=== PATIENT | female | born 1945 | race Caucasian/White ===

== ENCOUNTER → 2018-10-21 | Outpatient (CLI) | payer MEDICARE, OTHER, SELFPAY ==
[2018-09-26 12:56] VITALS: BMI 24.5
--- NOTE | 2018-10-21 12:06 | BI_ITS ---
MAMMOGRAPHY - BILATERAL SCREENING REASON FOR EXAM: Female, 73 years old. Routine annual screening examination. PERTINENT HISTORY: Non-contributory. Bilateral breast implants. TECHNIQUE: Digital bilateral breast sandie (3D mammographic acquisition) in the CC and MLO projections. 2-D mediolateral oblique (MLO) and craniocaudad (CC) views of both breasts were obtained. CAD: Full Field Digital Mammography with Computer Added Detection was performed. COMPARISON: Comparison is made with prior examination dated March 09, 2017. FINDINGS: Breast Composition: The breasts are heterogeneously dense, which may obscure small masses. There are no dominant masses or suspicious calcifications. Since prior study, the breast implants have been replaced. Stable small benign-appearing bilateral axillary lymph nodes. No other significant abnormalities are identified. BI/SCREEN MAMM (CAD) W/SANDIE BILAT IMPRESSION: Stable bilateral screening mammogram. The bilateral breast implants have been replaced as compared to prior study. Yearly follow-up mammogram recommended. (A) ASSESSMENT CATEGORY: BIRADS Category 2: Benign. A letter regarding these results will be sent to the patient by the facility within 30 days. Approximately 10% of breast cancers are not detected by mammography. A normal mammogram should not delay biopsy of a clinically suspicious abnormality. [id number] Electronically Signed: Geovanny Eason, at 14:51 EDT , Service support ,
== END | disposition home or self-care (01) ==
PROVIDERS: Family Provider Internal Medicine; PCP Obstetrics & Gynecology; Referring Provider Obstetrics & Gynecology; Visit Provider Obstetrics & Gynecology
DX: Z12.31 Encounter for screening mammogram for malignant neoplasm of breast (principal)
CPT/HCPCS: 77063; 77067

== ENCOUNTER 2018-11-28 05:40 | Day surgery (SDC) | payer MEDICARE, OTHER, SELFPAY ==
--- NOTE | 2018-11-20 03:26 | HP_ITS ---
Intake Vital Signs 11/20/18 Body Mass Index (BMI) 24.5 11/20/18 Height 5 ft 5 in 11/20/18 Weight: 146 lb 3 oz 11/20/18 Body Mass Index (BMI) 24.3 11/20/18 Blood Pressure 142/74 H 11/20/18 Blood Pressure Location Rt brachial 11/20/18 Blood Pressure Position Sitting 11/20/18 Respiratory Rate 20 H 11/20/18 Pulse Rate 54 L 11/20/18 Pulse Ox 98 Intake Visit Reasons: update H&P for hernia repair Chief Complaint: update H&P for inguinal hernia X Ray Technologist Required: No Is patient in pain?: Yes (LLQ pain ) Pain scale (1-10): 3 Allergies latex Allergy (Mild, Verified 11/20/18 13:10) hives Sulfa (Sulfonamide Antibiotics) Allergy (Mild, Verified 11/20/18 13:10) hives codeine Adverse Reaction (Mild, Verified 11/20/18 13:10) palpitations levofloxacin [From Levaquin] Adverse Reaction (Mild, Verified 11/20/18 13:10) myalgias Medications atenolol 50 mg tablet 50 mg PO DAILY 09/26/18 [History Confirmed 11/20/18] atorvastatin 20 mg tablet 20 mg PO DAILY 09/26/18 [History Confirmed 11/20/18] calcium polycarbophil 625 mg tablet 1,250 mg PO DAILY 09/26/18 [History Confirmed 11/20/18] celecoxib 200 mg capsule 200 mg PO DAILY 09/26/18 [History Confirmed 11/20/18] glucosamine 750 dq-iunfbwxneb-zlp no.1 625 mg-C 30 ov-jqcr-zazh tablet 2 tab PO DAILY 09/26/18 [History Confirmed 11/20/18] lorazepam 0.5 mg tablet 0.5 mg PO QHS PRN 09/26/18 [History Confirmed 11/20/18] magnesium 250 mg tablet 250 mg PO DAILY 09/26/18 [History Confirmed 11/20/18] omeprazole 20 mg capsule,delayed release 20 mg PO DAILY 09/26/18 [History Confirmed 11/20/18] zolpidem 10 mg tablet PO QHS PRN tab 09/26/18 [History Confirmed 11/20/18] apremilast 30 mg tablet 30 mg PO QDAY tab 11/20/18 [History Confirmed 11/20/18] Is last menstrual period known: No Post menopausal: Yes Patient : No PFSH Medical History Back pain (Acute) Emphysema of lung (Acute) GERD (gastroesophageal reflux disease) (Acute) Hyperlipidemia (Acute) Osteoarthritis (Acute) COPD (chronic obstructive pulmonary disease) (Chronic) HTN (hypertension) (Chronic) Surgical History History of back surgery (Acute ~2012) History of bilateral breast implants (Acute) History of colonoscopy (Acute ~2018) History of dilation and curettage (Acute) History of esophagogastroduodenoscopy (EGD) (Acute ~2018) History of neck surgery (Acute) Status post hip surgery (Acute) Status post tonsillectomy and adenoidectomy (Acute) Family History Father Heart disease CHF (congestive heart failure) Diabetes Mother Heart disease Social History (Updated 11/20/18 @ 15:26 by Eleazar Ortega MD) Smoking Status: Former smoker HPI HPI HPI: ADA CHURCH, is a 73 F who presents to the office today for HPI HPI Surgical H&P: Yes HPI: ADA CHURCH, is a 73 F who presents to the office today for left groin pain. Patient notes that she has been having left groin pain which has been worsening and constant. She is very tender in the groin region and feeling bulging. ROS General General: No weight change, appetite, fatigue, colon cancer, breast cancer or weakness HEENT HEENT: No difficulty swallowing, eye injury, eye surgery, swollen glands or hoarseness Endo Endocrine: No thyroid disease, diabetes mellitus, thyroid cancer, Hair loss, heat intolerance or cold intolerance Musc Musculoskeletal: Yes back problems and arthritis; no rheumatoid arthritis, gout or joint pain Cardio Cardiovascular: Yes high blood pressure; no murmur, pacemaker, heart disease, atrial fibrillation, heart attack, heart stent, palpitations, shortness of breat with exertion or chest pain Resp Respiratory: Yes shortness of breath, No sleep apnea, No cough, Yes COPD, No asthma, Yes emphysema, No wheezing Gastro Gastrointestinal: Yes abdominal pain, No nausea or vomiting, No diarrhea, Yes constipation, No blood in stool, Yes acid reflux, No hemorrhoids, No ulcers, No gallbladder problem, No black,tarry stools Neuro Neurologic: No weakness Exam Const General: cooperative Orientation: alert, oriented x3 Resp Effort & Inspection: normal respiratory effort Auscultation: clear to auscultation bilaterally Cardio Rate: regular rate Rhythm: regular rhythm Heart Sounds: no murmurs GI Inspection: non-distended Palpation: soft, nontender Musc Other: Left groin pain with a small bulge Assessment & Plan Problems 1. Left groin pain R10.32 Plan Patient is having groin pain and would like her hernia repaired as she feels that it is unbearable. I do appreciate a very small bulge which is reducible. She does xiphoid tenderness over the direct hernia space. I explained laparoscopic robotic inguinal hernia repair. I explained the risks including but not limited to bleeding, infection, chronic groin pain, injury to surrounding structures, hernia recurrence. I also explained placing mesh. Patient understands risks and is willing to proceed. Eleazar Ortega MD Pager: [facility] [address] [place] [address], [address] [place] [address] Office: Coding Level of Care Code Off vis,est,level 3 Diagnoses Left groin pain R10.32 11/20/18 1526 <Electronically signed by Eleazar muñoz MD> Date _ Eleazar Ortega MD I have re-examined the patient. There are no clinical changes since date of exam.
[2018-11-20 13:11] VITALS: BMI 24.5
--- NOTE | 2018-11-28 05:47 | EKG12_ITS ---
Test Reason : PRE OP Blood Pressure : / mmHG Vent. Rate : 050 BPM Atrial Rate : 050 BPM P-R Int : 158 ms QRS Dur : 078 ms QT Int : 452 ms P-R-T Axes : 075 045 050 degrees QTc Int : 412 ms Sinus bradycardia Otherwise normal ECG No previous ECGs available Confirmed by SEBASTIÁN AYALA, ALEXANDREA ([id number]), subeditor HUSSAIN VO ([id number]) on 12/02/2018 1:34:55 PM Referred By: Eleazar Ortega Confirmed By:NAOMI LOWERY MD
[2018-11-28 06:21] VITALS: BP 130/56; PULSE 54; RESP 15; TEMP 36.4; O2SAT 100; BMI 26.2
[2018-11-28 06:26] LABS: Hematocrit 41.5 % (37-47); Hemoglobin 13.6 g/dL (12.0-15.0); Mean Corp Hgb Conc 32.8 g/dL (32-36); Mean Corpuscular Hgb 32.3 pg (27.0-32.0); Mean Corpuscular Volume 98.6 fL (81-99); Platelet Count 160 K/mm3 (150-450); RBC Distribution Width SD 43.4 fl (35.1-43.9); Red Blood Count 4.21 M/mm3 (4.2-5.4)
[2018-11-28 06:30] LABS: International Normalized Ratio 0.9; Partial Thromboplast Time 26.9 Seconds (24.1-36.2); Prothrombin Time (Protime)PT. 12.1 SECONDS (11.7-14.9)
[2018-11-28 06:42] LABS: AST(SGOT) 20 U/L (15-37); Alanine Aminotransfer ALT/SGPT 23 U/L (13-56); Albumin, Serum 3.5 g/dL (3.2-5.0); Alkaline Phosphatase 65 U/L (45-117); Bilirubin, Direct 0.13 mg/dL (0.00-0.30); Globulin 3.3 g/dL (2.2-4.2); Protein, Total 6.8 g/dL (6.4-8.2)
[2018-11-28] MEDS: Cefazolin 2 GM in 0.9% Normal Saline 100 ML IV (07:11)
[2018-11-28] MEDS: Bupivacaine Mpf 0.5% 30 ML VIAL (08:30)
[2018-11-28 08:45] VITALS: BP 117/48; BP 130/56; PULSE 56; RESP 18; TEMP 36.4; O2SAT 95
--- NOTE | 2018-11-28 08:46 | PCM.OPRPT ---
Problem List (1) Ventral hernia without obstruction or gangrene Status: Acute Report of Operation Date of Procedure: 11/28/18 Pre-Operative Diagnosis: Left inguinal hernia Post-Operative Diagnosis: Ventral hernia in the left lower quadrant Surgery/Procedure Performed:: Robotic assisted laparoscopic ventral hernia repair with mesh Specimen's removed: None Description of Procedure: Patient was brought back to the operating room and general anesthesia was induced. The abdomen was prepped and draped in usual sterile fashion. A midline incision was made superior to the umbilicus and a Veress needle was placed into the abdomen and a drop test was performed. The abdomen was then insufflated to 15 mmHg and the Veress needle was removed. Robotic camera port was placed into the abdomen and then the camera was placed into the abdomen and it was inspected. There were no injuries from entry. Next under direct visualization an 8 mm port was placed in the right lower quadrant and left lower quadrant. The patient was then placed into steep Trendelenburg position and the robot was docked. The patient appeared to have a hernia in the lower abdomen but it was not an inguinal hernia. The hernia was small and was medial to the left medial umbilical ligament. An incision was made in the peritoneum superior to this hernia. Blunt dissection was carried inferiorly until the hernia sac was reached and it was reduced into the abdomen along with preperitoneal fat contents. The dissection was carried posteriorly until there was enough room for the mesh. Next a piece of pro-radio television announcer mesh was trimmed and placed into the abdomen and unfolded over the hernia. This sufficiently covered the hernia defect. The peritoneum was then reapproximated using a running 3-0V lock suture. This completely covered the mesh and the hernia sac was left reduced into the abdomen. The instruments were removed and the abdomen was allowed to desufflate. The skin incisions were anesthetized lidocaine closed with interrupted 4-0 Monocryl suture, Steri-Strips, and bandages. Patient was awoken and taken to PACU in stable condition and tolerated the procedure well. Needle and sponge counts were correct x2 at the end of the case. Grafts/Implants Used: Pro-radio television announcer mesh in the left groin - Admit VTE Documentation VTE Mechan Device Prophylaxis: SCD's
--- NOTE | 2018-11-28 08:50 | DCINST_ITS ---
Discharge Diet: Light diet - advance as tolerated Discharge Activity: Return to Normal Activity, May Not Drive - for 2-3 days or while taking narcotic pain meds., May Shower - with the bandage in place 1-2 days after surgery. Lifting Restrictions: 20 pounds for 4 weeks. Additional Activity Instructions:: Climbing stairs is fine, walking is encouraged. Sitting in bed may be uncomfortable. Sitting up using your lateral muscles (sitting up sideways) is usually more comfortable. Do not drive, work heavy equipment of sign legal documents for 24 hours. Pain medications may cause nausea, you should typically eat light foods as you take your pain medications. Pain medications may also cause constipation. If you have difficulty with this, discuss with your doctor. Ice pack over groin as needed. Call your doctor if your incision/area has: Continuous Slow Oozing, Sudden Increased Bleeding, Increased Pain/ Swelling, Increased Redness, Foul Smelling Discharge Call your doctor if you observe: Fever of 101 or Higher Suture Line Care: Avoid Pulling/Pushing, Avoid Pinching/Bending Change Dressing in (Days):: 3 - Leave steri-strips for 1 week. May protect with a guaze bandaid. Cleanse incision/area with: Keep Dressing Clean & Dry Additional Instructions: Resume celebrex and anti-inflammatory medication in 2 days. Allergies/Adverse Reactions: Allergies latex Allergy (Mild, Verified 11/28/18 06:20) hives Sulfa (Sulfonamide Antibiotics) Allergy (Mild, Verified 11/28/18 06:20) hives codeine Adverse Reaction (Mild, Verified 11/28/18 06:20) palpitations levofloxacin [From Levaquin] Adverse Reaction (Mild, Verified 11/28/18 06:20) myalgias Medications to take at Discharge atenolol 50 mg tablet 50 mg PO DAILY 09/26/18 atorvastatin 20 mg tablet 20 mg PO DAILY 09/26/18 celecoxib 200 mg capsule 200 mg PO DAILY 09/26/18 glucosamine 750 aw-kvaiachuud-zvy no.1 625 mg-C 30 lf-fmfl-xfsl tablet 2 tab PO DAILY 09/26/18 lorazepam 0.5 mg tablet 0.5 mg PO QHS PRN 09/26/18 omeprazole 20 mg capsule,delayed release 40 mg PO DAILY 09/26/18 zolpidem 10 mg tablet 10 mg PO QHS PRN tab 09/26/18 apremilast 30 mg tablet 30 mg PO QDAY tab 11/20/18 Calcium Polycarbophil [Fiber Tabs] 625 mg PO DAILY 11/25/18 Oxycodone HCl/Acetaminophen [Percocet 5/325] 1 - 2 tablet PO Q4H PRN PRN 7 Days #20 tablet 11/28/18 The following prescriptions were given: Oxycodone HCl/Acetaminophen [Percocet 5/325] 1 - 2 tablet PO Q4H PRN PRN 7 Days #20 tablet PRN Reason: Pain Transmission Status: Sent to [facility] Primary Care Physician: Dustin Alvarez [Primary Care Provider] - Test Results: Test results from this visit will be discussed in further detail at your follow- up appointment, if applicable. Please Follow Up With: Eleazar Ortega MD When: Please call to schedule 2 week follow up appointment. [phone]
[2018-11-28 09:00] VITALS: BP 114/46; BP 130/56; PULSE 56; RESP 18; O2SAT 92
[2018-11-28 09:15] VITALS: BP 121/48; BP 130/56; PULSE 46; RESP 18; O2SAT 94
[2018-11-28 09:30] VITALS: BP 119/52; BP 130/56; PULSE 54; RESP 18; TEMP 36.4; O2SAT 95
[2018-11-28] MEDS: oxyCODONE 5 MG Tablet PO (10:04)
[2018-11-28 11:52] VITALS: BP 116/58; BP 130/56; PULSE 60; RESP 16; TEMP 36.8; O2SAT 98
== END 2018-11-28 11:55 | disposition home or self-care (01) ==
LOC: SDC 05:41 → AC 05:42
PROVIDERS: Anesthesiology; Family Provider Internal Medicine; PCP Internal Medicine; Referring Provider Surgery; Visit Provider Surgery
PROC: 0YQ64ZZ Repair Left Inguinal Region, Percutaneous Endoscopic Approach (ICD-10-PCS; CPT 49652; principal; 2018-11-28 06:55)
DX: K43.9 Ventral hernia without obstruction or gangrene (principal); J43.9 Emphysema, unspecified; K21.9 Gastro-esophageal reflux disease without esophagitis; E78.00 Pure hypercholesterolemia, unspecified; L40.50 Arthropathic psoriasis, unspecified; I10 Essential (primary) hypertension; G25.81 Restless legs syndrome; Z78.0 Asymptomatic menopausal state; Z79.899 Other long term (current) drug therapy; Z87.891 Personal history of nicotine dependence; R10.32 Left lower quadrant pain
CPT/HCPCS: 49652; 36415; 80076; 85027; 85610; 85730; 93005; J7120; J2405

== ENCOUNTER → 2019-01-08 13:16 | Outpatient (CLI) | payer MEDICARE, OTHER, SELFPAY ==
[2019-01-12 03:09] LABS: QNTFERON TB Mitogen Value > 10.00 IU/mL (.); QNTFERON TB Nil Value 0.02 IU/mL (.); QNTFERON TB1+ Ag Value 0.03 IU/mL (.); QNTFERON TB2+ Ag Value 0.02 IU/mL (.)
[2019-01-12 11:30] LABS: QNTIFERON TB Positive Criteria Negative (Negative)
== END ==
PROVIDERS: Family Provider Internal Medicine; PCP Internal Medicine; Referring Provider Nurse Practitioner Family; Visit Provider Nurse Practitioner Family
DX: L40.0 Psoriasis vulgaris (principal)
CPT/HCPCS: 36415; 86480

== ENCOUNTER → 2019-01-09 14:48 | Outpatient (CLI) | payer MEDICARE, OTHER, SELFPAY ==
--- NOTE | 2019-01-09 14:49 | CT_ITS ---
STUDY: CT ABDOMEN AND PELVIS WITH CONTRAST REASON FOR EXAM: Female, 73 years old. Left lower quadrant abdominal pain and hernia repair left inguinal November 2018 RADIATION DOSAGE (If Supplied By Facility): CTDIvol = ( 13.26 ) mGy, DLP = ( 777.56 ) mGycm TECHNIQUE: Transaxial images were obtained from the dome of the diaphragm to the symphysis pubis without oral contrast. IV/Oral Isovue 300 100ml was administered. Sagittal and coronal images were reconstructed. Individualized dose optimization techniques were used for this CT. ( COMPARISON: None. FINDINGS: The visualized lung bases are unremarkable. Calcific mitral valve. Multiple hepatic cysts measuring up to 9 mm. Normal gallbladder and extrahepatic biliary system. 6 mm dense or enhancing lesion within the spleen may represent hemangioma. Normal pancreas. Normal bilateral adrenal glands. Normal right kidney. Normal left kidney. Moderate hiatal hernia. Oral contrast is noted throughout the small large bowel. Severe sigmoid diverticulosis without definite evidence of acute inflammation. Appendix is not identified. Normal abdominal aorta. Normal inferior vena cava. Normal retroperitoneum. Normal urinary bladder. Uterus normal. Bilateral fat-containing inguinal hernias. 15 mm cystic lesion is noted within the left inguinal hernia. There is a small umbilical hernia containing fat. Normal osseous structures. CT/Abdomen/Pelvis WITH Contrast IMPRESSION: Severe sigmoid diverticulosis with minimal if any acute inflammation appreciated at this time. Electronically Signed: Cedric Ramires MD at 23:12 EDT , Service support ,
[2019-01-09 15:31] LABS: CREATININE FINGERSTICK 0.8 mg/dL (0.55-1.02)
== END ==
PROVIDERS: Family Provider Internal Medicine; PCP Internal Medicine; Referring Provider Surgery; Visit Provider Surgery
DX: K43.9 Ventral hernia without obstruction or gangrene (principal)
CPT/HCPCS: 74177; Q9967

== ENCOUNTER 2019-01-15 08:23 | Day surgery (SDC) | payer MEDICARE, OTHER, SELFPAY ==
[2019-01-14 14:32] VITALS: BMI 26.2
--- NOTE | 2019-01-14 15:26 | PCM.HP.BLA ---
Problem List (1) Lipoma Status: Acute Qualifiers: Lipoma location: lower extremity Laterality: left Qualified Code(s): D17.24 - Benign lipomatous neoplasm of skin and subcutaneous tissue of left leg History and Physical Date of Admission: 01/14/19 Intake Vital Signs 01/14/19 Body Mass Index (BMI) 26.2 01/14/19 Height 5 ft 3.5 in 01/14/19 Weight: 147 lb 01/14/19 Body Mass Index (BMI) 25.6 01/14/19 Blood Pressure 118/68 01/14/19 Blood Pressure Location Rt brachial 01/14/19 Blood Pressure Position Sitting 01/14/19 Respiratory Rate 16 Intake Visit Reasons: F/U CT Results Chief Complaint: post LIH repair 11-28-18 Business 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: No Is patient in pain?: Yes (LLQ abdomen) Allergies latex Allergy (Mild, Verified 01/14/19 14:31) hives Sulfa (Sulfonamide Antibiotics) Allergy (Mild, Verified 01/14/19 14:31) hives codeine Adverse Reaction (Mild, Verified 01/14/19 14:31) palpitations levofloxacin [From Levaquin] Adverse Reaction (Mild, Verified 01/14/19 14:31) myalgias Medications atenolol 50 mg tablet 50 mg PO DAILY 09/26/18 [History Confirmed 01/14/19] atorvastatin 20 mg tablet 20 mg PO DAILY 09/26/18 [History Confirmed 01/14/19] celecoxib 200 mg capsule 200 mg PO DAILY 09/26/18 [History Confirmed 01/14/19] glucosamine 750 yl-izuuimvcvn-uou no.1 625 mg-C 30 di-fpxc-bift tablet 2 tab PO DAILY 09/26/18 [History Confirmed 01/14/19] lorazepam 0.5 mg tablet 0.5 mg PO QHS PRN 09/26/18 [History Confirmed 01/14/19] omeprazole 20 mg capsule,delayed release 40 mg PO DAILY 09/26/18 [History Confirmed 01/14/19] zolpidem 10 mg tablet 10 mg PO QHS PRN tab 09/26/18 [History Confirmed 01/14/19] apremilast 30 mg tablet 30 mg PO QDAY tab 11/20/18 [History Confirmed 01/14/19] Calcium Polycarbophil [Fiber Tabs] 625 mg PO DAILY 11/25/18 [History Confirmed 01/14/19] omega 0-vid-phq-fish oil 1,000 mg (120 mg-180 mg) capsule 1 cap PO DAILY 01/14/19 [History Confirmed 01/14/19] [facility] Medical History Back pain (Acute) Emphysema of lung (Acute) GERD (gastroesophageal reflux disease) (Acute) Hyperlipidemia (Acute) Osteoarthritis (Acute) COPD (chronic obstructive pulmonary disease) (Chronic) HTN (hypertension) (Chronic) Surgical History History of back surgery (Acute ~2012) History of bilateral breast implants (Acute) History of colonoscopy (Acute ~2018) History of dilation and curettage (Acute) History of esophagogastroduodenoscopy (EGD) (Acute ~2018) History of inguinal hernia repair (Acute ~11/2018) History of neck surgery (Acute) Status post hip surgery (Acute) Status post tonsillectomy and adenoidectomy (Acute) Family History Father Heart disease CHF (congestive heart failure) Diabetes Mother Heart disease Social History (Updated 01/14/19 @ 15:25 by Eleazar Ortega MD) Smoking Status: Former smoker HPI HPI HPI: ADA CHURCH, is a 73 F who presents to the office today for HPI HPI HPI: ADA CHURCH, is a 73 F who presents to the office today for left groin pain. Patient recently had laparoscopic suprapubic ventral hernia repair with mesh. She is still complaining of left groin pain. ROS General General: No weight change, appetite, fatigue, colon cancer, breast cancer or weakness HEENT HEENT: No difficulty swallowing, eye injury, eye surgery, swollen glands or hoarseness Endo Endocrine: No thyroid disease, diabetes mellitus, thyroid cancer, Hair loss, heat intolerance or cold intolerance Musc Musculoskeletal: Yes back problems and arthritis; no rheumatoid arthritis, gout or joint pain Cardio Cardiovascular: Yes high blood pressure; no murmur, pacemaker, heart disease, atrial fibrillation, heart attack, heart stent, palpitations, shortness of breat with exertion or chest pain Resp Respiratory: Yes shortness of breath, No sleep apnea, No cough, Yes COPD, No asthma, Yes emphysema, No wheezing Gastro Gastrointestinal: Yes abdominal pain, No nausea or vomiting, No diarrhea, Yes constipation, No blood in stool, Yes acid reflux, No hemorrhoids, No ulcers, No gallbladder problem, No black,tarry stools Neuro Neurologic: No weakness Exam Const General: cooperative Orientation: alert, oriented x3 Resp Effort & Inspection: normal respiratory effort Auscultation: clear to auscultation bilaterally Cardio Rate: regular rate Rhythm: regular rhythm Heart Sounds: no murmurs GI Inspection: non-distended Palpation: soft, nontender Other: No appreciable left groin bulging Assessment & Plan Problems 1. Lipoma D17.9 Plan The patient had laparoscopic ventral hernia for a small hernia superior to the bladder. At that time there was no appreciable left or right inguinal hernia from the inside. Patient was still complaining of left groin pain. I obtained a CAT scan which showed a small fluid collection as well as lipoma in the left inguinal region. This appears to be possibly a cord lipoma as there was no hernia or preperitoneal fat. She says that she is having pain left groin which radiates upward. As she has abnormality on the CAT scan I would recommend excising this to see if this resolves the pain. I explained this would mean an incision in the left groin as well as the risks of bleeding, infection, chronic groin pain, nerve injury. I explained that no mesh would need to be placed because she is already had an inguinal hernia repair. The patient understands the risks and is willing to proceed with left inguinal lipoma excision. Eleazar Ortega MD Pager: [facility] [address] [place] [address], [address] [place] [address] Office:
[2019-01-15] VITALS (12 sets, daily range): BP systolic 78–130; BP diastolic 37–50; PULSE 52–60; RESP 16–18; TEMP 36.3–36.6; O2SAT 93–100; BMI 25.4
--- NOTE | 2019-01-15 | LIP_PTH ---
PATIENT: ADA MCKEON [place] [facility] [place] [place][id number] AGE/SX: 73/F ROOM: RE01/15/[address]: Dr. Eleazar Ortega MD : [id number] BED: DIS: 01/15/2019 SPEC #: [id number] RECD: 01/15/19 13:54 STATUS: MESFIN RECarrie #: [id number] GEOVANY: 01/15/19 00:[address]: Eleazar Ortega DEPT: SURGICAL PATHOLOGY RECD BY: Alvarez Pereyra ENTERED: 01/15/19 13:55 SP TYPE: LIPOMA OTHR DR: Dr. Dustin Alvarez MD Tissues: Soft tissues, NOS Procedures: Surgery Specimen Level III HEADER OPERATION: Inguinal cord lipoma excision PRE-OP DIAGNOSIS: Lipoma TISSUE SUBMITTED: Lipoma of left groin MICROSCOPIC DIAGNOSIS Soft tissue lesion of left groin, excision: Mature adipose tissue consistent with lipoma. AM:carmine 01/16/19 MICROSCOPIC DESCRIPTION Slides are reviewed. GROSS DESCRIPTION Received in fixative is one container labeled with the patient's name and designated lipoma left groin. The specimen consists of an irregular piece of yellow adipose tissue measuring 3.5 x 2.5 x 1.5 cm. Sections reveal yellow adipose cut surfaces without area of hemorrhage, necrosis or cystic degeneration. Senior Electronics Engineer sections are submitted in one cassette. / SJ:carmine 01/15/19 TC:5 CPT: 21436
[2019-01-15] MEDS: Bupivacaine Mpf 0.5% 30 ML VIAL (10:10)
[2019-01-15] MEDS: Cefazolin 2 GM in 0.9% Normal Saline 100 ML IV (10:17)
--- NOTE | 2019-01-15 10:50 | PCM.OPRPT ---
Problem List (1) Lipoma Status: Acute Qualifiers: Lipoma location: lower extremity Laterality: left Qualified Code(s): D17.24 - Benign lipomatous neoplasm of skin and subcutaneous tissue of left leg Report of Operation Date of Procedure: 01/15/19 Pre-Operative Diagnosis: Lipoma in left inguinal region Post-Operative Diagnosis: Left inguinal lipoma. Postoperative hematoma Surgery/Procedure Performed:: Left inguinal cord lipoma excision and hematoma evacuation Specimen's removed: Left cord lipoma Description of Procedure: The patient was brought back to the operating room and MAC anesthesia was induced. Left groin was prepped and draped in usual sterile fashion. There was a palpable marble sized hematoma deep in the inguinal canal. An incision was made over this and electrocautery was used to deepen this external aponeurosis. The external aponeurosis was opened with Metzenbaum scissors and the hematoma and lipoma were identified. The patient's lipoma was removed with blunt dissection and electrocautery. The patient had a well circumscribed marble sized hematoma originating from her prior inguinal hernia repair. This was excised and evacuated. The lipoma measured approximately 2.5 cm in diameter. This was sent for pathology. The patient's external aponeurosis was closed with external 3-0 Vicryl sutures. Deep Dimitris's fascia was closed with interrupted 3-0 Vicryl sutures. Skin was closed with a running 4-0 Monocryl and Dermabond glue. Patient was taken to PACU in stable condition. Patient tolerated the procedure well. - Admit VTE Documentation VTE Mechan Device Prophylaxis: SCD's
--- NOTE | 2019-01-15 10:52 | DCINST_ITS ---
You will use the following diet at home:: No restrictions, Regular Your food should be the consistency of: Regular Your liquids should be the consistency of: Regular/Thin Discharge Activity: Return to Normal Activity, May Shower - tomorrow Call your doctor if your incision/area has: Continuous Slow Oozing, Sudden Increased Bleeding, Increased Pain/ Swelling, Increased Redness, Foul Smelling Discharge, Swelling at the incision site Call your doctor if you observe: Fever of 101 or Higher Cleanse incision/area with: Soap & Water Allergies/Adverse Reactions: Allergies latex Allergy (Mild, Verified 01/15/19 08:49) hives Sulfa (Sulfonamide Antibiotics) Allergy (Mild, Verified 01/15/19 08:49) hives codeine Adverse Reaction (Mild, Verified 01/15/19 08:49) palpitations levofloxacin [From Levaquin] Adverse Reaction (Mild, Verified 01/15/19 08:49) myalgias oxycodone [From OxyContin] Adverse Reaction (Verified 01/15/19 08:49) Nausea/Vom/Diarrhea Medications to take at Discharge atenolol 50 mg tablet 50 mg PO DAILY 09/26/18 atorvastatin 20 mg tablet 20 mg PO DAILY 09/26/18 celecoxib 200 mg capsule 200 mg PO DAILY 09/26/18 glucosamine 750 gs-lkehwmmdrt-pew no.1 625 mg-C 30 pd-llvx-khol tablet 2 tab PO DAILY 09/26/18 lorazepam 0.5 mg tablet 0.5 mg PO QHS PRN 09/26/18 omeprazole 20 mg capsule,delayed release 40 mg PO DAILY 09/26/18 zolpidem 10 mg tablet 10 mg PO QHS PRN tab 09/26/18 Calcium Polycarbophil [Fiber Tabs] 625 mg PO DAILY 11/25/18 omega 8-qps-xar-fish oil 1,000 mg (120 mg-180 mg) capsule 1 cap PO DAILY 01/14/19 Primary Care Physician: Dustin Alvarez [Primary Care Provider] - Test Results: Test results from this visit will be discussed in further detail at your follow- up appointment, if applicable. Please Follow Up With: Eleazar Ortega MD When: Please call to schedule 2 week follow up appointment. [phone]
[2019-01-15] MEDS: Lactated Ringers 1,000 ML 100 ML IV (11:40)
== END 2019-01-15 12:30 | disposition home or self-care (01) ==
LOC: SDC 08:24 → AC 08:25
PROVIDERS: Family Provider Internal Medicine; PCP Internal Medicine; Referring Provider Surgery; Visit Provider Surgery
PROC: (CPT 10140; principal; 2019-01-15 10:15)
DX: D17.24 Benign lipomatous neoplasm of skin and subcutaneous tissue of left leg (principal); L76.32 Postprocedural hematoma of skin and subcutaneous tissue following other procedure; J43.9 Emphysema, unspecified; K21.9 Gastro-esophageal reflux disease without esophagitis; M19.90 Unspecified osteoarthritis, unspecified site; I10 Essential (primary) hypertension; I34.1 Nonrheumatic mitral (valve) prolapse; G25.81 Restless legs syndrome; K44.9 Diaphragmatic hernia without obstruction or gangrene; E78.00 Pure hypercholesterolemia, unspecified; L40.50 Arthropathic psoriasis, unspecified; Z78.0 Asymptomatic menopausal state; Z79.899 Other long term (current) drug therapy; Z87.891 Personal history of nicotine dependence
CPT/HCPCS: 10140; 27047; 88304; J7120; J2405

== ENCOUNTER → 2019-05-08 12:50 | Outpatient (CLI) | payer MEDICARE, OTHER, SELFPAY ==
[2019-04-25 13:39] VITALS: BMI 25.4
--- NOTE | 2019-05-08 12:51 | CT_ITS ---
STUDY: CT ABDOMEN AND PELVIS WITH CONTRAST REASON FOR EXAM: Female, 73 years old. Abdominal pain LLQ. Prev lt inguinal hernia repair with additional surgery to remove blood vessel and fatty tumor. HTN-rx controlled. RADIATION DOSAGE (If Supplied By Facility): CTDIvol = ( 16.72 ) mGy, DLP = ( 634.61 ) mGycm TECHNIQUE: Transaxial images were obtained from the dome of the diaphragm to the symphysis pubis without oral contrast. Oral and amp; IV Readi-CAT and amp; 100mL Isovue-300 was administered. Sagittal and coronal images were reconstructed. Individualized dose optimization techniques were used for this CT. COMPARISON: Comparison is made with prior examination dated January 09, 2019. FINDINGS: Stable bilateral breast implants. The visualized lung bases are unremarkable. Coronary artery calcification. There is a 9 mm cyst in the left lobe of the liver. A 9 mm cyst is also seen along the inferior aspect of the right lobe of the liver. Normal gallbladder and extrahepatic biliary system. Normal spleen. Normal pancreas. Normal bilateral adrenal glands. Normal right kidney. Normal left kidney. There is a moderate hiatal hernia. Normal small intestine. There are multiple colonic diverticula consistent with diverticulosis. The appendix is visualized and appears normal. Normal abdominal aorta. Normal inferior vena cava. Normal retroperitoneum. Normal urinary bladder. Normal abdominal wall. There are degenerative changes of the visualized lumbar spine. CT/Abdomen/Pelvis WITH Contrast IMPRESSION: Small cysts in the liver. Moderate sized hiatal hernia. Sigmoid diverticulosis. Electronically Signed: Geovanny Eason, at 15:39 EST , Service support ,
[2019-05-08 13:05] LABS: CREATININE FINGERSTICK 1.3 mg/dL (0.55-1.02)
== END ==
PROVIDERS: Family Provider Internal Medicine; PCP Internal Medicine; Referring Provider Surgery; Visit Provider Surgery
DX: R10.84 Generalized abdominal pain (principal)
CPT/HCPCS: 74177; Q9967

== ENCOUNTER → 2019-12-05 11:46 | Outpatient (CLI) | payer MEDICARE, OTHER, SELFPAY ==
[2019-04-25 13:39] VITALS: BMI 25.4
--- NOTE | 2019-12-05 11:52 | BI_ITS ---
MAMMOGRAPHY - BILATERAL SCREENING REASON FOR EXAM: Female, 74 years old. Routine annual screening examination. PERTINENT HISTORY: Non-contributory. TECHNIQUE: Digital bilateral breast sandie (3D mammographic acquisition) in the CC and MLO projections. 2-D mediolateral oblique (MLO) and craniocaudad (CC) views of both breasts were obtained. CAD: Full Field Digital Mammography with Computer Added Detection was performed. COMPARISON: None. FINDINGS: Breast Composition: There are scattered areas of fibroglandular density. Bilateral breast implants are noted. There are no dominant masses or suspicious calcifications. No other significant abnormalities are identified. BI/SCREEN MAMM (CAD) W/SANDIE BILAT IMPRESSION: Stable bilateral screening mammogram. Yearly follow-up mammogram recommended. (A) ASSESSMENT CATEGORY: BIRADS Category 2: Benign. A letter regarding these results will be sent to the patient by the facility within 30 days. Approximately 10% of breast cancers are not detected by mammography. A normal mammogram should not delay biopsy of a clinically suspicious abnormality. [id number] Electronically Signed: Florinda Rainey, at 13:11 EDT Tel , Service support ,
== END ==
PROVIDERS: PCP Internal Medicine; Referring Provider Internal Medicine; Visit Provider Internal Medicine
DX: Z12.31 Encounter for screening mammogram for malignant neoplasm of breast (principal)
CPT/HCPCS: 77063; 77067

== ENCOUNTER → 2020-01-15 13:38 | Outpatient (CLI) | payer MEDICARE, OTHER, SELFPAY ==
[2019-12-25 07:26] VITALS: BMI 25.0
[2020-01-15 13:45] VITALS: PULSE 66; PULSE 69; PULSE 85; PULSE 87; PULSE 91; PULSE 93; PULSE 95; O2SAT 93; O2SAT 94; O2SAT 96; O2SAT 97; O2SAT 98
--- NOTE | 2020-01-15 15:46 | PCM.PSN.6M ---
PSN 6 Minute Walk Test - 6 Minute Walk Test 6 Minute Walk Test: 6 Minute Walk Test PSN:6-Minute Walk Test Start: 01/15/20 14:00 Freq: Status: Active Protocol: RESP.6MINW Document 01/15/20 13:45 AE (Rec: 01/15/20 14:04 [facility] [id number]) 6 Minute Walk Test Date Performed 01/15/20 Time Performed 13:45 Height 5 ft 4 in Weight: 63.503 kg Weight in Pounds 140.[address]: Dr Car Assistive device used: None Pre-test Oxygen Delivery Method Room Air Pulse Ox (%) 97 Pulse Rate (60-100 beats/min) 66 Dyspnea Maira Scale (0-10) 0 Exertion Maira Scale (6-20) 6 1st minute Oxygen Delivery Method Room Air Pulse Ox (%) 96 Pulse Rate (60-100 beats/min) 85 2nd minute Oxygen Delivery Method Room Air Pulse Ox (%) 97 Pulse Rate (60-100 beats/min) 87 3rd minute Oxygen Delivery Method Room Air Pulse Ox (%) 93 Pulse Rate (60-100 beats/min) 91 4th minute Oxygen Delivery Method Room Air Pulse Ox (%) 97 Pulse Rate (60-100 beats/min) 95 5th minute Oxygen Delivery Method Room Air Pulse Ox (%) 94 Pulse Rate (60-100 beats/min) 93 6th minute Oxygen Delivery Method Room Air Pulse Ox (%) 96 Pulse Rate (60-100 beats/min) 95 Dyspnea Maira Scale (0-10) 0.5 Exertion Maira Scale (6-20) 10 Post-test Oxygen Delivery Method Room Air Pulse Ox (%) 98 Pulse Rate (60-100 beats/min) 69 Full Laps Walked 20 Partial Lap, Number of Tiles Walked 36 Total Distance Walked (ft) 1216 - Interpretation Interpretation: The patient was able to ambulate 1216 feet over the course of 6 minutes on room air with no assistive devices or breaks. The patient did experience significant desaturation from a baseline of 97% to as low as 93%. No significant tachycardia was noted. These findings are consistent with a respiratory limitation exercise tolerance. - Recommendations Recommendations: No supplemental oxygen is indicated at this time.
== END ==
PROVIDERS: PCP Internal Medicine; Referring Provider Internal Medicine Critical Care Medicine; Visit Provider Internal Medicine Critical Care Medicine
DX: R06.02 Shortness of breath (principal)
CPT/HCPCS: 94618

== ENCOUNTER → 2020-02-16 12:46 | Outpatient (CLI) | payer MEDICARE, OTHER, SELFPAY ==
[2020-02-05 13:07] VITALS: BMI 25.0
== END ==
PROVIDERS: PCP Internal Medicine; Referring Provider Nurse Practitioner Acute Care; Visit Provider Nurse Practitioner Acute Care
DX: R06.00 Dyspnea, unspecified (principal); R06.02 Shortness of breath
CPT/HCPCS: 93306

== ENCOUNTER → 2020-03-01 | Outpatient (CLI) | payer MEDICARE, OTHER, SELFPAY ==
[2020-02-05 13:07] VITALS: BMI 25.0
== END | disposition home or self-care (01) ==
LOC: LABSPEC 17:58
PROVIDERS: PCP Internal Medicine; Referring Provider Otolaryngology; Visit Provider Otolaryngology
DX: Z11.59 Encounter for screening for other viral diseases (principal)
CPT/HCPCS: 87635; C9803; U0003

== ENCOUNTER → 2021-02-18 15:07 | Outpatient (CLI) | payer MEDICARE, OTHER, SELFPAY ==
--- NOTE | 2021-02-18 15:09 | BI_ITS ---
MAMMOGRAPHY - BILATERAL SCREENING REASON FOR EXAM: Female, 75 years old. Routine annual screening examination. PERTINENT HISTORY: Non-contributory. Breast. TECHNIQUE: Digital bilateral breast sandie (3D mammographic acquisition) in the CC and MLO projections. 2-D mediolateral oblique (MLO) and craniocaudad (CC) views of both breasts were obtained. CAD: Full Field Digital Mammography with Computer Added Detection was performed. COMPARISON: Comparison is made with prior study 12/05/2019 and 10/21/2018. FINDINGS: Breast Composition: There are scattered areas of fibroglandular density. There are no dominant masses or suspicious calcifications. Since prior study, there is a deformity of the left breast implant. Rupture should be ruled out. No other significant abnormalities are identified. BI/SCRN MAMM (CAD)W/SANDIE BILAT IMPRESSION: Stable bilateral screening mammogram. Findings suggest low-grade rupture of the left breast implant. Correlation with MRI is recommended. ASSESSMENT CATEGORY: BIRADS Category 0: Incomplete. Need additional imaging evaluation. A letter regarding these results will be sent to the patient by the facility within 30 days. Approximately 10% of breast cancers are not detected by mammography. A normal mammogram should not delay biopsy of a clinically suspicious abnormality. [id number] Electronically Signed: Geovanny Eason MD at 8:08 EST , Service support ,
== END ==
PROVIDERS: PCP Internal Medicine; Referring Provider Internal Medicine; Visit Provider Internal Medicine
DX: Z12.31 Encounter for screening mammogram for malignant neoplasm of breast (principal)
CPT/HCPCS: 77063; 77067

== ENCOUNTER → 2024-11-28 | Outpatient (CLI) | payer MEDICARE, OTHER, SELFPAY | END | disposition home or self-care (01) | LOC: PSN 11:55 | PROVIDERS: PCP Nurse Practitioner Acute Care; Referring Provider Internal Medicine Cardiovascular Disease; Visit Provider Internal Medicine Cardiovascular Disease | DX: R00.2 Palpitations (principal); R07.9 Chest pain, unspecified; R06.02 Shortness of breath | CPT/HCPCS: 93225; 93226 ==

== ENCOUNTER → 2024-12-30 | Outpatient (CLI) | payer MEDICARE, OTHER, SELFPAY ==
--- NOTE | 2024-12-30 12:41 | STE_ITS ---
Reason For Study Reason For Study: Shortness of breath Stress Results Protocol: Stress Echocardiogram [place] Protocol Maximum Predicted HR: 142 bpm Target HR: 121 bpm % Maximum Predicted HR: 111 % DurationHeart Rate Stage (mm:ss) (bpm) BP Comment Baseline 85 134/60Patient denies chest pain Stage 1 3:00 157 124/80Patient complains of shortness of breath. Denies chest pain Recovery 100 139/79Patient denies chest pain Stress Duration: 3:00 mm:ss Maximum Stress HR: 157 bpm Baseline Echocardiogram Findings Stress Echo Wall motion Data Resting WM Intermediate WM Stress WM Time Measurements MV dec time: 0.31 sec Doppler Measurements & Calculations MV E max magno: 111.2 cm/sec Lat Peak E' Magno: 7.1 cm/sec Med Peak E' Magno: 6.4 cm/sec MV A max magno: 145.4 cm/sec E/E' lat: 15.7 E/E' med: 17.4 MV E/A: 0.76 MV dec slope: 301.6 cm/sec2 ECHO/Stress Test Echo w/o Contrast Interpretation Summary Exercise stress echo. 79-year-old lady with a history of shortness of breath. Stress EKG. Resting EKG demonstrates normal sinus rhythm with a right bundle br anch block premature ventricular complexes and a rate of 85 bpm. Resting blood pressure is 134/61 mmHg. The alec ent exercised according to regular [place] protocol for total duration of 3 minutes the maximum heart rate attained was 15 0 bpm which was over 83% of max impacted heart rate. The patient was noted to have significant ventricular ectopy during exercise and also at rest. Upsloping EKG changes were noted which did not meet the criteria for ischemia the patient did however experience significant shortness of breath necessitating termination of the test at 4.6 METS. The peak blood pre ssure was 158/65 mmHg. Stress echocardiogram. The resting echocardiogram demonstrated preserved ejecti on fraction of 60% no obvious wall motion abnormalities were noted. At peak exercise there was improvement of ejection fr action to approximately 65% with no wall motion abnormalities noted. Significant ectopy was noted making appropriate nevaeh ge selection difficult. Conclusion: Exercise stress echo with suboptimal results due to low workload, and low exerc ise as well as significant ectopy during exercise. No obvious ischemia noted at this time but functional capacity appear s to be at least moderately reduced. Ordering Physician: Ronak Cortes Referring Physician: Ronak Cortes Performed By: Marisol Haq, AGAPITO, RVT
== END | disposition home or self-care (01) ==
LOC: CVS 12:38
PROVIDERS: PCP Nurse Practitioner Acute Care; Referring Provider Internal Medicine Cardiovascular Disease; Visit Provider Internal Medicine Cardiovascular Disease
DX: R06.02 Shortness of breath (principal)
CPT/HCPCS: 93017; 93350

== ENCOUNTER → 2025-01-13 | Outpatient (CLI) | payer MEDICARE, OTHER, SELFPAY ==
--- NOTE | 2025-01-13 15:06 | RAD_ITS ---
EXAM: XR Left Hand Complete, 3 or More Views CLINICAL INDICATION: RA TECHNIQUE: Frontal, lateral and oblique views of the left hand. COMPARISON: No relevant prior studies available. FINDINGS: BONES/JOINTS: Moderate degenerative changes of the 1st carpometacarpal joint. 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 No acute fracture. No dislocation. SOFT TISSUES: Soft tissue swelling. RAD/Hand Min 3 Views IMPRESSION: Degenerative changes as above. Reading Location: [id number]
--- NOTE | 2025-01-13 15:06 | RAD_ITS ---
EXAM: XR Pelvis, 1 or 2 Views CLINICAL INDICATION: RA TECHNIQUE: Frontal view of the pelvis. COMPARISON: No relevant prior studies available. FINDINGS: BONES/JOINTS: Mild degenerative changes of the hip joints, bilaterally. Moderate degenerative change pubic symphysis and sacroiliac joints, bilaterally. No acute fracture. No dislocation. SOFT TISSUES: Unremarkable. RAD/Pelvis 1 or 2 Views IMPRESSION: Degenerative changes as above. Reading Location: [id number]
--- NOTE | 2025-01-13 15:06 | RAD_ITS ---
EXAM: XR Left Hand Complete, 3 or More Views CLINICAL INDICATION: RA TECHNIQUE: Frontal, lateral and oblique views of the left hand. COMPARISON: No relevant prior studies available. FINDINGS: BONES/JOINTS: Moderate degenerative changes of the 1st carpometacarpal joint. 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 No acute fracture. No dislocation. SOFT TISSUES: Soft tissue swelling. RAD/Hand Min 3 Views IMPRESSION: Degenerative changes as above. Reading Location: [id number]
--- NOTE | 2025-01-13 15:06 | RAD_ITS ---
EXAM: XR Pelvis, 1 or 2 Views CLINICAL INDICATION: RA TECHNIQUE: Frontal view of the pelvis. COMPARISON: No relevant prior studies available. FINDINGS: BONES/JOINTS: Mild degenerative changes of the hip joints, bilaterally. Moderate degenerative change pubic symphysis and sacroiliac joints, bilaterally. No acute fracture. No dislocation. SOFT TISSUES: Unremarkable. RAD/Pelvis 1 or 2 Views IMPRESSION: Degenerative changes as above. Reading Location: [id number]
--- NOTE | 2025-01-13 15:06 | RAD_ITS ---
EXAM: XR Right Hand Complete, 3 or More Views CLINICAL INDICATION: RA TECHNIQUE: Frontal, lateral and oblique views of the right hand. COMPARISON: No relevant prior studies available. FINDINGS: BONES/JOINTS: Severe degenerative changes of the 1st metacarpal with joint. Severe degenerative changes of the D IP joints. Severe degenerative changes of the PIP joints of the 2nd and 5th digits. Severe degenerative change of the PIP joint of the 1st digit. No acute fracture. No dislocation. SOFT TISSUES: Soft tissue swelling. RAD/Hand Min 3 Views IMPRESSION: Degenerative changes as above. Reading Location: [id number]
--- NOTE | 2025-01-13 15:06 | RAD_ITS ---
EXAM: XR Right Hand Complete, 3 or More Views CLINICAL INDICATION: RA TECHNIQUE: Frontal, lateral and oblique views of the right hand. COMPARISON: No relevant prior studies available. FINDINGS: BONES/JOINTS: Severe degenerative changes of the 1st metacarpal with joint. Severe degenerative changes of the D IP joints. Severe degenerative changes of the PIP joints of the 2nd and 5th digits. Severe degenerative change of the PIP joint of the 1st digit. No acute fracture. No dislocation. SOFT TISSUES: Soft tissue swelling. RAD/Hand Min 3 Views IMPRESSION: Degenerative changes as above. Reading Location: [id number]
[2025-01-13 18:06] LABS: Hematocrit 43.6 % (37-47); Hemoglobin 14.2 g/dL (12.0-15.0); Immature Granulocytes Count 0.040 X10^3/uL (0.0-0.0); Mean Corp Hgb Conc 32.6 g/dL (32-36); Mean Corpuscular Volume 99.3 fL (81-99); Mean Platelet Vol. 12.4 fl (6.2-12.0); NRBC Flagged by Analyzer 0 % (0-5); Platelet Count 148 K/mm3 (150-450); RBC Distribution Width CV 12.4 % (11.6-14.6); RBC Distribution Width SD 45.3 fl (35.1-43.9); Red Blood Count 4.39 M/mm3 (4.2-5.4); White Blood Count 7.7 K/mm3 (4.4-11.0)
[2025-01-13 19:18] LABS: AST(SGOT) 29 U/L (<=31); Alanine Aminotransfer ALT/SGPT 22 U/L (<=34); Albumin, Serum 4.4 g/dL (3.4-4.8); Alkaline Phosphatase 71 U/L (35-104); Anion Gap 15 (5-15); BUN 13 mg/dL (4-19); BUN/Creat Ratio 13.8 RATIO (10-20); Calcium,Total 9.8 mg/dL (7.6-11.0); Carbon Dioxide 23.8 mmol/L (21.0-32.0); Chloride 102 mmol/L (98-108); Globulin 3.0 g/dL (2.2-4.2); Glucose 95 mg/dL (70-99); Hepatitis B Surface Antigen Nonreactive (Nonreactive); Hepatitis C Antibody Nonreactive (Nonreactive); Potassium 3.5 mmol/L (3.3-5.1)
[2025-01-13 19:24] LABS: CRP < 3.00 mg/L (0.0-3.0)
[2025-01-15 12:09] LABS: QNTFERON TB Mitogen Value 3.21 IU/mL (.); QNTFERON TB Nil Value 0.09 IU/mL (.); QNTFERON TB1+ Ag Value 0.09 IU/mL (.); QNTFERON TB2+ Ag Value 0.09 IU/mL (.); QNTIFERON TB Positive Criteria Negative (Negative)
== END | disposition home or self-care (01) ==
LOC: MTLAB 15:04
PROVIDERS: PCP Nurse Practitioner Acute Care; Referring Provider Internal Medicine Rheumatology; Visit Provider Internal Medicine Rheumatology
DX: G50.0 Trigeminal neuralgia (principal); M06.09 Rheumatoid arthritis without rheumatoid factor, multiple sites; Z79.899 Other long term (current) drug therapy; M79.7 Fibromyalgia
CPT/HCPCS: 36415; 72170; 73130; 80053; 85025; 85652; 86140; 86200; 86431; 86480; 86706; 86803; 87340

== ENCOUNTER 2025-01-26 07:31 | Day surgery (SDC) | payer MEDICARE, OTHER, SELFPAY ==
--- NOTE | 2025-01-08 14:28 | RAD_ITS ---
PROCEDURE: CHEST PA AND LATERAL 01/08/2025 REASON FOR EXAM: CHEST PAIN, PRE-PROCEDURAL TECHNIQUE: Procedure Code: RADCXR Modality: DX Procedure: CHEST PA AND LATERAL COMPARISON: None. FINDINGS: There is scarring in the left lung base. There is no lobar consolidation or pleural effusion. The heart size is normal. There is calcific vascular disease of the thoracic aorta. Status post multilevel ACDF of the lower cervical spine. 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 RAD/Chest PA and Lateral IMPRESSION: Scarring in the left lung base. No evidence of acute cardiopulmonary pathology . Other findings as noted. Reading Location: [id number]
[2025-01-08 14:42] LABS: Hematocrit 45.6 % (37-47); Hemoglobin 14.7 g/dL (12.0-15.0); Immature Granulocytes Count 0.140 X10^3/uL (0.0-0.0); Mean Corp Hgb Conc 32.2 g/dL (32-36); Mean Corpuscular Volume 101.1 fL (81-99); Mean Platelet Vol. 11.2 fl (6.2-12.0); NRBC Flagged by Analyzer 0 % (0-5); Platelet Count 229 K/mm3 (150-450); RBC Distribution Width CV 12.5 % (11.6-14.6); RBC Distribution Width SD 46.9 fl (35.1-43.9); Red Blood Count 4.51 M/mm3 (4.2-5.4); White Blood Count 9.1 K/mm3 (4.4-11.0)
[2025-01-08 14:56] LABS: Prothrombin Time (Protime)PT. 11.8 SECONDS (11.7-14.9)
[2025-01-08 15:13] LABS: Anion Gap 10 (5-15); BUN 18 mg/dL (4-19); BUN/Creat Ratio 20.0 RATIO (10-20); Calcium,Total 9.1 mg/dL (7.6-11.0); Carbon Dioxide 25.7 mmol/L (21.0-32.0); Chloride 105 mmol/L (98-108); Glucose 111 mg/dL (70-99); Potassium 4.0 mmol/L (3.3-5.1)
[2025-01-23 08:43] VITALS: BMI 23.6
--- NOTE | 2025-01-26 09:29 | CL.D_ITS ---
Patient Name: ADA MCKEON Study Date: 01/26/2025 Performing: Praful De León MD Ht: 64 inches 162.56 cm : 1945 Wt: 138.01 lbs 62.6 kg Age: 79 Gender: female BSA: 1.67 PROCEDURE(S) PERFORMED [id number])LHC/COR/LV CLINICAL PROFILE AND INDICATIONS Indications: Suspected CAD Heart Failure: None Stress/Imaging Stress Echocardiogram: Yes Result: IndeterminantStress Echocardiogram: Indeterminant CAD Presentations: Symptom unlikely to be ischemic. CONCLUSIONS Normal coronary arteries Normal LV size, wall motion,and systolic function RECOMMENDATIONS Aggressive medical therapy. DC atenolol and use alternative antihypertensive medication. DESCRIPTION OF PROCEDURE The patient arrived to the procedure lab. The risks and benefits of the procedure as well as a full description of our services here and current unavailability of surgical backup were fully explained to the patient and/or their significant other prior to the catheterization. The Timeout was completed, verifying the correct patient and procedure. The patient's procedural site was prepped and draped in the usual fashion. Local anesthetic was given subcutaneously to right radial region with Lidocaine 2%. Using a modified Seldinger technique, arterial access was obtained via the right radial artery, a 6Fr sheath was inserted. Right Coronary Artery selective angiography was then performed in multiple views using a 5 Fr. 4.0 Sheldon catheter. Left Coronary Artery selective angiography was performed in multiple views using a 5 Fr. 4.0 Sheldon catheter. Left Ventriculography was performed in ALEJANDRO projection using a 5 Fr. Pigtail catheter. LV to AO pullback pressures were then recorded.The arterial sheath was pulled and a TR Band was applied for hemostasis CORONARY ANGIOGRAPHY DOMINANCE: Left Dominant LEFT HEART ASSESSMENT Left Ventricular Ejection Fraction: by LV Gram 60 % Normal Left Ventricular systolic function Normal Left Ventricular systolic function LEFT MAIN: Angiographically normal LEFT ANTERIOR DESCENDING ARTERY: Angiographically normal CIRCUMFLEX ARTERY: Angiographically normal RIGHT CORONARY ARTERY: Angiographically normal COMPLICATIONS No Complications PROCEDURE MEDICATIONS Fentanyl 50 mcg IV Versed 1 mg IV Oxygen: 2 L/min via nasal cannula Baby Aspirin (81mg) 1 Tabs PO @ 01/26/2025 07:58:25 SUMMARY OF HEMODYNAMIC DATA Time AIR REST ECG 08:00:42 AO 143/60 (94) SA 09:12:33 LV 130/9, 18 09:16:45 LV 142/12, 25 09:16:56 Signed By Praful De León MD On 01/26/2025 09:28:25 Praful De León MD
== END 2025-01-26 11:10 | disposition home or self-care (01) ==
PROVIDERS: Student in an Organized Health Care Education/Training Program; PCP Nurse Practitioner Acute Care; Referring Provider Internal Medicine Cardiovascular Disease; Visit Provider Internal Medicine Cardiovascular Disease
DX: R06.09 Other forms of dyspnea (principal); J43.9 Emphysema, unspecified; K21.9 Gastro-esophageal reflux disease without esophagitis; I10 Essential (primary) hypertension; E78.5 Hyperlipidemia, unspecified; Z87.891 Personal history of nicotine dependence; R07.9 Chest pain, unspecified; R00.2 Palpitations; Z79.899 Other long term (current) drug therapy
CPT/HCPCS: 36415; 71046; 80048; 85025; 85610; 93458; 99152; 99153; Q9967; C1769; C1894

== ENCOUNTER → 2025-02-17 | Outpatient (CLI) | payer MEDICARE, OTHER, SELFPAY ==
[2025-02-17 17:43] LABS: Hematocrit 41.2 % (37-47); Hemoglobin 13.3 g/dL (12.0-15.0); Immature Granulocytes Count 0.010 X10^3/uL (0.0-0.0); Mean Corp Hgb Conc 32.3 g/dL (32-36); Mean Corpuscular Volume 98.8 fL (81-99); NRBC Flagged by Analyzer 0 % (0-5); POSITIVE COUNT YES; RBC Distribution Width CV 11.9 % (11.6-14.6); RBC Distribution Width SD 43.2 fl (35.1-43.9); Red Blood Count 4.17 M/mm3 (4.2-5.4); White Blood Count 5.3 K/mm3 (4.4-11.0)
[2025-02-17 18:12] LABS: Anion Gap 11 (5-15); BUN 14 mg/dL (4-19); BUN/Creat Ratio 13.5 RATIO (10-20); Calcium,Total 9.3 mg/dL (7.6-11.0); Carbon Dioxide 24.7 mmol/L (21.0-32.0); Chloride 105 mmol/L (98-108); Glucose 111 mg/dL (70-99); Potassium 4.0 mmol/L (3.3-5.1)
[2025-02-17 19:52] LABS: Differential Indicated SCAN CRITERIA MET
[2025-02-17 19:54] LABS: Mean Platelet Vol. 13.2 fl (6.2-12.0); Platelet Count 123 K/mm3 (150-450)
[2025-02-17 19:55] LABS: Differential Comment SCANNED
== END | disposition home or self-care (01) ==
LOC: MTLAB 14:07
PROVIDERS: PCP Nurse Practitioner Acute Care; Referring Provider Nurse Practitioner Gerontology; Visit Provider Nurse Practitioner Gerontology
DX: M79.10 Myalgia, unspecified site (principal)
CPT/HCPCS: 36415; 80048; 85025

== ENCOUNTER → 2025-03-25 | Outpatient (CLI) | payer MEDICARE, OTHER, SELFPAY ==
--- OUTSIDE RECORDS SUMMARY | 2025-03-25 12:51 | XMS RPT_ITS | CCD ---
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 Adali Alvarez MD Referring Provider Dr. Ronak Cortes MD Attending Provider [place] [employer], July Primary Care Provider Dr. Ronak Cortes MD Referring Provider RAYMUNDO SPARKS Attending Unavailable RAYMUNDO SPARKS Primary Care Unavailable RAYMUNDO SPARKS Admitting Unavailable TYRONE OCHOA Consulting Unavailable PROVIDER, UNKNOWN Consulting Unavailable PROVIDER, UNKNOWN Consulting Unavailable ADALI ALVAREZ MD Attending Unavailable ADALI ALVAREZ MD Consulting Unavailable ADALI ALVAREZ MD Primary Care Unavailable ADALI ALVAREZ MD Admitting Unavailable PROVIDER, UNKNOWN Consulting Unavailable PROVIDER, UNKNOWN Consulting Unavailable PROVIDER, UNKNOWN Consulting Unavailable Dr. Ronak Cortes MD Attending Physician [place] [employer], July Primary Care Physician Dr. Ronak Cortes MD Referring Provider Dr. Praful De León MD Attending Physician [place] [employer], July Referring Provider Terry GAINES-CZayda Attending Physician Dr. Jes Chapa MD Attending Physician Dr. Jes Chapa MD Referring Provider Dr. Praful De León MD Referring Provider SELF Referring Unavailable RO GUZMAN Attending Unavailable [place], July Primary Care Unavailable Zayda Stewart NP Referring Unavailable Terry GAINES, Zayda Attending Unavailable Ronak Cortes Attending Unavailable Ronak Cortes Referring Unavailable July Primary Care Unavailable Sarthak, Raven Attending Unavailable July Primary Care Unavailable Ronak Cortes Attending Unavailable Ronak Cortes Referring Unavailable July Primary Care Unavailable July Primary Care Unavailable Adali Alvarez Referring Unavailable Ronak Cortes Attending Unavailable July Referring Unavailable Zayda Stewart NP Attending Unavailable July Primary Care Unavailable Ronak Cortes Attending Unavailable Ronak Cortes Referring Unavailable July Primary Care Unavailable July Primary Care Unavailable Jes Chapa Attending Unavailable Jes Chapa Referring Unavailable Sarthak, Raven Attending Unavailable Sarthak, Praful Referring Unavailable July Primary Care Unavailable Allergies Allergy Classification Reported Allergen(s) Allergy Type Date of Onset Reaction(s) Facility (1 source) codeine drug allergy 08-02-19 16 nausea [facility] Work Phone: (9 sources) Latex; Translations: [LATEX] allergy to substance 02-28-20 05 rash, hives [facility] Work Phone: (1 source) levoFLOXacin drug allergy 04-03-20 17 nausea, muscles ache [facility] Work Phone: (1 source) sulfacetamide drug allergy 08-02-19 16 rash [facility] Work Phone: (6 sources) Codeine; Translations: [CODEINE] Drug Allergy 12-30-19 05 palpitations [facility] (6 sources) levoFLOXacin; Translations: [LEVOFLOXACIN] Drug Allergy 09-30-19 15 myalgias [facility] (5 sources) oxyCODONE Drug Allergy 11-29-19 25 Nausea/Vom/Diar tbaitha [facility] (6 sources) Penicillins; Translations: [PENICILLINS] Allergy to substance 09-16-19 04 Other [facility] (5 sources) Sulfonamides (Antibiotic) Allergy to substance 11-29-19 25 [facility] (1 source) Codeine Drug Allergy [facility] Rep[facility] (1 source) levoFLOXacin Drug Allergy [facility] (1 source) Sulfonamides (Antibiotic) Drug allergy (disorder) [facility] (1 source) HYDROcodone; Translations: [HYDROCODONE] Drug Allergy 09-30-19 [facility] (1 source) Sertraline; Translations: [SERTRALINE] Drug Allergy 12-07-19 [facility] (1 source) traZODone; Translations: [TRAZODONE] Drug Allergy 12-31-19 [facility] (1 source) Codeine Drug Allergy 01-09-20 [facility] (1 source) levoFLOXacin Drug Allergy 01-09-20 [facility] Rep[facility] (1 source) oxyCODONE Drug Allergy 01-09-20 [facility] (1 source) Penicillins Drug allergy (disorder) 01-09-20 [facility] (1 source) Sulfonamides (Antibiotic) Drug allergy (disorder) 01-09-20 [facility] Repository Medications Current Medications Medication Drug Class(es) Dates Sig (Normalized) Sig (Original) acetaminophen 500 mg oral capsule (6 sources) Start: 11-28-2024 take 1 capsule by mouth every six hours as needed for pain Acetaminophen 500 mg capsule Active 500 mg PO EVERY 6 HOURS as needed for fever or pain November 28, 2024 12:00am Complies with drug therapy Start: 04-03-2017 TYLENOL EXTRA STRENGTH 500 MG TABS take 2 tablets every 4-6 hours as needed ACETAMINOPHEN [id number] 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 atorvastatin 20 mg oral tablet (6 sources) HMG-CoA Reductase Inhibitor Start: 09-26-2018 take 1 tablet by mouth once daily Atorvastatin (Lipitor) 20 mg tablet Active 20 mg PO DAILY September 26, 2018 12:00am Complies with drug therapy Start: 08-02-2015 ATORVASTATIN C ALCIUM 20 MG TABS take 1 tablet once daily ATORVASTATIN CALCIUM [id number] 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 docusate sodium 100 mg oral capsule (5 sources) Start: 11-28-2024 take 1 capsule by mouth once daily Docusate Sodium 100 mg capsule Active 100 mg PO daily November 28, 2024 12:00am Complies with drug therapy LORazepam 0.5 mg oral tablet (6 sources) Benzodiazepine Start: 09-26-2018 take 1 tablet by mouth at bedtime as needed for anxiety Lorazepam 0.5 mg tablet Active 0.5 mg PO AT BEDTIME as needed for Anxiety September 26, 2018 12:00am Complies with drug therapy Start: 08-02-2015 LORAZEPAM 0.5 MG TABS take 1 tablet as needed as directed LORAZEPAM [id number] Beulah Rosales LPN losartan potassium 50 mg oral tablet (2 sources) Angiotensin 2 Receptor [place] Start: 01-27-2025 take 1 tablet by mouth once daily Start: 01-26-2025 End: 01-27-2025 take 1 tablet by mouth once daily Losartan (Cozaar) 50 mg tablet Discontinued 50 mg PO DAILY January 26, 2025 12:00am January 27, 2025 10:39am omeprazole 20 mg delayed release oral capsule (11 sources) Proton Pump Inhibitor Start: 11-28-2024 take 1 capsule by mouth once daily Omeprazole 20 mg capsule,delayed release(DR/EC) Active 20 mg PO DAILY November 28, 2024 10:56am Complies with drug therapy Start: 09-26-2018 End: 11-28-2024 take 2 capsules by mouth once daily Omeprazole 20 mg capsule,delayed release(DR/EC) Discontinued 40 mg PO DAILY September 26, 2018 12:00am November 28, 2024 10:58am Start: 04-03-2017 OMEPRAZOLE 20 MG CPDR take 1 capsule once daily OMEPRAZOLE [id number] Beulah Rosales LPN zolpidem tartrate 10 mg oral tablet (6 sources) gamma-Aminobutyric Acid-ergic Agonist Start: 09-26-2018 take 1 tablet by mouth at bedtime as needed Zolpidem 10 mg tablet Active 10 mg PO AT BEDTIME as needed for insomnia 0 September 26, 2018 12:00am Complies with drug therapy Start: 08-02-2015 ZOLPIDEM TARTR ATE 5 MG TABS take 1 tablet once daily ZOLPIDEM TARTRATE [id number] Beulah Rosales LPN Completed/Discontinued Medications Medication Drug Class(es) Dates Sig (Normalized) Sig (Original) acetaminophen 325 mg / oxyCODONE hydrochloride 5 mg oral tablet (6 sources) Opioid Agonist Start: 11-28-2018 End: 12-07-2018 Oxycodone-Acetamino phen 1 TABLET tablet Discontinued 1 - 2 {tbl} PO EVERY 4 HOURS NEEDED as needed for Pain 20 7 0 November 28, 2018 December 04, 2018 12:00am December 07, 2018 12:08am Ventral hernia without obstruction or gangrene Start: 08-28-2017 PERCOCET 5-325 MG TABS one tablet every 6 hours as needed for pain OXYCODONE-ACETAMINOPHEN [id number] Ty Hong MD [id number] 200 actuat albuterol 0.09 mg/actuat metered dose inhaler (5 sources) beta2-Adrenergic Agonist Start: 12-25-2019 End: 11-28-2024 Albuterol Sulfate 90 mcg/actuation HFA aerosol inhaler Discontinued 2 NMA INHALATION Q4H as needed for shortness of breath or wheezing 8.5 3 December 25, 2019 12:00am November 28, 2024 10:57am administer with spacer aspirin 81 mg oral strip (1 source) Nonsteroidal Anti-inflammatory Drug Start: 04-05-2017 ADULT ASPIRIN REG IMEN 81 MG TBEC take 1 tablet once daily ASPIRIN [id number] Beulah Rosales LPN atenolol 25 mg oral tablet (14 sources) beta-Adrenergic [place] Start: 01-02-2025 End: 01-26-2025 Atenolol 25 mg tablet Discontinued 12.5 mg PO TWICE A DAY 180 3 January 02, 2025 3:46pm January 26, 2025 9:57am Start: 11-28-2024 End: 01-02-2025 Atenolol 25 mg tablet Discon tinued 12.5 mg PO daily November 28, 2024 12:00am January 02, 2025 3:50pm Start: 09-26-2018 End: 11-28-2024 take 1 tablet by mouth once daily Atenolol 50 mg tablet Discontinued 50 mg PO DAILY September 26, 2018 12:00am November 28, 2024 10:55am Start: 08-02-2015 ATENOLOL 50 MG TABS take 1 tablet once daily ATENOLOL [id number] Beulah Rosales LPN calcium polycarbophil 625 mg oral tablet (6 sources) Start: 11-25-2018 End: 04-05-2021 take 1 tablet by mouth once daily Calcium Polycarbophil 625 MG tablet Discontinued 625 mg PO DAILY November 25, 2018 12:00am April 05, 2021 12:16pm Start: 04-03-2017 FIBERCON TABS take 1 tablet once daily as needed CALCIUM POLYCARBOPHIL TABS [id number] Beulah Rosales LPN celecoxib 100 mg oral capsule (11 sources) Nonsteroidal Anti-inflammatory Drug Start: 04-05-2021 End: 01-08-2025 take 1 capsule by mouth once daily Celecoxib (Celebrex) 100 mg capsule Discontinued 100 mg PO DAILY April 05, 2021 1:00am January 08, 2025 2:39pm Start: 09-26-2018 End: 12-25-2019 take 1 capsule by mouth once daily Celecoxib (Celebrex) 200 mg capsule Discontinued 200 mg PO DAILY September 26, 2018 12:00am December 25, 2019 11:04am Start: 09-09-2015 CELEBREX 200 M G CAPS take 1 capsule once daily CELECOXIB [id number] Beulah Rosales LPN 1 ml certolizumab pegol 200 mg/ml prefilled syringe (5 sources) Start: 12-25-2019 End: 04-05-2021 Certolizumab Pegol (Cimzia) 400 mg/2 mL (200 mg/mL x 2) syringe kit Discontinued 200 mg SC every 2 weeks December 25, 2019 12:00am April 05, 2021 12:16pm GLUCOSAMINE-CHONDR OITIN TABS (1 source) Start: 04-03-2017 GLUCOSAMINE-CHONDR OITIN TABS take 1 tablet once daily GLUCOSAMINE-CHONDR OITIN TABS [id number] Beulah Rosales LPN fluticasone propionate 0.05 mg/actuat metered dose nasal spray (5 sources) Corticosteroid Start: 04-05-2021 End: 11-28-2024 take 50 ug nasal route once daily Fluticasone Propionate (Flonase Allergy Relief) 50 mcg/actuation spray,suspension Discontinued 2 NMA INTRANASAL daily 16 April 05, 2021 1:00am November 28, 2024 10:57am administer into each nostril gabapentin 300 mg oral capsule (5 sources) Anti-epileptic Agent Start: 05-09-2019 End: 12-25-2019 take 1 capsule by mouth three times daily Gabapentin (Neurontin) 300 mg capsule Discontinued 300 mg PO THREE TIMES A DAY 270 0 May 09, 2019 1:00am December 25, 2019 11:03am Ebjqgchx-Eicu-Teo9 -C-Jorge Luis-Bosw 750-625-30 mg tablet (5 sources) Start: 09-26-2018 End: 04-05-2021 Lrwovjmi-Scrx-Ykf2 -C-Jorge Luis-Bosw 750-625-30 mg tablet Discontinued 2 {tbl} PO DAILY September 26, 2018 12:00am April 05, 2021 12:16pm Multivitamin tablet (5 sources) Start: 04-05-2021 End: 11-28-2024 Multivitamin tablet Discontinued 1 {tbl} PO DAILY April 05, 2021 1:00am November 28, 2024 10:57am omega-3 acid ethyl esters (assisted) 1000 mg oral capsule (5 sources) Start: 01-14-2019 End: 11-28-2024 [place] 0-Dca-Kif-Fish Oil (Fish Oil) 1,000 mg (120 mg-180 mg) capsule Discontinued 1 NMA PO DAILY January 14, 2019 12:00am November 28, 2024 10:56am vitamin b6 100 mg oral tablet (1 source) Start: 04-03-2017 B-6 100 MG TABS take 1 tablet once daily PYRIDOXINE HCL [id number] Beulah Rosales LPN Problems Active Problems Problem Classification Problem Date Documented Date Episodic/Chronic Abdominal hernia (5 sources) Hernia of anterior abdominal wall; Translations: [Ventral hernia without obstruction or gangrene] 11-28-2018 Episodic Anxiety disorders (5 sources) Anxiety; Translations: [Anxiety disorder, unspecified] 11-21-2024 Chronic Asthma (5 sources) Asthma; Translations: [Unspecified asthma, uncomplicated] 04-05-2021 Chronic Cardiac dysrhythmias (12 sources) Palpitations; Translations: [Palpitations] Onset: 01-08-2025 11-28-2024 Episodic Chronic obstructive pulmonary disease and bronchiectasis (10 sources) Pulmonary emphysema; Translations: [Emphysema, unspecified] 11-21-2024 Chronic Diseases of white blood cells (1 source) Decreased white blood cell count, unspecified; Translations: [Decreased white blood cell count, unspecified] Onset: 09-29-2024 Chronic Disorders of lipid metabolism (6 sources) Hyperlipidemia; Translations: [Hyperlipidemia, unspecified] Onset: 09-29-2024 11-21-2024 Chronic Esophageal disorders (5 sources) Gastroesophageal reflux disease; Translations: [Gastro-esophageal reflux disease without esophagitis] 11-21-2024 Chronic Essential hypertension (8 sources) Hypertensive disorder; Translations: [Essential (primary) hypertension] 11-21-2024 Chronic Nonspecific chest pain (14 sources) Chest pain; Translations: [Chest pain, unspecified] Onset: 11-28-2024 11-28-2024 Episodic Nutritional deficiencies (1 source) Vitamin D deficiency, unspecified; Translations: [Vitamin D deficiency, unspecified] Onset: 09-29-2024 Chronic Osteoarthritis (5 sources) Osteoarthritis; Translations: [Unspecified osteoarthritis, unspecified site] 11-21-2024 Chronic Other and unspecified benign neoplasm (5 sources) Lipoma (clinical); Translations: [Benign lipomatous neoplasm, unspecified] 01-14-2019 Episodic Other bone disease and musculoskeletal deformities (5 sources) Osteopenia; Translations: [Other specified disorders of bone density and structure, unspecified site] 11-21-2024 Episodic Other congenital anomalies (1 source) Congenital hypoplasia of breast; 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] Onset: 04-05-2017 04-05-2017 Chronic Other hereditary and degenerative nervous system conditions (5 sources) Restless legs; Translations: [Restless legs syndrome] 11-21-2024 Chronic Other hereditary and degenerative nervous system conditions (1 source) Restless legs syndrome; Translations: [Restless legs syndrome] Onset: 09-29-2024 Chronic Other lower respiratory disease (13 sources) Dyspnea; Translations: [Shortness of breath] 02-05-2020 Episodic Other lower respiratory disease (1 source) Other forms of dyspnea; Translations: [Other forms of dyspnea] Onset: 01-28-2025 Episodic Other lower respiratory disease (1 source) Shortness of breath; Translations: [Shortness of breath] Onset: 01-15-2025 Episodic Other nervous system disorders (2 sources) Trigeminal neuralgia; Translations: [Left-sided trigeminal neuralgia] Onset: 02-06-2025 Episodic Other screening for suspected conditions (not mental disorders or infectious disease) (3 sources) Echocardiogram abnormal; Translations: [Abnormal result of other cardiovascular function study] 01-05-2025 Episodic Past or Other Problems Problem Classification Problem Date Documented Da te Episodic/Chronic Complication of device; implant or graft (2 sources) Capsular breast contracture of breast implant; Translations: [Rupture of breast implant] Onset: 04-05-2017 04-05-2017 Episodic Other skin disorders (1 source) Hypertrophic scar; Translations: [Hypertrophic scar] Onset: 09-09-2015 09-09-2015 Episodic Unclassified (1 source) Problem Results Test Name Value Interpretation Reference Range Facility Basic Metabolic Profile (BMP )on 02-17-2025 BUN/CRE 13.5 RATIO Normal 10-20 [facility] Comment on above: Performed By: #### L 500.2500, L100.0100 ####[facility] [address] [place], [address] Calcium [Mass/Vol] 9.3 mg/dL Normal 7.6-11.0 [facility] Comment on above: Performed By: #### L 500.2500, L100.0100 ####[facility] [address] [place], [address] Chloride [Moles/Vol] 105 mmol/L Normal 98-108 [facility] Comment on above: Performed By: #### L 500.2500, L100.0100 ####[facility] [address] [place], [address] CO2 [Moles/Vol] 24.7 mmol/L Normal 21.0-32.0 [facility] Comment on above: Performed By: #### L 500.2500, L100.0100 ####[facility] [address] [place], [address] Creatinine [Mass/Vol] 1.05 mg/dL Normal 0.70-1.20 [facility] Comment on above: Performed By: #### L 500.2500, L100.0100 ####[facility] [address] [place], [address] GAP 11 Normal 5-15 [facility] Comment on above: Performed By: #### L 500.2500, L100.0100 ####[facility] [address] [place], [address] GFR/1.73 sq M.predicted among non-blacks MDRD (S/P/Bld) [Vol rate/Area] 54 mL/min/{1.73_m2} Low >60 [facility] Comment on above: Result Comment: mL/m in/1.73m2 CKD-EPI Creatinine Equation (2020) Performed By: #### L 500.2500, L100.0100 ####[facility] [address] [place], [address] Glucose [Mass/Vol] 111 mg/dL High 70-99 [facility] Comment on above: Performed By: #### L 500.2500, L100.0100 ####[facility] [address] [place], [address] Potassium [Moles/Vol] 4.0 mmol/L Normal 3.3-5.1 [facility] Comment on above: Performed By: #### L 500.2500, L100.0100 ####[facility] [address] [place], [address] Sodium [Moles/Vol] 141 mmol/L Normal 133-145 [facility] Comment on above: Performed By: #### L 500.2500, L100.0100 ####[facility] [address] [place], [address] Urea nitrogen [Mass/Vol] 14 mg/dL Normal 4-19 [facility] Comment on above: Performed By: #### L 500.2500, L100.0100 ####[facility] [address] [place], [address] CBC W/Diff, Automatedon 11-0 PLT EST SLT DEC Normal ADEQ [facility] Comment on above: Performed By: #### L 500.2500, L100.0100 ####[facility] [address] [place], [address] SMEAR COMMENT SCANNED Normal [facility] Comment on above: Performed By: #### L 500.2500, L100.0100 ####[facility] [address] [place], [address] Platelet mean volume (Bld) [Entitic vol] 13.2 fL High 6.2-12.0 [facility] Comment on above: Performed By: #### L 500.2500, L100.0100 ####[facility] [address] [place], [address] Platelets (Bld) [#/Vol] 123 10*3/uL Low 150-450 [facility] Comment on above: Performed By: #### L 500.2500, L100.0100 ####[facility] [address] [place], [address] CNOVon 02-12-2025 CNOV Office Visit ([facility] -------- KRISTINA MCKEON ([id number]) 1945 F Date Time Provider Department 02/12/25 10:00 AM RO GUZMAN [facility] During your visit today, we recorded the following information about you: Temperature Pulse Blood pressure Weight 96.8 degrees 85/minute 105/63 62.6 kg Height 1.626 m Ro Guzman MD 02/12/2025 10:27 AM Signed HEADACHE / FACIAL PAIN MEDICINE NEW EVALUATION February 12, 2025 10:00 AM Trigeminal Neuralgia HPI Onset: - Pt reports October 2024 she had pain in her left V1/2 region. Rarely would get a tinge on the right V1 as well, but 95% was side-locked to the left. Side: left Distribution: V2 and V1 - V2 most prominent Any pain on the side or back of head: No Character: aching Duration: she would have the pain nearly constantly at the time, but pain much improved with gabapentin. Pain-free between episodes: No Triggers: none Sensory abnormalities: No Initial benefit from Tegretol/Trileptal: she has not tried this. History of MS: No History of Lyme disease: No History of shingles facial rash: No History of dental/oral surgery: No History of facial/plastic surgery: No Type of Trigeminal Neuralgia: classical trigeminal neuralgia TN type notes: Type II TN vs atypical facial pain. Imaging: no MRI-Brain. PAST MEDICAL HISTORY Diagnosis Date Acute gastritis Acute gastritis without mention of hemorrhage Anxiety state, unspecified Diaphragmatic hernia without mention of obstruction or gangrene Hiatal hernia Diarrhea Internal hemorrhoids without mention of complication Mitral valve disorders(424.0) Osteoporosis, unspecified Other and unspecified hyperlipidemia Personal history of colonic polyps Colon polyps Unspecified constipation Constipation Unspecified hemorrhoids without mention of complication Hemorrhoids PAST SURGICAL HISTORY Procedure Laterality Date ARTHROSCOPY, TMJ, SURGICAL 01/2009 COLONOSCOPY FLX DX W/COLLJ SPEC WHEN PFRMD 10/22/03 Colonoscopy COLONOSCOPY W/BIOPSY SINGLE/MULTIPLE 05/29/07 DILATION AND CURETTAGE DXAND/THER NONOBSTETRIC Dilation AND curettage EGD TRANSORAL BIOPSY SINGLE/MULTIPLE 05/29/07 ESOPHAGOGASTRODUODENOSCO PY TRANSORAL DIAGNOSTIC EGD PAST SURGICAL HISTORY OF breast implants PAST SURGICAL HISTORY OF endometrial bx was negative PAST SURGICAL HISTORY OF 09/01/14 facelift - [place] PAST SURGICAL HISTORY OF 2012 cervical discectomy Current Outpatient Medications Medication Sig gabapentin (NEURONTIN) 100 mg capsule Take 100 mg by mouth two times a day. losartan (COZAAR) 50 mg tablet Take 50 mg by mouth once daily. celecoxib (CELEBREX) 200 mg capsule Take 1 capsule by mouth once daily. DULoxetine (CYMBALTA) 30 mg capsule Take 1 capsule by mouth once daily. LORazepam (ATIVAN) 0.5 mg tab Take 1 tablet by mouth three times daily as needed. atorvastatin (LIPITOR) 10 mg ORAL tablet Take 1 tablet by mouth once daily. FIBER TAB Take one(1) tablet daily as necessary No current facility-administered medications for this visit. ALLERGIES Allergen Reactions Codeine Hydrocodone GI Upset, Vomiting Latex Rash Levaquin [Levofloxa* Other: See Comments Muscle aches Penicillins Rash Sertraline tachycardia,nausea Trazodone severe head congestion and dryness of mouth, increased heart rate FAMILY HISTORY Problem Relation Age of Onset Heart Father Coronary Artery Disease Mother Arthritis Mother SOCIAL HISTORY[1] PHYSICAL EXAMINATION 02/12/25 0948 BP: 105/63 BP Site: Left Arm Pulse: 85 Temp: 36 ?C (96.8 ?F) TempSrc: Temporal SpO2: 100% Weight: 62.6 kg (138 lb) Height: 162.6 cm (5' 4) General appearance: Well appearing, alert, in no acute distress, well-hydrated, well nourished. Head: Normocephalic, no masses, lesions, tenderness or abnormalities Eyes: Anicteric sclera. Extraocular movements are intact. Neuro: Negative findings: speech normal, mental status intact, cranial nerves VII intact, no focal findings. MRI Head/Brain - Last 2 Impressions No resulted procedures found. Kristina was seen today for trigeminal neuralgia. Diagnoses and all orders for this visit: Left-sided trigeminal neuralgia - MRI BRAIN WO/W IVCON; Future - iv contrast (will be provided with radiology test); MRI Brain Inject, intravenously, once for 1 dose.No IV access, insert saline lock prior to beginning of sedation, infusion, injection of imaging exam.Discontinue saline lock post exam. If Pt. has a central line or IVAD, may access for administration according to line specific nursing protocol.Once exam is complete flush line and de-access according to line specific nursing protocol in the MR contrast administration guidelines link - MRA BRAIN WO IVCON; Future - gabapentin (NEURONTIN) 100 mg capsule; Take 1 capsule by mouth two times a day for 180 days. Kristina Pepe (more content not included)... 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 CONCLUSIONS Normal coronary arteries Normal LV size, wall motion,and systolic function RECOMMENDATIONS Aggressive medical therapy. DC atenolol and use alternative antihypertensive medication. DESCRIPTION OF PROCEDURE The patient arrived to the procedure lab. The risks and benefits of the procedure as well as a full description of our services here and current unavailability of surgical backup were fully explained to the patient and/or their significant other prior to the catheterization. The Timeout was completed, verifying the correct patient and procedure. The patient's procedural site was prepped and draped in the usual fashion. Local anesthetic was given subcutaneously to right radial region with Lidocaine 2%. Using a modified Seldinger technique, arterial access was obtained via the right radial artery, a 6Fr sheath was inserted. Right Coronary Artery selective angiography was then performed in multiple views using a 5 Fr. 4.0 Vendor catheter. Left Coronary Artery selective angiography was performed in multiple views using a 5 Fr. 4.0 Vendor catheter. Left Ventriculography was performed in ALEJANDRO projection using a 5 Fr. Pigtail catheter. LV to AO pullback pressures were then recorded.The arterial sheath was pulled and a TR Band was applied for hemostasis CORONARY ANGIOGRAPHY DOMINANCE: Left Dominant LEFT HEART ASSESSMENT Left Ventricular Ejection Fraction: by LV Gram 60 % Normal Left Ventricular systolic function Normal Left Ventricular systolic function LEFT MAIN: Angiographically normal LEFT ANTERIOR DESCENDING ARTERY: Angiographically normal CIRCUMFLEX ARTERY: Angiographically normal RIGHT CORONARY ARTERY: Angiographically normal COMPLICATIONS No Complications PROCEDURE MEDICATIONS Fentanyl 50 mcg IV Versed 1 mg IV Oxygen: 2 L/min via nasal cannula Baby Aspirin (81mg) 1 Tabs PO @ 01/26/2025 07:58:25 SUMMARY OF HEMODYNAMIC DATA Time AIR REST ECG 08:00:42 AO 143/60 (94) SA 09:12:33 LV 130/9, 18 09:16:45 LV 142/12, 25 09:16:56 Signed By Praful De León MD On 01/26/2025 09:28:25 Praful De León MD 01/26/25928 Date Praful Flores Signature: Date (if indicated) CC: July [employer]-C Otilia; Dr. Praful De León MD Date Dictated: 01/26/25899 Date Transcribed: 01/26/25927 Independent Film Maker: CO Signed Normal [facility] Cardiac catheterization repo rtOrdered By: Praful De León on 01-26-2025 Cardiac catheterization study [facility] Imaging Services [address] [place] [address] Cardiac Cath Diagnostic MR#: [id number] Acct: [id number] Name: KRISTINA MCKEON Rep #:[id number] : 1945 79 From: Praful De León MD PCP: Otilia,July [employer]-C Status:REG SDC Patient Name: KRISTINA MCKEON Study Date: 01/26/2025 Performing: Praful De León MD Ht: 64 inches 162.56 cm : 1945 Wt: 138.01 lbs 62.6 kg Age: 79 Gender: female BSA: 1.67 PROCEDURE(S) PERFORMED DC01-([id number])LHC/COR/LV CLINICAL PROFILE AND INDICATIONS Indications: Suspected CAD Heart Failure: None Stress/Imaging Stress Echocardiogram: Yes Result: IndeterminantStress Echocardiogram: Indeterminant CAD Presentations: Symptom unlikely to be ischemic. CONCLUSIONS Normal coronary arteries Normal LV size, wall motion,and systolic function RECOMMENDATIONS Aggressive medical therapy. DC atenolol and use alternative antihypertensive medication. DESCRIPTION OF PROCEDURE The patient arrived to the procedure lab. The risks and benefits of the procedure as well as a full description of our services here and current unavailability of surgical backup were fully explained to the patient and/or their significant other prior to the catheterization. The Timeout was completed, verifying the correct patient and procedure. The patient's procedural site was prepped and draped in the usual fashion. Local anesthetic was given subcutaneously to right radial region with Lidocaine 2%. Using a modified Seldinger technique, arterial access was obtained via the right radial artery, a 6Fr sheath was inserted. Right Coronary Artery selective angiography was then performed in multiple views using a 5 Fr. 4.0 Vendor catheter. Left Coronary Artery selective angiography was performed in multiple views using a 5 Fr. 4.0 Vendor catheter. Left Ventriculography was performed in LAEJANDRO projection using a 5 Fr. Pigtail catheter. LV to AO pullback pressures were then recorded.The arterial sheath was pulled and a TR Band was applied for hemostasis CORONARY ANGIOGRAPHY DOMINANCE: Left Dominant LEFT HEART ASSESSMENT Left Ventricular Ejection Fraction: by LV Gram 60 % Normal Left Ventricular systolic function Normal Left Ventricular systolic function LEFT MAIN: Angiographically normal LEFT ANTERIOR DESCENDING ARTERY: Angiographically normal CIRCUMFLEX ARTERY: Angiographically normal RIGHT CORONARY ARTERY: Angiographically normal COMPLICATIONS No Complications PROCEDURE MEDICATIONS Fentanyl 50 mcg IV Versed 1 mg IV Oxygen: 2 L/min via nasal cannula Baby Aspirin (81mg) 1 Tabs PO @ 01/26/2025 07:58:25 SUMMARY OF HEMODYNAMIC DATA Time AIR REST ECG 08:00:42 AO 143/60 (94) SA 09:12:33 LV 130/9, 18 09:16:45 LV 142/12, 25 09:16:56 Signed By Praful De León MD On 01/26/2025 09:28:25 Praful De León MD 10/13/25 0929 Date _ Praful Flores Signature: Date (if indicated) CC: July EDER-[facility]; Dr. Praful De León MD ~ Date Dictated: 01/26/25899 Date Transcribed: 01/26/25927 Independent Film Maker: CO Signed [facility] Work Phone: CCP IgG Antibodieson 025 CCP IgG Ab. 24 units High 0-19 [facility] Comment on above: Result Comment: Nega tive <20 Weak positive 20 - 39 Moderate positive 40 - 59 Strong positive >59 Performed at: [address] [id number] Insurance Licensing Supervisor: Jun Jackson PhD, Phone: [phone] Performed By: #### L 501.6710, L3890.6202, L100.0100, L4600.0100, L101.9900, L3890.6301, L3890.6102, L3400.8000, L500.4050, L505.7010 ####[facility] [address] [place], [address] Quantiferon TB-Gold+on 01-15 QFT MITOGEN SHO 3.21 IU/mL Normal . [facility] Comment on above: Performed By: #### L 501.6710, L3890.6202, L100.0100, L4600.0100, L101.9900, L3890.6301, L3890.6102, L3400.8000, L500.4050, L505.7010 ####[facility] [address] [place], [address] QFT NIL VALUE 0.09 IU/mL Normal . [facility] Comment on above: Performed By: #### L 501.6710, L3890.6202, L100.0100, L4600.0100, L101.9900, L3890.6301, L3890.6102, L3400.8000, L500.4050, L505.7010 ####[facility] [address] [place], [address] QFT TB GOLD+ Comment Normal . [facility] Comment on above: Result Comment: Agustin tiFERON-TB Gold Plus is a qualitative indirect test for M tuberculosis infection (including disease) and is intended for use in conjunction with risk assessment, radiography, and other medical and diagnostic evaluations. The QuantiFERON-TB Gold Plus result is determined by subtracting the Nil value from either TB antigen (Ag) value. The Mitogen tube serves as a control for the test. Performed By: #### L 501.6710, L3890.6202, L100.0100, L4600.0100, L101.9900, L3890.6301, L3890.6102, L3400.8000, L500.4050, L505.7010 ####[facility] [address] [place], [address] QFT TB POS CRIT Negative Normal Negative [facility] Comment on above: Result Comment: No r esponse to M tuberculosis antigens detected. Infection with M tuberculosis is unlikely, but high risk individuals should be considered for additional testing (ATS/IDSA/CDC Clinical Practice Guidelines, 2017). The reference range is an Antigen minus Nil result of <0.35 IU/mL. The specimen received for QuantiFERON testing was incubated by the ordering institution. Specific procedures outlined in our Directory of Services and in the package insert for the QuantiFERON Gold (In Tube) test must be followed to enable for proper stimulation of cells for the production of interferon gamma. Chemiluminescence immunoassay methodology Performed By: #### L 501.6710, L3890.6202, L100.0100, L4600.0100, L101.9900, L3890.6301, L3890.6102, L3400.8000, L500.4050, L505.7010 ####[facility] [address] [place], [address] QFT TB1+ AG SHO 0.09 IU/mL Normal . [facility] Comment on above: Performed By: #### L 501.6710, L3890.6202, L100.0100, L4600.0100, L101.9900, L3890.6301, L3890.6102, L3400.8000, L500.4050, L505.7010 ####[facility] [address] [place], [place], [phone] QFT TB2+ AG SHO 0.09 IU/mL Normal . [facility] Comment on above: Performed By: #### L 501.6710, L3890.6202, L100.0100, L4600.0100, L101.9900, L3890.6301, L3890.6102, L3400.8000, L500.4050, L505.7010 ####[facility] [address] [facility] [address] [place], [place], [phone] Absolute lymphocyte countOrd ered By: Jes Chapa on 01-13-2025 Lymphocytes Auto (Unsp spec) [#/Vol] 1.28 10*3/uL 0.83-4.51 [facility] Absolute neutrophil countOrd ered By: Jes Chapa on 01-13-2025 Neutrophils (Bld) [#/Vol] 5.7 10*3/uL 2.0-7.7 [facility] Anion gap in Serum or Plasma Ordered By: Jes Chapa on 01-13-2025 Anion gap [Moles/Vol] 15 mmol/L 5-15 [facility] Automated lymphocyte count a s percentage of total leukocytesOrdered By: Jes Chapa on 01-13-2025 Lymphocytes/100 WBC Auto (Unsp spec) 16.6 % Low 19-41 [facility] BUN/creatinine ratioOrdered By: Jes Chapa on 01-13-2025 Urea nitrogen/Creatinine [Mass ratio] 13.8 mg/mg 10- [facility] Basophil percentageOrdered B y: Jes Chapa on 01-13-2025 Basophils/100 WBC (Bld) 0.6 % 0-1 [facility] Bilirubin, totalOrdered By: Jes Chapa on 01-13-2025 Bilirubin [Mass/Vol] 0.62 mg/dL 0.00-1.30 [facility] CBC W/Diff, Automatedon 12-17 Absolute Lymph 1.28 X10 3/uL Normal 0.83-4.51 [facility] Comment on above: Performed By: #### L 501.6710, L3890.6202, L100.0100, L4600.0100, L101.9900, L3890.6301, L3890.6102, L3400.8000, L500.4050, L505.7010 ####[facility] [address] [place], [address] Absolute Neut 5.7 X10 3/uL Normal 2.0-7.7 [facility] Comment on above: Performed By: #### L 501.6710, L3890.6202, L100.0100, L4600.0100, L101.9900, L3890.6301, L3890.6102, L3400.8000, L500.4050, L505.7010 ####[facility] [address] [place], [address] Basophils/100 WBC (Bld) 0.6 % Normal 0-1 [facility] Comment on above: Performed By: #### L 501.6710, L3890.6202, L100.0100, L4600.0100, L101.9900, L3890.6301, L3890.6102, L3400.8000, L500.4050, L505.7010 ####[facility] [address] [place], [address] Eosinophils/100 WBC (Bld) 1.2 % Normal 0-5 [facility] Comment on above: Performed By: #### L 501.6710, L3890.6202, L100.0100, L4600.0100, L101.9900, L3890.6301, L3890.6102, L3400.8000, L500.4050, L505.7010 ####[facility] [address] [place], [place], [phone] Erythrocyte distribution width (RBC) [Ratio] 12.4 % Normal 11.6-14.6 [facility] Comment on above: Performed By: #### L 501.6710, L3890.6202, L100.0100, L4600.0100, L101.9900, L3890.6301, L3890.6102, L3400.8000, L500.4050, L505.7010 ####[facility] [address] [place], [phone] Hematocrit (Bld) [Volume fraction] 43.6 % Normal 37-47 [facility] Comment on above: Performed By: #### L 501.6710, L3890.6202, L100.0100, L4600.0100, L101.9900, L3890.6301, L3890.6102, L3400.8000, L500.4050, L505.7010 ####[facility] [address] [place], [place], [phone] Hemoglobin (Bld) [Mass/Vol] 14.2 g/dL Normal 12.0-15.0 [facility] Comment on above: Performed By: #### L 501.6710, L3890.6202, L100.0100, L4600.0100, L101.9900, L3890.6301, L3890.6102, L3400.8000, L500.4050, L505.7010 ####[facility] [address] [place], [phone] IG% 0.500 Normal 0.0-0.9 [facility] Comment on above: Result Comment: IG% - Immature Granulocytes (promyelocytes, myelocytes and metamyelocytes) > 1% indicates that a LEFT SHIFT is Present. Performed By: #### L 501.6710, L3890.6202, L100.0100, L4600.0100, L101.9900, L3890.6301, L3890.6102, L3400.8000, L500.4050, L505.7010 ####[facility] [address] [facility] [place], [address] Lymphocytes/100 WBC (Bld) 16.6 % Low 19-41 [facility] Comment on above: Performed By: #### L 501.6710, L3890.6202, L100.0100, L4600.0100, L101.9900, L3890.6301, L3890.6102, L3400.8000, L500.4050, L505.7010 ####[facility] [address] [facility] [place], [address] MCH (RBC) [Entitic mass] 32.3 pg High 27.0-32.0 [facility] Comment on above: Performed By: #### L 501.6710, L3890.6202, L100.0100, L4600.0100, L101.9900, L3890.6301, L3890.6102, L3400.8000, L500.4050, L505.7010 ####[facility] [address] [facility] [place], [address] MCHC (RBC) [Mass/Vol] 32.6 g/dL Normal 32-36 [facility] Comment on above: Performed By: #### L 501.6710, L3890.6202, L100.0100, L4600.0100, L101.9900, L3890.6301, L3890.6102, L3400.8000, L500.4050, L505.7010 ####[facility] [address] [place], [address] MCV (RBC) [Entitic vol] 99.3 fL High 81-99 [facility] Comment on above: Performed By: #### L 501.6710, L3890.6202, L100.0100, L4600.0100, L101.9900, L3890.6301, L3890.6102, L3400.8000, L500.4050, L505.7010 ####[facility] [address] [place], [address] Monocytes/100 WBC (Bld) 7.3 % Normal 0-10 [facility] Comment on above: Performed By: #### L 501.6710, L3890.6202, L100.0100, L4600.0100, L101.9900, L3890.6301, L3890.6102, L3400.8000, L500.4050, L505.7010 ####[facility] [address] [place], [address] Neutrophils/100 WBC (Bld) 73.8 % High 47-70 [facility] Comment on above: Performed By: #### L 501.6710, L3890.6202, L100.0100, L4600.0100, L101.9900, L3890.6301, L3890.6102, L3400.8000, L500.4050, L505.7010 ####[facility] [address] [place], [address] Nucleated RBC (Bld) [#/Vol] 0 10*3/uL Normal 0-5 [facility] Comment on above: Performed By: #### L 501.6710, L3890.6202, L100.0100, L4600.0100, L101.9900, L3890.6301, L3890.6102, L3400.8000, L500.4050, L505.7010 ####[facility] [address] [place], [address] Platelet mean volume (Bld) [Entitic vol] 12.4 fL High 6.2-12.0 [facility] Comment on above: Performed By: #### L 501.6710, L3890.6202, L100.0100, L4600.0100, L101.9900, L3890.6301, L3890.6102, L3400.8000, L500.4050, L505.7010 ####[facility] [address] [place], [address] Platelets (Bld) [#/Vol] 148 10*3/uL Low 150-450 [facility] Comment on above: Performed By: #### L 501.6710, L3890.6202, L100.0100, L4600.0100, L101.9900, L3890.6301, L3890.6102, L3400.8000, L500.4050, L505.7010 ####[facility] [address] [place], [address] RBC (Bld) [#/Vol] 4.39 10*6/uL Normal 4.2-5.4 [facility] Comment on above: Performed By: #### L 501.6710, L3890.6202, L100.0100, L4600.0100, L101.9900, L3890.6301, L3890.6102, L3400.8000, L500.4050, L505.7010 ####[facility] [address] [place], [address] RDW SD 45.3 fl High 35.1-43.9 [facility] Comment on above: Performed By: #### L 501.6710, L3890.6202, L100.0100, L4600.0100, L101.9900, L3890.6301, L3890.6102, L3400.8000, L500.4050, L505.7010 ####[facility] [address] [place], [place], [phone] WBC (Bld) [#/Vol] 7.7 10*3/uL Normal 4.4-11.0 [facility] Comment on above: Performed By: #### L 501.6710, L3890.6202, L100.0100, L4600.0100, L101.9900, L3890.6301, L3890.6102, L3400.8000, L500.4050, L505.7010 ####[facility] [address] [place], [place], [phone] CRPon 01-13-2025 C-REACTIVE PROT < 3.00 Normal 0.0-3.0 [facility] Comment on above: Performed By: #### L 501.6710, L3890.6202, L100.0100, L4600.0100, L101.9900, L3890.6301, L3890.6102, L3400.8000, L500.4050, L505.7010 ####[facility] [address] [facility] [place], [place], [phone] Carbon dioxide, total [Moles /volume] in Central venous bloodOrdered By: Jes Chapa on 01-13-2025 CO2 [Moles/Vol] 23.8 mmol/L 21.0-32.0 [facility] Chloride assayOrdered By: Scott Chapa on 01-13-2025 Chloride [Moles/Vol] 102 mmol/L 98-108 [facility] Comprehensive Metabolic Prof ilon 01-13-2025 Albumin [Mass/Vol] 4.4 g/dL Normal 3.4-4.8 [facility] Comment on above: Performed By: #### L 501.6710, L3890.6202, L100.0100, L4600.0100, L101.9900, L3890.6301, L3890.6102, L3400.8000, L500.4050, L505.7010 ####[facility] [address] [place], [address] Albumin/Globulin [Mass ratio] 1.5 {ratio} Normal 0.9-2.4 [facility] Comment on above: Performed By: #### L 501.6710, L3890.6202, L100.0100, L4600.0100, L101.9900, L3890.6301, L3890.6102, L3400.8000, L500.4050, L505.7010 ####[facility] [address] [place], [place], [phone] ALK PHOS 71 U/L Normal 35-104 [facility] Comment on above: Performed By: #### L 501.6710, L3890.6202, L100.0100, L4600.0100, L101.9900, L3890.6301, L3890.6102, L3400.8000, L500.4050, L505.7010 ####[facility] [address] [place], [place], [phone] ALT [Catalytic activity/Vol] 22 U/L Normal <=34 [facility] Comment on above: Performed By: #### L 501.6710, L3890.6202, L100.0100, L4600.0100, L101.9900, L3890.6301, L3890.6102, L3400.8000, L500.4050, L505.7010 ####[facility] [address] [place], [address] AST [Catalytic activity/Vol] 29 U/L Normal <=31 [facility] Comment on above: Performed By: #### L 501.6710, L3890.6202, L100.0100, L4600.0100, L101.9900, L3890.6301, L3890.6102, L3400.8000, L500.4050, L505.7010 ####[facility] [address] [place], [place], [phone] Bilirubin [Mass/Vol] 0.62 mg/dL Normal 0.00-1.30 [facility] Comment on above: Performed By: #### L 501.6710, L3890.6202, L100.0100, L4600.0100, L101.9900, L3890.6301, L3890.6102, L3400.8000, L500.4050, L505.7010 ####[facility] [address] [place], [place], [phone] BUN/CRE 13.8 RATIO Normal 10-20 [facility] Comment on above: Performed By: #### L 501.6710, L3890.6202, L100.0100, L4600.0100, L101.9900, L3890.6301, L3890.6102, L3400.8000, L500.4050, L505.7010 ####[facility] [address] [place], [place], [phone] Calcium [Mass/Vol] 9.8 mg/dL Normal 7.6-11.0 [facility] Comment on above: Performed By: #### L 501.6710, L3890.6202, L100.0100, L4600.0100, L101.9900, L3890.6301, L3890.6102, L3400.8000, L500.4050, L505.7010 ####[facility] [address] [place], [place], [phone] Chloride [Moles/Vol] 102 mmol/L Normal 98-108 [facility] Comment on above: Performed By: #### L 501.6710, L3890.6202, L100.0100, L4600.0100, L101.9900, L3890.6301, L3890.6102, L3400.8000, L500.4050, L505.7010 ####[facility] [address] [place], [place], [phone] CO2 [Moles/Vol] 23.8 mmol/L Normal 21.0-32.0 [facility] Comment on above: Performed By: #### L 501.6710, L3890.6202, L100.0100, L4600.0100, L101.9900, L3890.6301, L3890.6102, L3400.8000, L500.4050, L505.7010 ####[facility] [address] [place], [place], [phone] Creatinine [Mass/Vol] 0.91 mg/dL Normal 0.70-1.20 [facility] Comment on above: Performed By: #### L 501.6710, L3890.6202, L100.0100, L4600.0100, L101.9900, L3890.6301, L3890.6102, L3400.8000, L500.4050, L505.7010 ####[facility] [address] [place], [place], [phone] GAP 15 Normal 5-15 [facility] Comment on above: Performed By: #### L 501.6710, L3890.6202, L100.0100, L4600.0100, L101.9900, L3890.6301, L3890.6102, L3400.8000, L500.4050, L505.7010 ####[facility] [address] [place], [place], [phone] GFR/1.73 sq M.predicted among non-blacks MDRD (S/P/Bld) [Vol rate/Area] 65 mL/min/{1.73_m2} Normal >60 [facility] Comment on above: Result Comment: mL/m in/1.73m2 CKD-EPI Creatinine Equation (2020) Performed By: #### L 501.6710, L3890.6202, L100.0100, L4600.0100, L101.9900, L3890.6301, L3890.6102, L3400.8000, L500.4050, L505.7010 ####[facility] [address] [facility] [place], [address] Globulin (S) [Mass/Vol] 3.0 g/dL Normal 2.2-4.2 [facility] Comment on above: Performed By: #### L 501.6710, L3890.6202, L100.0100, L4600.0100, L101.9900, L3890.6301, L3890.6102, L3400.8000, L500.4050, L505.7010 ####[facility] [address] [facility] [place], [address] Glucose [Mass/Vol] 95 mg/dL Normal 70-99 [facility] Comment on above: Performed By: #### L 501.6710, L3890.6202, L100.0100, L4600.0100, L101.9900, L3890.6301, L3890.6102, L3400.8000, L500.4050, L505.7010 ####[facility] [address] [facility] [place], [address] Potassium [Moles/Vol] 3.5 mmol/L Normal 3.3-5.1 [facility] Comment on above: Performed By: #### L 501.6710, L3890.6202, L100.0100, L4600.0100, L101.9900, L3890.6301, L3890.6102, L3400.8000, L500.4050, L505.7010 ####[facility] [address] [facility] [place], [address] Sodium [Moles/Vol] 141 mmol/L Normal 133-145 [facility] Comment on above: Performed By: #### L 501.6710, L3890.6202, L100.0100, L4600.0100, L101.9900, L3890.6301, L3890.6102, L3400.8000, L500.4050, L505.7010 ####[facility] [address] [place], [address] T PROT 7.3 g/dL Normal 5.9-8.4 [facility] Comment on above: Performed By: #### L 501.6710, L3890.6202, L100.0100, L4600.0100, L101.9900, L3890.6301, L3890.6102, L3400.8000, L500.4050, L505.7010 ####[facility] [address] [place], [address] Urea nitrogen [Mass/Vol] 13 mg/dL Normal 4-19 [facility] Comment on above: Performed By: #### L 501.6710, L3890.6202, L100.0100, L4600.0100, L101.9900, L3890.6301, L3890.6102, L3400.8000, L500.4050, L505.7010 ####[facility] [id number] [place], [address] Eosinophil percentageOrdered By: Jes Chapa on 01-13-2025 Eosinophils/100 WBC (Bld) 1.2 % 0-5 [facility] Erythrocyte Sed Rateon 01-13 SED RATE 9 mm/hr Normal 0-30 [facility] Comment on above: Performed By: #### L 501.6710, L3890.6202, L100.0100, L4600.0100, L101.9900, L3890.6301, L3890.6102, L3400.8000, L500.4050, L505.7010 ####[facility] [id number] [place], [address] Erythrocyte distribution wid th ratioOrdered By: Jes Chapa on 01-13-2025 Erythrocyte distribution width (RBC) [Ratio] 12.4 % 11.6-14.6 [facility] Erythrocyte distribution wid th standard deviationOrdered By: Jes Chapa on 01-13-2025 Erythrocyte distribution width (RBC) [Ratio] 45.3 fl High 35.1-43.9 [facility] Erythrocyte sedimentation ra teOrdered By: Jes Chapa on 01-13-2025 ESR (Bld) [Velocity] 9 mm/h 0-30 [facility] Glomerular filtration rate ( GFR) estimation/1.73 sq m using serum, plasma, or whole bOrdered By: Jes hCapa on 01-13-2025 GFR/1.73 sq M.predicted among non-blacks MDRD (S/P/Bld) [Vol rate/Area] 65 mL/min/{1.73_m2} >60 [facility] Comment on above: mL/min/1.73m2 CKD-EP I Creatinine Equation (2020) Hand Min 3 Viewson Hand Min 3 Views [facility] Imaging Services [address] [place], [place] [address] Hand Min 3 Views MR#: [id number] Acct: [id number] Name: KRISTINA MCKEON Rep #: [id number] : 1945 F 79 From: Cruz Wolf MD PCP: Amber Bingham [employer] Status: REG CLI Study: Hand Min 3 Views Date of Exam: 01/13/25 Exam# [id number] Ordering Dr: Jes Chapa MD EXAM: XR Right Hand Complete, 3 or More Views CLINICAL INDICATION: RA TECHNIQUE: Frontal, lateral and oblique views of the right hand. COMPARISON: No relevant prior studies available. FINDINGS: BONES/JOINTS: Severe degenerative changes of the 1st metacarpal with joint. Severe degenerative changes of the D IP joints. Severe degenerative changes of the PIP joints of the 2nd and 5th digits. Severe degenerative change of the PIP joint of the 1st digit. No acute fracture. No dislocation. SOFT TISSUES: Soft tissue swelling. RAD/Hand Min 3 Views IMPRESSION: Degenerative changes as above. Reading Location: [facility] CC: July [employer] [place]til[place]; Dr. Jes Chapa MD Independent Film Maker: Signed Normal [facility] Hand Min 3 Views [facility] Imaging Services [address] [place] [address] Hand Min 3 Views MR#: [id number] Acct: [id number] Name: KRISTINA MCKEON Rep #: [id number] : 1945 F 79 From: Cruz Wolf MD PCP: Amber Bingham Status: REG CLI Study: Hand Min 3 Views Date of Exam: 01/13/25 Exam# [id number] Ordering Dr: Jes Chapa MD EXAM: XR Left Hand Complete, 3 or More Views CLINICAL INDICATION: RA TECHNIQUE: Frontal, lateral and oblique views of the left hand. COMPARISON: No relevant prior studies available. FINDINGS: BONES/JOINTS: Moderate degenerative changes of the 1st carpometacarpal joint. 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 No acute fracture. No dislocation. SOFT TISSUES: Soft tissue swelling. RAD/Hand Min 3 Views IMPRESSION: Degenerative changes as above. Reading Location: [facility] CC: July [employer] Otilia; Dr. Jes Chapa MD Independent Film Maker: Signed Normal [facility] Hematocrit Auto (Bld) [Volum e fraction]Ordered By: Jes Chapa on 01-13-2025 Hematocrit (Bld) [Volume fraction] 43.6 % 37-47 [facility] Hemoglobin measurementOrdere d By: Jes Chapa on 01-13-2025 Hemoglobin (Bld) [Mass/Vol] 14.2 g/dL 12.0-15.0 [facility] Hepatitis B Surface Antibody on 01-13-2025 HEP B Surf Ab Non-Reactive Normal [facility] Comment on above: Result Comment: <8.5 mIU/mL: Non-Reactive 8.5<= x <11.5 mIU/mL: Indeterminate >=11.5 mIU/mL: Reactive Non Reactive: Inconsistent with immunity less than <10 mIU/mL Reactive: Consistent with immunity greater than or equal to 10 mIU/mL Performed By: #### L 501.6710, L3890.6202, L100.0100, L4600.0100, L101.9900, L3890.6301, L3890.6102, L3400.8000, L500.4050, L505.7010 ####[facility] [id number] [facility]. [place], [place], [address] Hepatitis C Antibodyon 01-13 Hepatitis C Ab Non-Reactive Normal Nonreactive [facility] Comment on above: Result Comment: Reac tive: Presumptive evidence of antibodies to HCV. Follow CDC recommendations for supplemental testing. Non-Reactive: Antibodies to HCV were not detected; does not exclude the possibility of exposure to HCV Reactive Results are presumptive evidence of antibodies to HCV. Follow CDC recommendations for supplemental testing. Order confirmation testing: HCV Quant by PCR testing - HCVPCR #[id number] Non Reactive: < 0.8 Equivocal: >/= 0.8 to < 1.0 Reactive: >/= 1.0 The CDC requires that a reactive/equivocal HCV antibody result be sent out for confirmation. HCV Quant by PCR testing. Performed By: #### L 501.6710, L3890.6202, L100.0100, L4600.0100, L101.9900, L3890.6301, L3890.6102, L3400.8000, L500.4050, L505.7010 ####[facility] [id number] [facility]. [place], [place], [address] Immature granulocytes/100 WB C Auto (Bld)Ordered By: eJs Chapa on 01-13-2025 Immature granulocytes/100 WBC (Bld) 0.500 % 0.0-0.9 [facility] Comment on above: IG% - Immature Granu locytes (promyelocytes, myelocytes and metamyelocytes) > 1% indicates that a LEFT SHIFT is Present. L3890.6102on 01-13-2025 HEP B Surf Ag Non-Reactive Normal Nonreactive [facility] Comment on above: Result Comment: Reac tive: Presumptive evidence of HBV. Repeatedly reactive samples must be confirmed using a neutralization test ([employer] HBsAg Confirmatory Test) Non-Reactive: HBsAg not detected; does not exclude the possibility of exposure to HBV Performed By: #### L 501.6710, L3890.6202, L100.0100, L4600.0100, L101.9900, L3890.6301, L3890.6102, L3400.8000, L500.4050, L505.7010 ####[facility] [address] [place], [address] Laboratory - Chemistry and C hemistry - challengeOrdered By: Jes Chapa on 01-13-2025 AST [Catalytic activity/Vol] 29 U/L <32 [facility] Laboratory - Microbiology an d Antimicrobial susceptibilityOrdered By: Jes Chapa on 01-13-2025 HBV surface Ag Ql (S) Non-Reactive Nonreactive [facility] Comment on above: Reactive: Presumptiv e evidence of HBV. Repeatedly reactive samples must be confirmed using a neutralization test ([employer] HBsAg Confirmatory Test)Non-Reactive: HBsAg not detected; does not exclude the possibility of exposure to HBV MCV (mean corpuscular volume ) determinationOrdered By: Jes Chapa on 01-13-2025 MCV (RBC) [Entitic vol] 99.3 fL High 81-99 [facility] Mean corpuscular hemoglobin (MCH) determinationOrdered By: Jes Chapa on 01-13-2025 MCH (RBC) [Entitic mass] 32.3 pg High 27.0-32.0 [facility] Mean corpuscular hemoglobin concentration (MCHC) determinationOrdered By: Jes Chapa on 01-13-2025 MCHC (RBC) [Mass/Vol] 32.6 g/dL 32-36 [facility] Mean platelet volume determi nationOrdered By: Jes Chapa on 01-13-2025 Platelet mean volume (Bld) [Entitic vol] 12.4 fL High 6.2-12.0 [facility] Monocyte percentageOrdered B y: Jes Chapa on 01-13-2025 Monocytes/100 WBC (Bld) 7.3 % 0-10 [facility] Neutrophil percentageOrdered By: Jes Chapa on 01-13-2025 Neutrophils/100 WBC (Bld) 73.8 % High 47-70 [facility] Nucleated red blood cell per centageOrdered By: Jes Chapa on 01-13-2025 Nucleated RBC/100 WBC (Bld) [Ratio] 0 % 0-5 [facility] Pelvis 1 or 2 Viewson 2024 Pelvis 1 or 2 Views [facility] Imaging Services [address] [place], [place] [address] Pelvis 1 or 2 Views MR#: [id number] Acct: [id number] Name: KRISTINA MCKEON Rep #: [id number] : 1945 F 79 From: rCuz Wolf MD PCP: OtiliaAmber [employer] Status: REG CLI Study: Pelvis 1 or 2 Views Date of Exam: 01/13/25 Exam# [id number] Ordering Dr: Jes Chapa MD EXAM: XR Pelvis, 1 or 2 Views CLINICAL INDICATION: RA TECHNIQUE: Frontal view of the pelvis. COMPARISON: No relevant prior studies available. FINDINGS: BONES/JOINTS: Mild degenerative changes of the hip joints, bilaterally. Moderate degenerative change pubic symphysis and sacroiliac joints, bilaterally. No acute fracture. No dislocation. SOFT TISSUES: Unremarkable. RAD/Pelvis 1 or 2 Views IMPRESSION: Degenerative changes as above. Reading Location: [id number] CC: July [employer] O[place]; Dr. Jes Chapa MD Independent Film Maker: Signed Normal [facility] Platelet countOrdered By: Scott Chapa on 01-13-2025 Platelets (Bld) [#/Vol] 148 10*3/uL Low 150-450 [facility] Potassium measurement (mass/ volume)Ordered By: Jes Chapa on 01-13-2025 Potassium (Unsp spec) [Mass/Vol] 3.5 mmol/L 3.3-5.1 [facility] Qualitative QuantiFERON-TB g old in tube testOrdered By: Jes Chapa on 01-13-2025 M. tuberculosis tuberculin stim IFN-g Ql (Bld) 0.09 IU/mL . [facility] RBC Auto (Bld) [#/Vol]Ordere d By: Jes Chapa on 01-13-2025 RBC (Bld) [#/Vol] 4.39 10*6/uL 4.2-5.4 [facility] Rheumatoid Factoron 01-14-20 25 RHEUMATOID FAC < 10.0 Normal <15 [facility] Comment on above: Performed By: #### L 501.6710, L3890.6202, L100.0100, L4600.0100, L101.9900, L3890.6301, L3890.6102, L3400.8000, L500.4050, L505.7010 ####[facility] [address] [place], [address] Serum creatinine measurement (mass/volume)Ordered By: Jes Chapa on 01-13-2025 Creatinine [Mass/Vol] 0.91 mg/dL 0.70-1.20 [facility] Serum globulin measurementOr dered By: Jes Chapa on 01-13-2025 Globulin (S) [Mass/Vol] 3.0 g/dL 2.2-4.2 [facility] Serum glucose measurement (m ass/volume)Ordered By: Jes Chapa on 01-13-2025 Glucose [Mass/Vol] 95 mg/dL 70-99 [facility] Serum hepatitis B virus surf bryan antibody detectionOrdered By: Jes Chapa on 01-13-2025 HBV surface Ab Ql (S) Non-Reactive [facility] Comment on above: <8.5 mIU/mL: Non-Gissell ctive8.5<= x <11.5 mIU/mL: Indeterminate>=11.5 mIU/mL: Reactive Non Reactive: Inconsistent with immunity less than <10 mIU/mL Reactive: Consistent with immunity greater than or equal to 10 mIU/mL Serum or plasma C reactive p rotein measurement (mass/volume)Ordered By: Jes Chapa on 01-13-2025 CRP [Mass/Vol] mg/L 0.0-3.0 [facility] Serum or plasma alanine gatica otransferase (ALT) measurementOrdered By: Jes Chapa on 01-13-2025 ALT [Catalytic activity/Vol] 22 U/L <35 [facility] Serum or plasma albumin jim urement (mass/volume)Ordered By: Jes Chapa on 01-13-2025 Albumin [Mass/Vol] 4.4 g/dL 3.4-4.8 [facility] Serum or plasma albumin/glob ulin mass ratioOrdered By: Jes Chapa on 01-13-2025 Albumin/Globulin [Mass ratio] 1.5 {ratio} 0.9-2.4 [facility] Serum or plasma alkaline garrett sphatase measurementOrdered By: Jes Chapa on 01-13-2025 ALP [Catalytic activity/Vol] 71 U/L 35-104 [facility] Serum or plasma calcium jim urement (mass/volume)Ordered By: Jes Chapa on 01-13-2025 Calcium [Mass/Vol] 9.8 mg/dL 7.6-11.0 [facility] Serum or plasma cyclic citru llinated peptide IgG antibody assay (units/volume)Ordered By: Jes Chapa on 01-13-2025 Cyclic citrullinated peptide IgG Qn 24 units High 0-19 [facility] Comment on above: Negative <20 Weak po sitive 20 - 39 Moderate positive 40 - 59 Strong positive >59Performed at: [facility] [place] [id number] Director: Jun Jackson PhD, Phone: [phone] Serum or plasma urea nitroge n measurement (mass/volume)Ordered By: Jes Chapa on 01-13-2025 Urea nitrogen [Mass/Vol] 13 mg/dL 4-19 [facility] Serum rheumatoid factor dete ctionOrdered By: Jes Cahpa on 01-13-2025 Rheumatoid factor Ql (S) < 10.0 IU/mL <15 [facility] Sodium levelOrdered By: Ken Chapa on 01-13-2025 Sodium [Moles/Vol] 141 mmol/L 133-145 [facility] Total proteinOrdered By: Trish Chapa on 01-13-2025 Protein [Mass/Vol] 7.3 g/dL 5.9-8.4 [facility] White blood cell (WBC) count Ordered By: Jes Chapa on 01-13-2025 WBC (Bld) [#/Vol] 7.7 10*3/uL 4.4-11.0 [facility] Absolute lymphocyte countOrd ered By: Yassine Dsouza on 01-08-2025 Lymphocytes Auto (Unsp spec) [#/Vol] 1.98 10*3/uL 0.83-4.51 [facility] Absolute neutrophil countOrd ered By: Yassine Dsouza on 01-08-2025 Neutrophils (Bld) [#/Vol] 5.8 10*3/uL 2.0-7.7 [facility] Anion gap in Serum or Plasma Ordered By: Yassine Dsouza on 01-08-2025 Anion gap [Moles/Vol] 10 mmol/L 5-15 [facility] Automated lymphocyte count a s percentage of total leukocytesOrdered By: Yassine Dsouza on 01-08-2025 Lymphocytes/100 WBC Auto (Unsp spec) 21.8 % 19-41 [facility] BUN/creatinine ratioOrdered By: Yassine Dsouza on 01-08-2025 Urea nitrogen/Creatinine [Mass ratio] 20.0 mg/mg 10- [facility] Basic Metabolic Profile (BMP )on 01-08-2025 BUN/CRE 20.0 RATIO Normal - [facility] Comment on above: Performed By: #### L 100.0100, L300.3900, L500.2500 ####[facility] [address] [place], [address] Calcium [Mass/Vol] 9.1 mg/dL Normal 7.6-11.0 [facility] Comment on above: Performed By: #### L 100.0100, L300.3900, L500.2500 ####[facility] [address] [place], [address] Chloride [Moles/Vol] 105 mmol/L Normal 98-108 [facility] Comment on above: Performed By: #### L 100.0100, L300.3900, L500.2500 ####[facility] [address] [place], [address] CO2 [Moles/Vol] 25.7 mmol/L Normal 21.0-32.0 [facility] Comment on above: Performed By: #### L 100.0100, L300.3900, L500.2500 ####[facility] [address] [place], [address] Creatinine [Mass/Vol] 0.88 mg/dL Normal 0.70-1.20 [facility] Comment on above: Performed By: #### L 100.0100, L300.3900, L500.2500 ####[facility] [address] [place], [address] GAP 10 Normal 5-15 [facility] Comment on above: Performed By: #### L 100.0100, L300.3900, L500.2500 ####[facility] [address] [place], [address] GFR/1.73 sq M.predicted among non-blacks MDRD (S/P/Bld) [Vol rate/Area] 67 mL/min/{1.73_m2} Normal >60 [facility] Comment on above: Result Comment: mL/m in/1.73m2 CKD-EPI Creatinine Equation (2020) Performed By: #### L 100.0100, L300.3900, L500.2500 ####[facility] [address] [place], [address] Glucose [Mass/Vol] 111 mg/dL High 70-99 [facility] Comment on above: Performed By: #### L 100.0100, L300.3900, L500.2500 ####[facility] [address] [place], [address] Potassium [Moles/Vol] 4.0 mmol/L Normal 3.3-5.1 [facility] Comment on above: Result Comment: Hemo lysis present, Results??could be affected. ?? Performed By: #### L 100.0100, L300.3900, L500.2500 ####[facility] [address] [place], [address] Sodium [Moles/Vol] 141 mmol/L Normal 133-145 [facility] Comment on above: Performed By: #### L 100.0100, L300.3900, L500.2500 ####[facility] [address] [place], [address] Urea nitrogen [Mass/Vol] 18 mg/dL Normal 4-19 [facility] Comment on above: Performed By: #### L 100.0100, L300.3900, L500.2500 ####[facility] [address] [place], [address] Basophil percentageOrdered B y: Yassine Dsouza on 01-08-2025 Basophils/100 WBC (Bld) 1.2 % High 0-1 [facility] CBC W/Diff, Automatedon 12-16 Absolute Lymph 1.98 X10 3/uL Normal 0.83-4.51 [facility] Comment on above: Performed By: #### L 100.0100, L300.3900, L500.2500 #### [facility] [address] [place], [address] Absolute Neut 5.8 X10 3/uL Normal 2.0-7.7 [facility] Comment on above: Performed By: #### L 100.0100, L300.3900, L500.2500 #### [facility] [address] [place], [address] Basophils/100 WBC (Bld) 1.2 % High 0-1 [facility] Comment on above: Performed By: #### L 100.0100, L300.3900, L500.2500 #### [facility] [address] [place], [address] Eosinophils/100 WBC (Bld) 1.3 % Normal 0-5 [facility] Comment on above: Performed By: #### L 100.0100, L300.3900, L500.2500 #### [facility] [address] [place], [address] Erythrocyte distribution width (RBC) [Ratio] 12.5 % Normal 11.6-14.6 [facility] Comment on above: Performed By: #### L 100.0100, L300.3900, L500.2500 #### [facility] [address] [place], [address] Hematocrit (Bld) [Volume fraction] 45.6 % Normal 37-47 [facility] Comment on above: Performed By: #### L 100.0100, L300.3900, L500.2500 #### [facility] [address] [place], [address] Hemoglobin (Bld) [Mass/Vol] 14.7 g/dL Normal 12.0-15.0 [facility] Comment on above: Performed By: #### L 100.0100, L300.3900, L500.2500 #### [facility] [address] [place], [address] IG% 1.500 High 0.0-0.9 [facility] Comment on above: Result Comment: IG% - Immature Granulocytes (promyelocytes, myelocytes and metamyelocytes) > 1% indicates that a LEFT SHIFT is Present. Performed By: #### L 100.0100, L300.3900, L500.2500 #### [facility] [address] [place], [address] Lymphocytes/100 WBC (Bld) 21.8 % Normal 19-41 [facility] Comment on above: Performed By: #### L 100.0100, L300.3900, L500.2500 #### [facility] [address] [place], [address] MCH (RBC) [Entitic mass] 32.6 pg High 27.0-32.0 [facility] Comment on above: Performed By: #### L 100.0100, L300.3900, L500.2500 #### [facility] [address] [place], [address] MCHC (RBC) [Mass/Vol] 32.2 g/dL Normal 32-36 [facility] Comment on above: Performed By: #### L 100.0100, L300.3900, L500.2500 #### [facility] [address] [place], [address] MCV (RBC) [Entitic vol] 101.1 fL High 81-99 [facility] Comment on above: Performed By: #### L 100.0100, L300.3900, L500.2500 #### [facility] [address] [place], [address] Monocytes/100 WBC (Bld) 10.1 % High 0-10 [facility] Comment on above: Performed By: #### L 100.0100, L300.3900, L500.2500 #### [facility] [address] [place], [address] Neutrophils/100 WBC (Bld) 64.1 % Normal 47-70 [facility] Comment on above: Performed By: #### L 100.0100, L300.3900, L500.2500 #### [facility] [address] [place], [address] Nucleated RBC (Bld) [#/Vol] 0 10*3/uL Normal 0-5 [facility] Comment on above: Performed By: #### L 100.0100, L300.3900, L500.2500 #### [facility] [address] [place], [address] Platelet mean volume (Bld) [Entitic vol] 11.2 fL Normal 6.2-12.0 [facility] Comment on above: Performed By: #### L 100.0100, L300.3900, L500.2500 #### [facility] [address] [place], [address] Platelets (Bld) [#/Vol] 229 10*3/uL Normal 150-450 [facility] Comment on above: Performed By: #### L 100.0100, L300.3900, L500.2500 #### [facility] [address] [place], [address] RBC (Bld) [#/Vol] 4.51 10*6/uL Normal 4.2-5.4 [facility] Comment on above: Performed By: #### L 100.0100, L300.3900, L500.2500 #### [facility] [address] [place], [address] RDW SD 46.9 fl High 35.1-43.9 [facility] Comment on above: Performed By: #### L 100.0100, L300.3900, L500.2500 #### [facility] [address] [place], [address] WBC (Bld) [#/Vol] 9.1 10*3/uL Normal 4.4-11.0 [facility] Comment on above: Performed By: #### L 100.0100, L300.3900, L500.2500 #### [facility] [address] [place], [address] Carbon dioxide, total [Moles /volume] in Central venous bloodOrdered By: Yassine Dsouza on 01-08-2025 CO2 [Moles/Vol] 25.7 mmol/L 21.0-32.0 [facility] Cardiology Visit Reporton Cardiology Visit Report [facility] [address] [place] [address] OFFICE VISIT Date of Service: 01/08/25 MR#: [id number] Acct: [id number] Name: KRISTINA MCKEON Rep #: [id number] : 1945 Provider: TOMAS mota Age/Sex: 79/F Location[facility] Status: Signed HPI HPI History of Present Illness Surgical H P: Yes Details: This is a 79-year-old female who presents today for cardiovascular follow-up visit. Patient had been having exertional dyspnea on exertion and shortness of breath with some chest sensations when walking up an incline. She underwent a stress echocardiogram on 12/30/2024 which demonstrated suboptimal results due to low workload, and low exercise as well as significant ectopy during exercise. The patient carries a history of being diagnosed with mitral valve prolapse several years ago. She does report that she stopped exercising a few months ago and after that is when she started having the symptoms. Patient has a family history of coronary disease she quit smoking in 1989. She does have a history of hypertension and hyperlipidemia; she is not diabetic. The patient does not have COPD she was diagnosed with reactive airway disease several years ago was treated with inhalers for a short period of time and has had no recurrence. The patient had she was evaluated with stress testing in 2015 had a pharmacologic nuclear stress test which was negative she had echocardiogram done February 2020 which showed normal LV size and function with EF of 60% there was 1+ tricuspid and mitral regurgitation. From a cardiac standpoint, the patient is doing well. She does acknowledge occasional palpitations. This is more with activity. She does acknowledge SOB with exertion, and walking up an incline. She does acknowledge occasional chest pain. She denies pressure or heaviness. She denies Orthopnea, and PND. She does not have bleeding issues; no blood in urine, stool, or nosebleeds. She denies any decrease in energy level, myalgias, or claudication. She does not have edema, or sudden weight gain. She does acknowledge occasional lightheadedness. She denies dizziness, syncopal or near syncopal episodes, and headaches. 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 Required: No Is patient in pain?: No Allergies latex Allergy (Mild, Verified 01/08/25 14:50) hives Sulfa (Sulfonamide Antibiotics) Allergy (Mild, Verified 01/08/25 14:50) hives Penicillins Allergy (Verified 01/08/25 14:50) Other codeine Adverse Reaction (Mild, Verified 01/08/25 14:50) palpitations levofloxacin (From Levaquin) Adverse Reaction (Mild, Verified 01/08/25 14:50) myalgias oxycodone (From OxyContin) Adverse Reaction (Verified 01/08/25 14:50) Nausea/Vom/Diarrhea Medications ???Medication ???Instructions ???Recorded ???Confirmed ???Type atorvastatin 20 mg tablet (Lipitor) 20 mg PO DAILY 09/26/18 5 History lorazepam 0.5 mg tablet 0.5 mg PO QHS PRN Anxiety 09/26/18 01/08/25 History zolpidem 10 mg tablet 10 mg PO QHS PRN insomnia 09/26/18 01/08/25 History acetaminophen 500 mg capsule 500 mg PO Q6H PRN 11/28/24 5 History docusate sodium 100 mg capsule 100 mg PO QDAY 11/28/24 01/08/25 H istory omeprazole 20 mg capsule,delayed 20 mg PO DAILY 11/28/24 01/08/25 H istory release atenolol 25 mg tablet 12.5 mg (1/2 x 25 mg) PO BID #180 01/02/25 01/08/25 Rx tabs Have you fallen in the past year?: No PFSH Medical History (Reviewed 01/08/25 @ 14:50 by Zayda Stewart [employer], [employer]) Restless leg syndrome Anxiety Osteopenia Back pain Osteoarthritis GERD (gastroesophageal reflux disease) COPD (chronic obstructive pulmonary disease) Emphysema of lung HTN (hypertension) Hyperlipidemia Surgical History History of inguinal hernia repair ( 11/2018) History of neck surgery Status post tonsillectomy and adenoidectomy History of dilation and curettage History of esophagogastroduodenosco py (EGD) ( 2018) History of colonoscopy ( 2018) History of bilateral breast implants Status post hip surgery History of back surgery ( 2012) Family History Father Heart disease CHF (congestive heart failure) Diabetes Mother Heart disease Social History Smoking Status: Former smoker quit date: 04/16/89 pack-years: 24 Tobacco: How many years used: 24 alcohol intake: current details: Rarely (more content not included)... Normal [facility] Chest PA and Lateralon 01-08 Chest PA and Lateral [facility] Imaging Services [address] [place] [address] [id number] Chest PA and Lateral MR#: [id number] Acct: [id number] Name: KRISTINA MCKEON Rep #: [id number] : 1945 F 79 From: Jhonatan Suárez MD PCP: Amber Bingham [employer] Status: PRE [facility] Study: Chest PA and Lateral Date of Exam: 01/08/25 Exam# [id number] Ordering Dr: Yassine Dsouza PROCEDURE: CHEST PA AND LATERAL 01/08/2025 REASON FOR EXAM: CHEST PAIN, PRE-PROCEDURAL TECHNIQUE: Procedure Code: RADCXR Modality: DX Procedure: CHEST PA AND LATERAL COMPARISON: None. FINDINGS: There is scarring in the left lung base. There is no lobar consolidation or pleural effusion. The heart size is normal. There is calcific vascular disease of the thoracic aorta. Status post multilevel ACDF of the lower cervical spine. 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 RAD/Chest PA and Lateral IMPRESSION: Scarring in the left lung base. No evidence of acute cardiopulmonary pathology. Other findings as noted. Reading Location: [facility] CC: July TOMAS Bingham; SCOTT Woods Independent Film Maker: Signed Normal [facility] Chloride assayOrdered By: Corin Dsouza on 01-08-2025 Chloride [Moles/Vol] 105 mmol/L 98-108 [facility] Eosinophil percentageOrdered By: Yassine Dsouza on 01-08-2025 Eosinophils/100 WBC (Bld) 1.3 % 0-5 [facility] Erythrocyte distribution wid th ratioOrdered By: Yassine Dsouza on 01-08-2025 Erythrocyte distribution width (RBC) [Ratio] 12.5 % 11.6-14.6 [facility] Erythrocyte distribution wid th standard deviationOrdered By: Yassine Dsouza on 01-08-2025 Erythrocyte distribution width (RBC) [Ratio] 46.9 fl High 35.1-43.9 [facility] Glomerular filtration rate ( GFR) estimation/1.73 sq m using serum, plasma, or whole bOrdered By: Yassine Dsouza on 01-08-2025 GFR/1.73 sq M.predicted among non-blacks MDRD (S/P/Bld) [Vol rate/Area] 67 mL/min/{1.73_m2} >60 [facility] Comment on above: mL/min/1.73m2 CKD-EP I Creatinine Equation (2020) Hematocrit Auto (Bld) [Volum e fraction]Ordered By: Yassine Dsouza on 01-08-2025 Hematocrit (Bld) [Volume fraction] 45.6 % 37-47 [facility] Hemoglobin measurementOrdere d By: Yassine Dsouza on 01-08-2025 Hemoglobin (Bld) [Mass/Vol] 14.7 g/dL 12.0-15.0 [facility] Immature granulocytes/100 WB C Auto (Bld)Ordered By: Yassine Dsouza on 01-08-2025 Immature granulocytes/100 WBC (Bld) 1.500 % High 0.0-0.9 [facility] Comment on above: IG% - Immature Granu locytes (promyelocytes, myelocytes and metamyelocytes) > 1% indicates that a LEFT SHIFT is Present. International normalized rat io (INR) calculationOrdered By: Yassine Dsouza on 01-08-2025 INR Coag (Bld) [Relative time] 0.9 {INR} [facility] MCV (mean corpuscular volume ) determinationOrdered By: Yassine Dsouza on 01-08-2025 MCV (RBC) [Entitic vol] 101.1 fL High 81-99 [facility] Mean corpuscular hemoglobin (MCH) determinationOrdered By: Yassine Dsouza on 01-08-2025 MCH (RBC) [Entitic mass] 32.6 pg High 27.0-32.0 [facility] Mean corpuscular hemoglobin concentration (MCHC) determinationOrdered By: Yassine Dsouza on 01-08-2025 MCHC (RBC) [Mass/Vol] 32.2 g/dL 32-36 [facility] Mean platelet volume determi nationOrdered By: Yassine Dsouza on 01-08-2025 Platelet mean volume (Bld) [Entitic vol] 11.2 fL 6.2-12.0 [facility] Monocyte percentageOrdered B y: Yassine Dsouza on 01-08-2025 Monocytes/100 WBC (Bld) 10.1 % High 0-10 [facility] Neutrophil percentageOrdered By: Yassine Dsouza on 01-08-2025 Neutrophils/100 WBC (Bld) 64.1 % 47-70 [facility] Nucleated red blood cell per centageOrdered By: Yassine Dsouza on 01-08-2025 Nucleated RBC/100 WBC (Bld) [Ratio] 0 % 0-5 [facility] Platelet countOrdered By: Corin Dsouza on 01-08-2025 Platelets (Bld) [#/Vol] 229 10*3/uL 150-450 [facility] Potassium measurement (mass/ volume)Ordered By: Yassine Dsouza on 01-08-2025 Potassium (Unsp spec) [Mass/Vol] 4.0 mmol/L 3.3-5.1 [facility] Comment on above: Hemolysis present, R esults could be affected. Prothrombin Time w/INRon INR Coag (PPP) [Relative time] 0.9 {INR} Normal [facility] Comment on above: Performed By: #### L 100.0100, L300.3900, L500.2500 #### [facility] [address] [place], [address] PT Coag (PPP) [Time] 11.8 s Normal 11.7-14.9 [facility] Comment on above: Performed By: #### L 100.0100, L300.3900, L500.2500 #### [facility] [address] [place], [address] Prothrombin timeOrdered By: Yassine Dsouza on 01-08-2025 PT Coag (PPP) [Time] 11.8 s 11.7-14.9 [facility] RBC Auto (Bld) [#/Vol]Ordere d By: Yassine Dsouza on 01-08-2025 RBC (Bld) [#/Vol] 4.51 10*6/uL 4.2-5.4 [facility] Serum creatinine measurement (mass/volume)Ordered By: Yassine Dsouza on 01-08-2025 Creatinine [Mass/Vol] 0.88 mg/dL 0.70-1.20 [facility] Serum glucose measurement (m ass/volume)Ordered By: Yassine Dsouza on 01-08-2025 Glucose [Mass/Vol] 111 mg/dL High 70-99 [facility] Serum or plasma calcium jim urement (mass/volume)Ordered By: Yassine Dsouza on 01-08-2025 Calcium [Mass/Vol] 9.1 mg/dL 7.6-11.0 [facility] Serum or plasma urea nitroge n measurement (mass/volume)Ordered By: Yassine Lianna on 01-08-2025 Urea nitrogen [Mass/Vol] 18 mg/dL 4-19 [facility] Sodium levelOrdered By: Maxime Dsouza on 01-08-2025 Sodium [Moles/Vol] 141 mmol/L 133-145 [facility] White blood cell (WBC) count Ordered By: Yassine Dsouza on 01-08-2025 WBC (Bld) [#/Vol] 9.1 10*3/uL 4.4-11.0 [facility] Stress echocardiogram study reportOrdered By: Praful De León on 12-31-2024 Stress cardiac echo study report [facility] Cardiovascular Services [address] [place] [address] Stress Test Echo w/o Contrast MR#: [id number] Acct: [id number] Name: KRISTINA MCKEON Rep #: [id number] : 1945 79 From: Praful De León MD Primary Care: [employer] Status: REG CLI Ordering Dr: Ronak Cortes MD Sex: F C Reason For Study Reason For Study: Shortness of breath Stress Results Protocol: Stress Echocardiogram [place] Protocol Maximum Predicted HR: 142 bpm Target HR: 121 bpm % Maximum Predicted HR: 111 % DurationHeart Rate Stage (mm:ss) (bpm) BP Comment Baseline 85 134/60Patient denies chest pain Stage 1 3:00 157 124/80Patient complains of shortness of breath. Denies chest pain Recovery 100 139/79Patient denies chest pain Stress Duration: 3:00 mm:ss Maximum Stress HR: 157 bpm Baseline Echocardiogram Findings Stress Echo Wall motion Data Resting WM Intermediate WM Stress WM Time Measurements MV dec time: 0.31 sec Doppler Measurements & Calculations MV E max magno: 111.2 cm/sec Lat Peak E' Magno: 7.1 cm/sec Med Peak E' Magno: 6.4 cm/sec MV A max magno: 145.4 cm/sec E/E' lat: 15.7 E/E' med: 17.4 MV E/A: 0.76 _ MV dec slope: 301.6 cm/sec2 ECHO/Stress Test Echo w/o Contrast Interpretation Summary Exercise stress echo. 79-year-old lady with a history of shortness of breath. Stress EKG. Resting EKG demonstrates normal sinus rhythm with a right bundle branch block premature ventricular complexes and a rate of 85 bpm. Resting blood pressure is 134/61 mmHg. The patient exercised according to regular [place] protocol for total duration of 3 minutes the maximum heart rate attained was 150bpm which was over 83% of max impacted heart rate. The patient was noted to have significant ventricular ectopy during exercise and also at rest. Upsloping EKG changes were noted which did not meet the criteria for ischemia the patient did however experience significant shortness of breath necessitating termination of the test at 4.6 METS. The peak blood pressure was 158/65 mmHg. Stress echocardiogram. The resting echocardiogram demonstrated preserved ejection fraction of 60% no obvious wall motion abnormalities were noted. At peak exercise there was improvement of ejection fraction to approximately 65% with no wall motion abnormalities noted. Significant ectopy was noted making appropriate image selection difficult. Conclusion: Exercise stress echo with suboptimal results due to low workload, and low exercise as well as significant ectopy during exercise. No obvious ischemia noted at this time but functional capacity appearsto be at least moderately reduced. Ordering Physician: Ronak Cortes Referring Physician: Ronak Cortes Performed By: Marisol Haq, AGAPITO, RVT 12/31/24 0755 Date _ Praful De León MD CC: July TOMAS Bingham; Dr. Ronak Cortes MD ~ Date Dictated: 12/30/24 1308 Date Transcribed: 12/31/24754 Independent Film Maker: Signed [facility] Work Phone: Stress Test Echo w/o Contras ton 12-30-2024 Stress Test Echo w/o Contrast [facility] Cardiovascular Services [address] [place] [address], [place] [address] Stress Test Echo w/o Contrast MR#: [id number] Acct: [id number] Name: KRISTINA MCKEON Rep #: [id number] : 1945 79 From: Praful De León MD Primary Care: [employer] Status: RE G CLI Ordering Dr: Ronak Cortes MD Sex: F C Reason For Study Reason For Study: Shortness of breath Stress Results Protocol: Stress Echocardiogram [place] Protocol Maximum Predicted HR: 142 bpm Target HR: 121 bpm % Maximum Predicted HR: 111 % DurationHeart Rate Stage (mm:ss) (bpm) BP Comment Baseline 85 134/60Patient denies chest pain Stage 1 3:00 157 124/80Patient complains of shortness of breath. Denies chest pain Recovery 100 139/79Patient denies chest pain Stress Duration: 3:00 mm:ss Maximum Stress HR: 157 bpm Baseline Echocardiogram Findings Stress Echo Wall motion Data Resting WM Intermediate WM Stress WM Time Measurements MV dec time: 0.31 sec Doppler Measurements Calculations MV E max magno: 111.2 cm/sec Lat Peak E' Magno: 7.1 cm/sec Med Peak E' Magno: 6.4 cm/sec MV A max magno: 145.4 cm/sec E/E' lat: 15.7 E/E' med: 17.4 MV E/A: 0.76 _ MV dec slope: 301.6 cm/sec2 ECHO/Stress Test Echo w/o Contrast Interpretation Summary Exercise stress echo. 79-year-old lady with a history of shortness of breath. Stress EKG. Resting EKG demonstrates normal sinus rhythm with a right bundle branch block premature ventricular complexes and a rate of 85 bpm. Resting blood pressure is 134/61 mmHg. The patient exercised according to regular [place] protocol for total duration of 3 minutes the maximum heart rate attained was 150 bpm which was over 83% of max impacted heart rate. The patient was noted to have significant ventricular ectopy during exercise and also at rest. Upsloping EKG changes were noted which did not meet the criteria for ischemia the patient did however experience significant shortness of breath necessitating termination of the test at 4.6 METS. The peak blood pressure was 158/65 mmHg. Stress echocardiogram. The resting echocardiogram demonstrated preserved ejection fraction of 60% no obvious wall motion abnormalities were noted. At peak exercise there was improvement of ejection fraction to approximately 65% with no wall motion abnormalities noted. Significant ectopy was noted making appropriate image selection difficult. Conclusion: Exercise stress echo with suboptimal results due to low workload, and low exercise as well as significant ectopy during exercise. No obvious ischemia noted at this time but functional capacity appears to be at least moderately reduced. Ordering Physician: Ronak Cortes Referring Physician: Ronak Cortes Performed By: Marisol Haq, AGAPITO, RVT 12/31/24 0755 Date Praful De León MD CC: July [employer]-[place]; Dr. Ronak Cortes MD Date Dictated: 12/30/24 1308 Date Transcribed: 12/31/24 6398 Independent Film Maker: Signed Normal [facility] CT SINUSES W/O CONTRASTon CT SINUSES W/O CONTRAST [place] [address] Patient: KRISTINA MCKEON Phone#: : 1945 Age: 79 Gender: F Pt. Type: Out Account: [id number] Location: 052 Ordering: RAYMUNOD SPARKS Exam Date: 12/25/2024/13:01 Family Phys: TYRONE OCHOA Charge Code: 499078 Physician: [place] Order #: [id number] Dose#: 22.90 mGy PROCEDURE: CT SINUSES WITHOUT CONTRAST COMPARISON: None. INDICATIONS: Facial pain-left. TECHNIQUE: CT images were created without intravenous contrast. All CT scans at this facility use dose modulation, iterative reconstruction, and/or weight based dosing when appropriate to reduce radiation dose to as low as reasonably achievable. IV CONTRAST: No IV contrast used,0.0ml TOTAL DOSE: 22.90 CTDIvol(mGy) FINDINGS: MAXILLARY SINUSES: Normal. No significant mucosal thickening or fluid. Infundibula are patent. No anomalous inferior orbital ethmoid (Madalyn) air cells. ETHMOID SINUSES: Normal. No significant mucosal thickening or fluid. Fovea ethmoidali and lamina papyracea are symmetric and intact. SPHENOID SINUSES: Normal. No significant mucosal thickening or fluid. Sphenoethmoidal recesses are patent. No bony dehiscence. FRONTAL SINUSES: A 3 millimeter left frontal osteoma is present. No significant mucosal thickening or fluid. Frontal recesses are patent. No anomalous frontal air cells. NASAL FOSSA: Normal. No septal perforation or deviation. No jacobo bullosa or paradoxical turbinates are identified. OTHER: Normal. Limited views of the skull base and orbits are unremarkable. CONCLUSION: 1. Left frontal osteoma. 2. There is no other significant mucosal thickening or sinus lesion. Dictated by: Aniyah Preciado MD on 12/25/2024 at 13:29 Continued Report - Page 2 of 2 Patient: KRISTINA MCKEON Phone#: : 1945 Age: 79 Gender: F Pt. Type: Out Account: [id number] Location: 052 Ordering: RAYMUNDO SPARKS Exam Date: 12/25/2024/13:01 Family Phys: TYRONE OCHOA Charge Code: 880446 Physician: [place] Order #: [id number] Dose#: 22.90 mGy Approved by: Aniyah Preciado MD on 12/25/2024 at 13:32 Normal [facility] Cardiology Visit Reporton Cardiology Visit Report [facility] [address] [place] [address] OFFICE VISIT Date of Service: 11/28/24 MR#: [id number] Acct: [id number] Name: KRISTINA MCKEON Rep #: [id number] : 1945 Provider: Dr. Ronak hylton MD Age/Sex: 79/F Location: [facility] Status: Signed with Addenda ADDENDUM by Dr. Ronak Cortes MD on 11/28/24 at 1154 Addendum Addendum Details:: ECG in office today shows normal sinus rhythm with a right bundle branch block. Assessment and Plan Assessment and Plan (1) Shortness of breath: Status: Acute (2) Chest pain: Status: Acute Qualifiers: Chest pain type: unspecified Qualified Code(s): R07.9 - Chest pain, unspecified (3) Heart palpitations: Status: Acute Orders: Orders 12 Lead EKG performed by [facility] Today R06.02 - Shortness of breath Stress Test Echo w/o Contrast 2 Weeks R06.02 - Shortness of breath, R07.9 - Chest pain, unspecified Cardiac Holter Monitor, 48 Hrs Today R00.2 - Palpitations, R06.02 - Shortness of breath, R07.9 - Chest pain, unspecified Plan Details Follow Up: 1 Year (With GABRIELLE or Dr. Cortes and as needed) 11/28/24 1154 Date Ronak Cortes MD cc: July EDER-[facility] [place] * Signed HPI HPI History of Present Illness Details: Patient very pleasant 79-year-old white female that comes in today for new patient visit. The patient is having exertional dyspnea on exertion and shortness of breath with some chest sensations when walking up an incline. This is but this is reproducible she also occasionally has palpitations and is getting lightheaded. This occurs almost on a daily basis. The patient carries a history of being diagnosed with mitral valve prolapse several years ago. She does report that she stopped exercising a few months ago and after that is when she started having the symptoms. Patient has a family history of coronary disease she quit smoking in 1989. She does have a history of hypertension and hyperlipidemia she is not diabetic. The patient does not have COPD she was diagnosed with reactive airway disease several years ago was treated with inhalers for a short period of time and has had no recurrence. The patient had she was evaluated with stress testing in 2015 had a pharmacologic nuclear stress test which was negative she had echocardiogram done February 2020 which showed normal LV size and function with EF of 60% there was 1+ tricuspid and mitral regurgitation. Patient now has reproducible exertional symptoms and palpitations that can occur when she is bending over and gets short of breath she sits up straight for example weeding her [place] and the fluttering and palpitations occur. This occurs almost on a daily basis and is reproducible. The patient denies any maximo syncope. 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: No Accompanied by: Is patient in pain?: No Allergies latex Allergy (Mild, Verified 11/28/24 10:53) hives Sulfa (Sulfonamide Antibiotics) Allergy (Mild, Verified 11/28/24 10:53) hives Penicillins Allergy (Verified 11/28/24 10:53) Other codeine Adverse Reaction (Mild, Verified 11/28/24 10:53) palpitations levofloxacin (From Levaquin) Adverse Reaction (Mild, Verified 11/28/24 10:53) myalgias oxycodone (From OxyContin) Adverse Reaction (Verified 11/28/24 10:53) Nausea/Vom/Diarrhea Medications ???Medication ???Instructions ???Recorded ???Confirmed ???Type atorvastatin 20 mg tablet (Lipitor) 20 mg PO DAILY 09/26/18 5 History lorazepam 0.5 mg tablet 0.5 mg PO QHS PRN Anxiety 09/26/18 11/28/24 History zolpidem 10 mg tablet 10 mg PO QHS PRN insomnia 09/26/18 11/28/24 History celecoxib 100 mg capsule (Celebrex) 100 mg PO DAILY 04/05/21 History acetaminophen 500 mg capsule 500 mg PO Q6H PRN 11/28/24 5 History atenolol 25 mg tablet 12.5 mg PO QDAY 11/28/24 11/28/24 History docusate sodium 100 mg capsule 100 mg PO QDAY 11/28/24 11/28/24 H istory omeprazole 20 mg capsule,delayed 20 mg PO DAILY 11/28/24 11/28/24 H istory release Ejection fraction %: 60 Have you fallen in the past year?: No [facility] Restless leg syndrome Anxiety Osteopenia Back pain Osteoarthritis GERD (gastroesophageal reflux disease) COPD (chronic obstructive pulmonary disease) Emphysema of lung HTN (hypertension) Hyperlipide (more content not included)... Normal [facility] FERRITIN [CCL]on 09-30-2024 Ferritin [Mass/Vol] 171.0 ng/mL Normal 14.7-205.1 [facility] Comment on above: Result Comment: [facility] [place] [address] Favian Jama III, M.D. [id number] Performed By: #### 2 [address]186 #### [place] [id number] CBC + DIFFon 09-29-2024 Baso # 0.03 x10EE3/UL Normal 0.00 - 0.10 [facility] Comment on above: Performed By: #### 2 10323 #### [place] [id number] Basophils/100 WBC (Bld) 0.4 % Normal 0.0 - 2.0 [facility] Comment on above: Performed By: #### 2 18864 #### [address] [address] CBC + DIFF Normal [facility] Comment on above: Result Comment: CBC- COMPLETE BLOOD COUNT Performed By: #### 2 52682 #### [facility],[address] [place] [address] EO # 0.11 x10EE3/UL Normal 0.00 - 0.50 [facility] Comment on above: Performed By: #### 2 00968 #### [facility],[address] [place] [address] Eosinophils/100 WBC (Bld) 1.6 % Normal 0.0 - 7.0 [facility] Comment on above: Performed By: #### 2 73986 #### [facility],[address] [place] [address] Erythrocyte distribution width (RBC) [Ratio] 12.9 % Normal 12.0 - 15.6 [facility] Comment on above: Performed By: #### 2 43827 #### [facility],[address] [place] [address] Hematocrit (Bld) [Volume fraction] 43.2 % Normal 34.0 - 46.0 [facility] Comment on above: Performed By: #### 2 24817 #### [facility],[address] [place] [address] Hemoglobin (Bld) [Mass/Vol] 14.9 g/dL Normal 12.0 - 16.0 [facility] Comment on above: Performed By: #### 2 68965 #### [facility],[address] [place] [address] Lymph # 1.46 x10EE3/UL Normal 0.80 - 2.80 [facility] Comment on above: Performed By: #### 2 31683 #### [facility],[address] [place], [place] [id number] Lymphocytes/100 WBC (Bld) 20.3 % Normal 20.0 - 45.0 [facility] Comment on above: Performed By: #### 2 42142 #### [facility],[address] [place] [address] MANUAL DIFF N/A Normal [facility] Comment on above: Performed By: #### 2 00992 #### [facility],[address] [place] [address] MCH (RBC) [Entitic mass] 33 pg Normal 27 - 33 [facility] Comment on above: Performed By: #### 2 56136 #### [facility],[address] [place] [address] MCHC 34 X10 3 Normal 32 - 36 [facility] Comment on above: Performed By: #### 2 73458 #### [facility],[address] [place] [address] MCV (RBC) [Entitic vol] 96 fL Normal 80 - 99 [facility] Comment on above: Performed By: #### 2 81391 #### [facility],[address] [place] [address] [place] # 0.63 x10EE3/UL Normal 0.20 - 1.00 [facility] Comment on above: Performed By: #### 2 29459 #### [facility],[address] [place] [address] MONOS % 8.8 % Normal 0.0 - 10.0 [facility] Comment on above: Performed By: #### 2 97243 #### [facility],[address] [place] [address] Morphology Nav (Bld) [Interp] N/A Normal [facility] Comment on above: Performed By: #### 2 87549 #### [facility],[address] [place] [address] Neut # 4.95 x10EE3/UL Normal 1.50 - 7.10 [facility] Comment on above: Performed By: #### 2 43824 #### [facility],[address] [place] [address] 83845 Neutrophils/100 WBC (Bld) 68.9 % Normal 46.0 - 76.0 [facility] Comment on above: Performed By: #### 2 96889 #### [facility],[address] [place] [address] 35324 PLATELET 229 x10EE3/UL Normal 150 - 450 [facility] Comment on above: Performed By: #### 2 61339 #### [facility],[address] [place] [address] 64185 Platelet mean volume (Bld) [Entitic vol] 10.2 fL Normal 6.6 - 10.5 [facility] Comment on above: Result Comment: AUTO MATED DIFFERENTIAL Performed By: #### 2 34085 #### [facility],[address] [place] [address] 83296 RBC 4.51 x 10EE6/UL Normal 4.10 - 5.30 [facility] Comment on above: Performed By: #### 2 71539 #### [facility],[address] [place] [address] 01531 WBC 7.2 x 10EE3/UL Normal 4.5 - 10.8 [facility] Comment on above: Performed By: #### 2 03237 #### [facility],[address] [place] [address] 46247 CMP with eGFRon 09-29-2024 AGE 79 years Normal [facility] Comment on above: Performed By: #### 2 84432 #### [facility],[address] [place] [address] 20519 Albumin [Mass/Vol] 3.6 g/dL Normal 3.4 - 5.0 [facility] Comment on above: Performed By: #### 2 38186 #### [facility],[address] [place] [address] 14664 Albumin/Globulin [Mass ratio] 1.1 {ratio} Normal 0.9 - 1.6 [facility] Comment on above: Performed By: #### 2 47677 #### [facility],[address] [place] [address] 96269 ALK PHOS 70 U/L Normal 46 - 116 [facility] Comment on above: Performed By: #### 2 58241 #### [facility],[address] [place] [address] 76996 ALT [Catalytic activity/Vol] 25 U/L Normal 16 - 63 [facility] Comment on above: Performed By: #### 2 35495 #### [facility],[address] [place] [address] 60308 Anion gap [Moles/Vol] 9 mmol/L Low 10 - 20 [facility] Comment on above: Performed By: #### 2 37823 #### [facility],[address] [place] [address] 08773 AST [Catalytic activity/Vol] 17 U/L Normal 13 - 39 [facility] Comment on above: Performed By: #### 2 28372 #### [facility],[address] [place] [address] 11882 B/C RATIO 18 ratio Normal 0 - 30 [facility] Comment on above: Performed By: #### 2 77488 #### [facility],[address] [place] [address] 24960 Bilirubin [Mass/Vol] 0.5 mg/dL Normal 0.2 - 1.0 [facility] Comment on above: Performed By: #### 2 27207 #### [facility],[address] [place] [address] 00728 Calcium [Mass/Vol] 9.1 mg/dL Normal 8.5 - 10.1 [facility] Comment on above: Performed By: #### 2 27341 #### [facility],[address] [place] [address] 10144 Chloride [Moles/Vol] 107 mmol/L Normal 98 - 107 [facility] Comment on above: Performed By: #### 2 96166 #### [facility],[address] [place] [address] 15783 CMP with eGFR Normal [facility] Comment on above: Result Comment: COMP REHENSIVE METABOLIC PANEL Performed By: #### 2 88527 #### [facility],[address] [place] [address] 77566 CO2 [Moles/Vol] 31.9 mmol/L Normal 21.0 - 32.0 [facility] Comment on above: Performed By: #### 2 79622 #### [facility],[address] [place] [address] 38921 Creatinine [Mass/Vol] 0.99 mg/dL Normal 0.55 - 1.02 [facility] Comment on above: Performed By: #### 2 48266 #### [facility],[address] [place] [address] 47499 eGFR 54 ML/MINUTE Low 60 - 999 [facility] Comment on above: Performed By: #### 2 08055 #### [facility],[address] [place] [address] 61788 GFR/1.73 sq M.predicted among non-blacks MDRD (S/P/Bld) [Vol rate/Area] mL/min/{1.73_m2} Normal 60 - 999 [facility] Comment on above: Result Comment: ACCO RDING TO THE NATIONAL KIDNEY DISEASE EDUCATION PROGRAM(NKDE), A NORMAL eGFR IS A VALUE GREATER THAN OR EQUAL TO 60 ML/MIN/1.73 SQ METERS. CHRONIC KIDNEY DISEASE: <60mL/MIN/1.73 SQ METERS KIDNEY FAILURE: <15mL/MIN/1.73 SQ METERS THIS TEST SHOULD ONLY BE USED FOR PATIENTS 18 YEARS OF AGE AND OLDER. Performed By: #### 2 17785 #### [facility],[address] [place] [address] 33264 Globulin (S) [Mass/Vol] 3.2 g/dL Normal 1.5 - 3.8 [facility] Comment on above: Performed By: #### 2 24749 #### [facility],[address] [place] [address] 92106 Glucose [Mass/Vol] 95 mg/dL Normal 74 - 106 [facility] Comment on above: Performed By: #### 2 17901 #### [facility],[address] [place] [address] 22583 Potassium [Moles/Vol] 4.3 mmol/L Normal 3.5 - 5.1 [facility] Comment on above: Performed By: #### 2 85891 #### [facility],[address] [place] [address] 75236 Protein [Mass/Vol] 6.8 g/dL Normal 6.4 - 8.2 [facility] Comment on above: Performed By: #### 2 43182 #### [facility],[address] [place] [address] 61587 Sodium [Moles/Vol] 144 mmol/L Normal 136 - 145 [facility] Comment on above: Performed By: #### 2 84894 #### [facility],[address] [place] [address] 03748 Urea nitrogen [Mass/Vol] 18 mg/dL Normal 7 - 18 [facility] Comment on above: Performed By: #### 2 79127 #### [facility],[address] [place] [address] 99926 Ferritin SerPl-mCncon 2024 Ferritin [Mass/Vol] 171.0 ng/mL Normal 14.7-205.1 [facility] Comment on above: Order Comment: Speci men Type: BLOOD SPECIMEN Ordering Facility: [facility] Address: [address] [place] [address] Performed By: #### 2 276-4 #### [facility] CLIA [id number] [address] [place] [address] [place] LIPID PROFILEon 09-29-2024 Cholesterol [Mass/Vol] 210 mg/dL Normal 0 - 240 [facility] Comment on above: Performed By: #### 2 02432 #### [facility],[address] [place] [address] 97624 Cholesterol in HDL [Mass/Vol] 75 mg/dL High 40 - 60 [facility] Comment on above: Performed By: #### 2 16330 #### [facility],[address] [place] [address] 63226 Cholesterol in LDL [Mass/Vol] 119 mg/dL Normal 0 - 129 [facility] Comment on above: Performed By: #### 2 90639 #### [facility],[address] [place] [address] 68999 Cholesterol.total/Chol esterol in HDL [Mass ratio] 2.8 {ratio} Normal 0.0 - 5.0 [facility] Comment on above: Performed By: #### 2 53019 #### [facility],[address] [place] [address] 18771 Lipid 1996 panel Normal [facility] Comment on above: Result Comment: LIPI D PROFILE Performed By: #### 2 14484 #### [facility],[address] [place] [address] 84392 Triglyceride [Mass/Vol] 81 mg/dL Normal 0 - 150 [facility] Comment on above: Performed By: #### 2 31670 #### [facility],[address] [place] [address] 76323 TSHon 09-29-2024 TSH Qn 3.12 m[IU]/L Normal 0.35 - 3.74 [facility] Comment on above: Performed By: #### 2 40887 #### [facility],[address] [place] [address] 44246 VITAMIN D, 25 HYDROXYon - VitD 34.30 ng/mL Normal 30.00 - 100 [facility] Comment on above: Result Comment: 25-O HD3 indicates both endogenous production and supplementation. 25-OHD2 is an indicator of exogenous sources, such as diet or supplementation. Therapy is based on measurement of Total 25-OHD, with levels <20 ng/mL indicative of Vitamin D deficiency, while levels between 20 ng/mL and 30 ng/mL suggest insufficiency. Optimal levels are >=30ng/mL. Vitamin D, 25-OH D3 Not Established Vitamin D, 25-OH D2 Not Established Performed By: #### 2 71024 #### [facility],[address] [place] [address] 01-24-2023 Vit. D 25-Hydroxy 36.6 ng/mL Normal [facility] ([place]) Comment on above: Result Comment: Inte rpretive Values Based on Total 25(OH)D: Severe Deficiency <20 ng/mL Mild to Moderate Deficiency 20-30 ng/mL Optimum Levels 30-100 ng/mL Toxicity Possible >100 ng/mL Performed By: #### V IDH #### [place] [address] TB by QuantiFERON *OUTSIDE U SE ONLY*on 01-27-2020 Interpretation TBNEG Normal [facility] Comment on above: Performed By: #### I NTPGP #### [facility] [address] [place] [place] [id number] Mitogen minus Nil >10 Normal [facility] Comment on above: Performed By: #### I NTPGP #### [facility] Immunology [facility] [place] [phone] TB NIL 0.02 IU/mL Normal [facility] Comment on above: Performed By: #### I NTPGP #### [facility] [address] [place] [phone] TB Result NEGAT Normal Negative [facility] Comment on above: Performed By: #### I NTPGP #### [facility] [employer] [facility] [address] [place] [phone] TB1 Ag minus Nil 0.00 IU/mL Normal <0.35 [facility] Comment on above: Performed By: #### I NTPGP #### [facility] [address] [place] [address] TB2 Ag minus Nil 0.00 IU/mL Normal <0.35 [facility] Comment on above: Performed By: #### I NTPGP #### [facility] [address] [place] [address] 25-Hydroxy D2+D3on 0 25-Hydroxy D Total 30.9 ng/mL Normal 30.0-100.0 [facility] Comment on above: Performed By: #### D 2D3 #### [facility] Chemistry [address] [place] [address] 25-Hydroxy D2 <4.0 Normal [facility] Comment on above: Performed By: #### D 2D3 #### [facility] Chemistry [address] [place] [address] 25-Hydroxy D3 30.9 ng/mL Normal [facility] Comment on above: Performed By: #### D 2D3 #### [facility] Chemistry [address] [place] [address] Clinical Summary: HMSPatient IDon 08-28-2017 POS Invalid Interpretation Code [facility] Work Phone: Office Visit: Postop - 1st v china Rm:on 08-28-2017 NEGATED: Highlighted rowDocumentation of current medications (procedure) Done Invalid Interpretation Code [facility] Work Phone: Vital Signs Date Time Vital Sign Value Performing Clinician Facility 01-26-2025 08:04-0400 Body height 162.[address] Adali Alvarez MD Work Phone: [facility] 01-26-2025 08:04-0400 Body weight 62.[address] Adali Alvarez MD Work Phone: [facility] 01-23-2025 08:43-0400 Body mass index (BMI) [Ratio] 23.6 kg/m2 Dr. Adali Alvarez MD Work Phone: [facility] 01-08-2025 07:32-0400 Body height 162.[address] Adali Alvarez MD Work Phone: [facility] 01-08-2025 07:32-0400 Body mass index (BMI) [Ratio] 23.6 kg/m2 Dr. Adali Alvarez MD Work Phone: [facility] 01-08-2025 07:32-0400 Body weight 62.[address] Adali Alvarez MD Work Phone: 2(067)[phone] [address] 01-08-2025 07:32-0400 Diastolic blood pressure 77 mm[Hg] Dr. Adali Alvarez MD Work Phone: 2(076)750-283475 [place] [address] 01-08-2025 07:32-0400 Heart rate 59 /min Dr. Adali Alvarez MD Work Phone: 2(994)298-859487 [place] [address] 01-08-2025 07:32-0400 Respiratory rate 18 /min Dr. Adali Alvarez MD Work Phone: 7(659)106-857063 [address] 01-08-2025 07:32-0400 SaO2% (BldA) [Mass fraction] 100 % Dr. Adali Alvarez MD Work Phone: 4(325)[phone] [place] [address] 01-08-2025 07:32-0400 Systolic blood pressure 155 mm[Hg] Dr. Adali Alvarez MD Work Phone: [facility] 11-28-2024 10:53-0400 Body height 162.[address] Adali Alvarez MD Work Phone: [facility] 11-28-2024 10:53-0400 Body mass index (BMI) [Ratio] 23.5 kg/m2 Dr. Adali Alvarez MD Work Phone: [facility] 11-28-2024 10:53-0400 Body weight 62.[address] Adali Alvarez MD Work Phone: [facility] 11-28-2024 10:53-0400 Diastolic blood pressure 83 mm[Hg] Dr. Adali Alvarez MD Work Phone: [facility] 11-28-2024 10:53-0400 Heart rate 65 /min Dr. Adali Alvarez MD Work Phone: [facility] 11-28-2024 10:53-0400 Respiratory rate 18 /min Dr. Adali Alvarez MD Work Phone: [facility] 11-28-2024 10:53-0400 SaO2% (BldA) [Mass fraction] 98 % Dr. Adali Alvarez MD Work Phone: [facility] 11-28-2024 10:53-0400 Systolic blood pressure 136 mm[Hg] Dr. Adali Alvarez MD Work Phone: [facility] NEGATED: Highlighted [id number] 14:10-0400 BMI (Body Mass Index) 24.12 kg/m2 Radha Quintero RN [facility] Work Phone: NEGATED: Highlighted [id number] 14:10-0400 BP Diastolic 72 mm[Hg] Radha Quintero RN [facility] Work Phone: NEGATED: Highlighted [id number] 14:10-0400 BP Systolic 122 mm[Hg] Radha Quintero RN [facility] Work Phone: NEGATED: Highlighted [id number] 14:10-0400 Height 162.56 cm Radha Quintero RN [facility] Work Phone: NEGATED: Highlighted [id number] 14:10-0400 Height 163 cm Radha Quintero RN [facility] Work Phone: NEGATED: Highlighted [id number] 14:10-0400 Pulse (Heart Rate) 55 /min Radha Quintero RN [facility] Work Phone: NEGATED: Highlighted [id number] 14: Weight 63.5 kg Radha Quintero RN [facility] Work Phone: NEGATED: Highlighted [id number] 14: Weight 64 kg Abigail Luby RN [facility] Work Phone: Encounters Encounter Date Encounter Type Care Provider Facility Start: 02-17-2025 ambulatory [place] Facility:[facility] Start: 02-12-2025 End: 02-12-2025 ambulatory [facility] Facility:[facility] Start: 01-26-2025 End: 01-26-2025 Admission to same day surgery center Dr. Praful De León MD -[facility] Procedures Work Phone: Start: 01-26-2025 End: 01-26-[address] Adali Alvarez MD Work Phone: -[facility] Procedures Start: 01-13-2025 End: 01-13-[address] Jes Chapa MD -[facility] [place] Work Phone: Start: 01-13-2025 End: 01-13-2025 ambulatory July [place] Facility:[facility] Start: 01-08-2025 End: 01-08-2025 Patient encounter procedure Zayda Stewart NP-C -[facility] Work Phone: Start: 01-08-2025 End: 01-08-[address] Adali Alvarez MD Work Phone: -[facility] Start: 12-30-2024 Non-patient / Non-visit Dr. Catie AYALA -[facility] Start: 12-30-2024 End: 12-30-[address] Adali Alvarez MD Work Phone: -Cardiovascular Services Start: 12-30-2024 End: 12-30-[address] Ronak Cortes MD -Cardiovascular Services Work Phone: Start: 12-30-2024 End: 12-30-2024 ambulatory Ronak Cortes Facility:[facility] Start: 12-25-2024 End: 12-25-2024 ambulatory RAYMUNDO SPARKS [facility] Start: 11-28-2024 End: 11-28-[address] Adali Alvarez MD Work Phone: -Pulmonary Services/Neurology Start: 11-28-2024 End: 11-28-[address] Ronak Cortes MD -Pulmonary Services/Neurology Work Phone: Start: 11-28-2024 Non-patient / Non-visit Dr. Ronak Cortes MD -[facility] Work Phone: Start: 11-28-2024 End: 11-28-[address] Ronak Cortes MD -[facility] Work Phone: Start: 11-28-2024 End: 11-28-[address] Adali Alvarez MD Work Phone: -[facility] Start: 11-28-2024 End: 11-28-2024 ambulatory Ronak Cortes Facility:[facility] Start: 09-29-2024 End: 09-29-2024 ambulatory ADALI AYALA [facility] Start: 08-28-2017 End: 08-28-2017 Patient encounter procedure Ty Hong MD Work Phone: [facility] Work Phone: Procedures Date Procedure Procedure Detail Performing Clinician Start: 01-13-2025 Hepatitis C antibody measurement Dr. Adali Alvarez MD Work Phone: Comment on above: Reactive: Presumptiv e evidence of antibodies to HCV. Follow CDC recommendations for supplemental testing.Non-Reactive: Antibodies to HCV were not detected; does not exclude the possibility of exposure to HCVReactive Results are presumptive evidence of antibodies to HCV. Follow CDC recommendations for supplemental testing.Order confirmation testing: HCV Quant by PCR testing - HCVPCR #[id number] Non Reactive: < 0.8 Equivocal: >/= 0.8 to < 1.0 Reactive: >/= 1.0The CDC requires that a reactive/equivocal HCV antibody result be sent out for confirmation. HCV Quant by PCR testing. Start: 01-13-2025 In-vitro immunologic test Dr. Adali Alvarez MD Work Phone: Comment on above: QuantiFERON-TB Gold Plus is a qualitative indirect test forM tuberculosis infection (including disease) and isintended for use in conjunction with risk assessment,radiography, and other medical and diagnostic evaluations.The QuantiFERON-TB Gold Plus result is determined bysubtracting the Nil value from either TB antigen (Ag)value. The Mitogen tube serves as a control for the test. No response to M tub erculosis antigens detected.Infection with M tuberculosis is unlikely, but high riskindividuals should be considered for additional testing(ATS/IDSA/CDC Clinical Practice Guidelines, 2017). Thereference range is an Antigen minus Nil result of <0.35IU/mL.The specimen received for QuantiFERON testing was incubatedby the ordering institution. Specific procedures outlinedin our Directory of Services and in the package insert forthe QuantiFERON Gold (In Tube) test must be followed toenable for proper stimulation of cells for the productionof interferon gamma. Chemiluminescence immunoassaymethodology Start: 01-13-2025 Plain radiography of pelvis Dr. Adali Alvarez MD Work Phone: Start: 01-13-2025 Plain x-ray of hand Dr. Adali Alvarez MD Work Phone: Start: 01-08-2025 Radiologic exam chest [address] Adali Alvarez MD Work Phone: Start: 08-28-2017 End: 08-28-2017 Blood pressure within normal parameters - no follow-up required Ty Hong MD Work Phone: Start: 08-28-2017 End: 08-28-2017 BMI documented within normal parameters - no follow-up plan is required Ty Hong MD Work Phone: Start: 08-28-2017 End: 08-28-2017 Current medications documented Ty Hong MD Work Phone: Start: 08-28-2017 End: 08-28-2017 Pain assessment documented as positive - follow-up documented Ty Hong MD Work Phone: Start: 08-28-2017 End: 08-28-2017 Tobacco non-user Ty Hong MD Work Phone: Plan of Treatment Date Care Activity Detail Author Start: 01-26-2025 Patient discharge [facility] Start: 01-13-2025 In-vitro immunologic test [facility] Start: 01-13-2025 Plain radiography of pelvis Pelvis 1 or 2 Views [facility] Start: 01-13-2025 Plain x-ray of hand Hand Min 3 Views [facility] Start: 01-13-2025 XR Hand GE 3 Views [facility] Start: 01-13-2025 XR Pelvis 1 or 2 Views [facility] Start: 01-13-2025 Patient encounter procedure Registered Clinical -[facility] [place] Work Phone: Start: 01-08-2025 End: 01-08-2025 Evaluation of diagnostic study results [facility] Start: 11-28-2024 Evaluation of diagnostic study results [facility] Start: 10-30-2017 End: 10-30-2017 Appointment Appointment [facility] Work Phone: Start: 09-06-2017 End: 09-06-2017 Appointment Appointment [facility] Work Phone: Start: 08-28-2017 End: 08-28-2017 Appointment Appointment [facility] Work Phone: Cyclic citrullinated peptide IgG Ab [Units/volume] in Serum or Plasma [facility] Mycobacterium tuberc ulosis tuberculin stimulated gamma interferon [Presence] in Blood [facility] Stress echocardiography [facility] Immunizations Immunization Date Immunization Notes Care Provider Fa hi No information available. Radha Quintero RN [facility] Work Phone: Payers Date Payer Category Payer Self-pay 2011 Medicare [id number] 2007 Unknown [id number] 1945 Unknown [id number] 2.16.8 [id number] 1945 Unknown [id number] 2.16.8 [id number] Unknown [id number] 2.16.8 [id number] Unknown [id number] 2.16.8 [id number] Unknown [id number] 2.16.8 [id number] Unknown [id number] 2.16.8 [id number] Unknown [id number] 2.16.8 [id number] Unknown [id number] 2.16.8 [id number] Unknown [id number] 2.16.8 [id number] Unknown [id number] 2.16.8 [id number] Unknown [id number] 2.16.8 [id number] Social History Date Type Detail Facility Start: 08-28-2017 End: 08-28-2017 Assertion Unknown if ever smoked [facility] Work Phone: Start: 04-05-2021 End: 01-26-2025 Tobacco smoking status NHIS Ex-smoker (finding) [facility] Start: 1945 Sex Assigned At Female [facility] Sex Female [facility] Medical Equipment Procedure Code Equipment Code Equipment Origin al Text Equipment Identifier Dates MESH,SELF FIX [id number] FDA Start: 11-28-2018 MESH,SELF FIX [id number] FDA Start: 11-28-2018 MESH,SELF FIX [id number] FDA Start: 11-28-2018 MESH,SELF FIX [id number] FDA Start: 11-28-2018 MESH,SELF FIX [id number] FDA Start: 11-28-2018 Progress note 02-12-2025 Note Date & Type Note Facility 02-12-2025 Note HNO ID: [id number] Author: RO GUZMAN MD Service: ? Author Type: Physician Type: Progress Notes Filed: 02/12/2025 10:27 Note Text: HEADACHE / FACIAL PAIN MEDICINE NEW EVALUATION February 12, 2025 10:00 AM Trigeminal Neuralgia HPI Onset: - Pt reports October 2024 she had pain in her left V1/2 region. Rarely would get a tinge on the right V1 as well, but 95% was side-locked to the left. Side: left Distribution: V2 and V1 - V2 most prominent Any pain on the side or back of head: No Character: aching Duration: she would have the pain nearly constantly at the time, but pain much improved with gabapentin. Pain-free between episodes: No Triggers: none Sensory abnormalities: No Initial benefit from Tegretol/Trileptal: she has not tried this. History of MS: No History of Lyme disease: No History of shingles facial rash: No History of dental/oral surgery: No History of facial/plastic surgery: No Type of Trigeminal Neuralgia: classical trigeminal neuralgia TN type notes: Type II TN vs atypical facial pain. Imaging: no MRI-Brain. PAST MEDICAL HISTORY Diagnosis Date Acute gastritis Acute gastritis without mention of hemorrhage Anxiety state, unspecified Diaphragmatic hernia without mention of obstruction or gangrene Hiatal hernia Diarrhea Internal hemorrhoids without mention of complication Mitral valve disorders(424.0) Osteoporosis, unspecified Other and unspecified hyperlipidemia Personal history of colonic polyps Colon polyps Unspecified constipation Constipation Unspecified hemorrhoids without mention of complication Hemorrhoids PAST SURGICAL HISTORY Procedure Laterality Date ARTHROSCOPY, TMJ, SURGICAL 01/2009 COLONOSCOPY FLX DX W/COLLJ SPEC WHEN PFRMD 10/22/03 Colonoscopy COLONOSCOPY W/BIOPSY SINGLE/MULTIPLE 05/29/07 DILATION AND CURETTAGE DXAND/THER NONOBSTETRIC Dilation AND curettage EGD TRANSORAL BIOPSY SINGLE/MULTIPLE 05/29/07 ESOPHAGOGASTRODUODENOSCOPY TRANSORAL DIAGNOSTIC EGD PAST SURGICAL HISTORY OF breast implants PAST SURGICAL HISTORY OF endometrial bx was negative PAST SURGICAL HISTORY OF 09/01/14 facelift - [place] PAST SURGICAL HISTORY OF 2013 cervical discectomy Current Outpatient Medications Medication Sig gabapentin (NEURONTIN) 100 mg capsule Take 100 mg by mouth two times a day. losartan (COZAAR) 50 mg tablet Take 50 mg by mouth once daily. celecoxib (CELEBREX) 200 mg capsule Take 1 capsule by mouth once daily. DULoxetine (CYMBALTA) 30 mg capsule Take 1 capsule by mouth once daily. LORazepam (ATIVAN) 0.5 mg tab Take 1 tablet by mouth three times daily as needed. atorvastatin (LIPITOR) 10 mg ORAL tablet Take 1 tablet by mouth once daily. FIBER TAB Take one(1) tablet daily as necessary No current facility-administered medications for this visit. ALLERGIES Allergen Reactions Codeine Hydrocodone GI Upset, Vomiting Latex Rash Levaquin [Levofloxa* Other: See Comments Muscle aches Penicillins Rash Sertraline tachycardia,nausea Trazodone severe head congestion and dryness of mouth, increased heart rate FAMILY HISTORY Problem Relation Age of Onset Heart Father Coronary Artery Disease Mother Arthritis Mother SOCIAL HISTORY[1] PHYSICAL EXAMINATION 02/12/25 0948 BP: 105/63 BP Site: Left Arm Pulse: 85 Temp: 36 ?C (96.8 ?F) TempSrc: Temporal SpO2: 100% Weight: 62.6 kg (138 lb) Height: 162.6 cm (5' 4) General appearance: Well appearing, alert, in no acute distress, well-hydrated, well nourished. Head: Normocephalic, no masses, lesions, tenderness or abnormalities Eyes: Anicteric sclera. Extraocular movements are intact. Neuro: Negative findings: speech normal, mental status intact, cranial nerves VII intact, no focal findings. MRI Head/Brain - Last 2 Impressions No resulted procedures found. Kristina was seen today for trigeminal neuralgia. Diagnoses and all orders for this visit: Left-sided trigeminal neuralgia - MRI BRAIN WO/W IVCON; Future - iv contrast (will be provided with radiology test); MRI Brain Inject, intravenously, once for 1 dose.No IV access, insert saline lock prior to beginning of sedation, infusion, injection of imaging exam.Discontinue saline lock post exam. If Pt. has a central line or IVAD, may access for administration according to line specific nursing protocol.Once exam is complete flush line and de-access according to line specific nursing protocol in the MR contrast administration guidelines link - MRA BRAIN WO IVCON; Future - gabapentin (NEURONTIN) 100 mg capsule; Take 1 capsule by mouth two times a day for 180 days. Kristina Whittaker is a 79 year old year old female, with a history of left trigeminal neuralgia (Type II) with atypical features in that it would occasional occur on right as well. Her neurological examination is essentially normal at this visit. MRI-Brain, MRA-Brain ordered to evaluate for causes of TN (more content not included)... [facility] Radiology Diagnostic study note 01-08-2025 Note Date & Type Note Facility 01-08-2025 Radiology Diagnostic study note [facility] Imaging Services [address], [place] [address] Chest PA and Lateral MR#: [id number] Acct: [id number] Name: KRISTINA MCKEON Rep #: [id number] : 1945 F 79 From: Roberto Suárez MD PCP: Amber BinghamC Status: PRE [facility] Study:Chest PA and Lateral Date of Exam: 01/08/25 Exam# [id number] Ordering Dr: Yassine Dsouza PROCEDURE: CHEST PA AND LATERAL 01/08/2025 REASON FOR EXAM: CHEST PAIN, PRE-PROCEDURAL TECHNIQUE: Procedure Code: RADCXR Modality: DX Procedure: CHEST PA AND LATERAL COMPARISON: None. FINDINGS: There is scarring in the left lung base. There is no lobar consolidation or pleural effusion. The heart size is normal. There is calcific vascular disease of the thoracic aorta. Status post multilevel ACDFof the lower cervical spine. 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 RAD/Chest PA and Lateral IMPRESSION: Scarring in the left lung base. No evidence of acute cardiopulmonary pathology. Other findings as noted. 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 [address] [place] [address] OFFICE VISIT Date of Service: 01/08/25 MR#: [id number] Acct: [id number] Name: KRISTINA MCKEON Rep #: [id number] : 1945 Provider: TOMAS Stewart Age/Sex: 79/F Location[place] [facility] Status: Signed HPI HPI History of Present Illness Surgical H&P: Yes Details: This is a 79-year-old female who presents today for cardiovascular follow-up visit. Patient had been having exertional dyspnea on exertion and shortness of breath with some chest sensations when walking up an incline. She underwent a stress echocardiogram on 12/30/2024 which demonstrated suboptimal results due to low workload, and low exercise as well as significant ectopy during exercise. The patient carries a history of being diagnosed with mitral valve prolapse several years ago. She does report that she stopped exercising a few months agoand after that is when she started having the symptoms. Patient has a family history of coronary disease she quit smoking in 1989. She does have a history of hypertension and hyperlipidemia; she is not diabetic. The patient does not have COPD she was diagnosed with reactive airway disease several years ago was treated with inhalers for a short period of time and has had no recurrence. Thepatient had she was evaluated with stress testing in 2015 had a pharmacologic nuclear stress test which was negative she had echocardiogram done February 2020which showed normal LV size and function with EF of 60% there was 1+ tricuspid and mitral regurgitation. From a cardiac standpoint, the patient is doing well. She does acknowledge occasional palpitations. This is more with activity. She does acknowledge SOB with exertion, and walking up an incline. She does acknowledge occasional chest pain. She denies pressure or heaviness. She denies Orthopnea, and PND. She does not have bleeding issues; no blood in urine, stool, or nosebleeds. She denies any decrease in energy level, myalgias, or claudication. She does not have edema, or sudden weight gain. She does acknowledge occasional lightheadedness. She denies dizziness, syncopal or near syncopal episodes, and headaches. 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 Is patient in pain?: No Allergies latex Allergy (Mild, Verified 01/08/25 14:50) hives Sulfa (Sulfonamide Antibiotics) Allergy (Mild, Verified 01/08/25 14:50) hives Penicillins Allergy (Verified 01/08/25 14:50) Other codeine Adverse Reaction (Mild, Verified 01/08/25 14:50) palpitations levofloxacin (From Levaquin) Adverse Reaction (Mild, Verified 01/08/25 14:50) myalgias oxycodone (From OxyContin) Adverse Reaction (Verified 01/08/25 14:50) Nausea/Vom/Diarrhea Medications ?Medication ?Instructions ?Recorded ?Confirmed ?Type atorvastatin 20 mg tablet (Lipitor) 20 mg PO DAILY 01/08/25 History lorazepam 0.5 mg tablet 0.5 mg PO QHS PRN Anxiety 01/08/25 History zolpidem 10 mg tablet 10 mg PO QHS PRN insomnia 01/08/25 History acetaminophen 500 mg capsule 500 mg PO Q6H PRN 5 01/08/25 History docusate sodium 100 mg capsule 100 mg PO QDAY 11/28/24 01/08/25 History omeprazole 20 mg capsule,delayed 20 mg PO DAILY 01/08/25 History release atenolol 25 mg tablet 12.5 mg (1/2 x 25 mg) PO BID #180 01/02/25 01/08/25 Rx tabs Have you fallen in the past year?: No PFSH Medical History Restless leg syndrome Anxiety Osteopenia Back pain Osteoarthritis GERD (gastroesophageal reflux disease) COPD (chronic obstructive pulmonary disease) Emphysema of lung HTN (hypertension) Hyperlipidemia Surgical History (Reviewed 01/08/25 @ 14:50 by Zayda Stewart [employer], [employer]) History of inguinal hernia repair (~11/2018) History of neck surgery Status post tonsillectomy and adenoidectomy History of dilation and curettage History of esophagogastroduodenoscopy (EGD) (~2017) History of colonoscopy (~2017) History of bilateral breast implants Status post hip surgery History of back surgery (~2012) Family History Father Heart disease CHF (congestive heart failure) Diabetes Mother Heart disease Social History Smoking Status: Former smoker quit date: 04/16/89 pack-years: 24 Tobacco: How many years used: 24 alcohol intake: current details: Rarely ROS Const Const: Negative for fatigue, weakness, headache(s) or frequent falls Eyes Eyes: Negative for blurry vision ENT ENT: Negative for headache(s), dizziness or Nosebleed/epistaxis Cardio Chest Pain: Yes Palpitations: Yes Edema: None Muscle aches with walking: None Resp Respiratory: Positive for SOB with activity; Negative for SOB at rest or SOB orthopnea\SOB lying down GI GI: Positive for heartburn; Negative nausea, vomiting, bright, red blood in stools or black,tarry stools : Negative for hematuria Neuro Neuro: Positive for lightheadedness; Negative for dizziness, near syncope, syncope, frequent falls, headache(s), weakness or blurry vision Endo Endo: Negative for fatigue Cardiology Exam Const Appearance: cooperative, healthy appearing, comfortable, no acute distress and well developed Nutritional Appearance: average body habitus Orientation: alert and oriented x3 Head Head: normal to inspection Ears: hearing grossly normal bilaterally Nose: external nose normal Face and Sinus: face symmetric Eyes General: appearance normal, both eyes and all related structures Eyelids: eyelids normal Conjunctivae: conjunctivae normal Pupils: PERRL and pupil size EOM: EOM intact bilaterally Neck Neck: normal visual inspection and no JVD Carotids: Negative bruit Chest Chest inspection: normal inspection of the chest Auscultation: Bilateral: Clear to Auscultation Cardio Palpation: normal PMI Rate: bradycardic Rhythm: regular rhythm; Negative ectopic beats Heart sounds: S1 normal and S2 normal; Negative rub, gallop or murmur GI GI: normal to inspection and soft Neuro General: patient alert and patient oriented x3 Extremities Pulses: Normal: Right Posterior Tibial Pulse, Left Posterior Tibial Pulse, RightRadial Pulse and Left Radial Pulse Lower Extremity Edema: None: Bilateral Psych Psychological: normal affect Supplemental Info Supplemental Information Echocardiogram 02/16/2020 Interpretation Summary Normal LV size. Left ventricular systolic function is normal. The estimated ejection fraction is 60%. Stage I diastolic dysfunction. Mild (1+) tricuspid valve insufficiency. Mild (1+) eccentric mitral valve insufficiency. Stress Test Echo w/o Contrast 12/30/2024 Interpretation Summary Stress EKG. Resting EKG demonstrates normal sinus rhythm with a right bundle branch block premature ventricular complexes and a rate of 85 bpm. Resting blood pressure is 134/61 mmHg. The patient exercised according to regular [place] protocol for total duration of 3 minutes the maximum heart rate attained was 150bpm which was over 83% of max impacted heart rate. The patient was noted to have significant ventricular ectopy during exercise and also at rest. Upsloping EKG changes were noted which did not meet the criteria for ischemia the patient did however experience significant shortness of breath necessitating termination of the test at 4.6 METS. The peak blood pressure was 158/65 mmHg. Stress echocardiogram. The resting echocardiogram demonstrated preserved ejection fraction of 60% no obvious wall motion abnormalities were noted. At peak exercise there was improvement of ejection fraction to approximately 65% with no wall motion abnormalities noted. Significant ectopy was noted making appropriate image selection difficult. Conclusion: Exercise stress echo with suboptimal results due to low workload, and low exercise as well as significant ectopy during exercise. No obvious ischemia noted at this time but functional capacity appearsto be at least moderately reduced. Stress Test 02/07/2016 Conclusion 1. Normal physiologic response to LexiScan infusion. 2. No chest discomfort to suggest angina elicited with LexiScan infusion. 3. No ST changes to suggest ischemia elicited with LexiScan infusion. Conclusion 1. Subtle decrease in basal to mid inferolateral wall activity at rest normalized with LexiScan suggestive of hepatic/bowel associated artifact or diaphragmatic attenuation. 2. Apical perfusion defect at rest normalizing with LexiScan suggestive of apical thinning or soft tissues/breast attenuation. 3. No significant fixed defects to suggest infarct. 4. No reversible defects developing with LexiScan to suggest inducible ischemia. Diagnostics: Electrocardiogram Stress Echocardiogram Chest X-Ray Abdomen/Pelvis CT Pulmonary: Pulmonary Exercise Test Past Visits: Cardiology Visit Today Assessment and Plan Assessment and Plan (1) Shortness of breath: Status: Acute Plan: Patient continues to have dyspnea on exertion, walking up an incline. Her stress echocardiogram on 12/30/2024 which demonstrated suboptimal results due to low workload, and low exercise as well as significant ectopy during exercise. Dr. Cotres did review patient's images, and discussed with Dr. De León. The plan is to proceed with a cardiac catheterization to further assess this. Depending on results, further recommendations will be made. Cardiac catheterization instructions were reviewed with patient. She verbalizes understanding. (2) Chest pain: Status: Acute Qualifiers: Chest pain type: unspecified Qualified Code(s): R07.9 - Chest pain, unspecified Plan: Patient does acknowledge chest pain, this is reproducible with activity, specifically walking up an incline. Patient is EKG from today demonstrates sinus bradycardia with a rate of 55 bpm, and right bundle branch block. Given her significant risk factor profile with a family history hypertension, hyperlipidemia, being a remote smoker, and stress test showing suboptimal results due to low workload, and low exercise as well as significant ectopy, would like to proceed with a cardiac catheterization to further assess this. Depending on results, further recommendations will be made. Cardiac catheterization instructions were reviewed with patient. She will be asked to start aspirin 81 mg 10 days prior to procedure. She verbalizes understanding. Will keep close follow-up with patient. (3) Heart palpitations: Status: Acute Plan: Patient does acknowledge palpitations. Her most recent Holter monitor from 11/28/2024 demonstrated normal sinus rhythm with frequent PVCs and rare PACs, andright bundle branch block. Her average heart rate was noted to be 74 bpm. VE 5.9%, SVE 0.0%, atrial fibrillation 0.0%. This was reviewed with patient. She will continue atenolol 12.5 mg twice daily, along with monitoring for any concerning symptoms. (4) HTN (hypertension): Status: Chronic Plan: Patient has a history of hypertension. Her blood pressure is elevated in the office today at 155/77. She does acknowledge her blood pressures at home being lower. At this time she will continue atenolol 12.5 mg twice daily, and monitoring her blood pressures at home. She will notify our office of any persistently elevated or low blood pressure readings. Orders: Orders 12 Lead EKG performed by [facility] Today R00.2 - Palpitations Plan Details Additional Comments: Patient will follow-up in 3 months, or sooner if needed. Thank you for allowing me to participate in the care of your patient. Please donot hesitate to call if any issues arise. This note was generated using a voice recognition system and there may be incorrect words, spelling, or punctuation that were not noted when reviewing theoffice note prior to saving. Portions of this documentation were copied and pasted from previous office visitnotes to provide cohesive continuity of the history. The note has been reviewed,edited, and updated, as necessary. Follow Up: 3 Months ([employer]/PA) Coding Level of Care Code Off vis,est,level 4 Diagnoses Shortness of breath R06.02 Chest pain, unspecified type R07.9 Chest pain type: unspecified Heart palpitations R00.2 HTN (hypertension) I10 Coding Level of Care Code Off vis,est,level 4 Diagnoses Shortness of breath R06.02 Chest pain, unspecified type R07.9 Chest pain type: unspecified Heart palpitations R00.2 HTN (hypertension) I10 Clinical Quality Measures Falls Risk Screening/Assistive Devices Have you fallen in the past year?: No 01/08/25 7668 <Electronically signed by Zayda Stewart NP, NP-C> Date _ Zayda MARIN Cosigner Signature: Date (if applicable) CC: July TOMAS Bingham ~ [facility] Work Phone: Evaluation note 11-28-2024 Note Date & Type Note Facility 11-28-2024 Evaluation note Diagnosis Onset Date Resolution Chest pain acute November 28, 2 025 10:42am Heart palpitations acute November 28, 2024 10:42am Shortness of breath acute Augus t 2024 10:42am [facility] Work Phone: Evaluation note 11-28-2024 Note Date & Type Note Facility 11-28-2024 Evaluation note Diagnosis Onset Date Resolution Chest pain acute November 28, 2 025 10:42am Heart palpitations acute November 28, 2024 10:42am Shortness of breath acute Augus t 2024 10:42am Chest pain acute December 2:35pm Heart palpitations acute 2024 2:35pm Shortness of breath acute Dece mb2024 2:35pm HTN (hypertension) chronic 2024 2:35pm [facility] Work Phone: Evaluation note Note Date & Type Note Facility Evaluation note Diagnosis Onset Date Resolution Chest pain acute November 28, 2 025 10:42am Shortness of breath acute [facility] 2024 10:42am [facility] Work Phone: Reason for referral (narrative) Note Date & Type Note Facility Reason for referral (narrative) No reason for referral information available [facility] Work Phone: Instructions Instruction Description Start Date Completed Advance Directives No Advanced Directives Records Found Advance Directive Response Recorded Date/ Time Advance Directives Yes January 15, 2019 8:59am Advance Directive Response Recorded Date/ Time Advance Directives on File No Octob er 2024 8:04am Living Will Yes January 26 8:04am Do you have a Healthcare Pow er of School Health Aide? Yes January 26, 2025 8:04am Name of Medical Power of School Health Aide corey king band January 26, 2025 8:04am Advance Directives Yes January 26, 2025 8:04am Assessments There may be information available, but it has not been provided by the sender. Review of System There may be information available, but it has not been provided by the sender. Family History No Family History Records Found Relationship Condition Age at Onset Recorded Date/T dennis father Cardiac disease Unknown Congestive heart failure Unknown Diabetes mellitus Unknown mother Cardiac disease Unknown Summary Purpose Chief Complaint and Reason for Visit Chief Complaint Admit Date Prolapse Mitral Valve/Restlessness (Self ) November 28, 2024 10:42am Reason for Visit Admit Date Chest pain November 28, 2024 10 :42am Shortness of breath November 28, 2024 10 :42am Chief Complaint Admit Date Prolapse Mitral Valve/Restlessness (Self ) November 28, 2024 10:42am Palpitations November 28, 2024 11 :53am Reason for Visit Admit Date Chest pain November 28, 2024 10 :42am Heart palpitations November 28, 2024 10 :42am Shortness of breath November 28, 2024 10 :42am Chief Complaint Admit Date Prolapse Mitral Valve/Restlessness (Self ) November 28, 2024 10:42am Palpitations November 28, 2024 11 :08am Palpitations November 28, 2024 11 :53am Shortness of breath December 30, 2024 12:38pm UPDATE H & P January 08, 2025 2:35pm PAIN- COPY PCP January 13, 2025 3:03pm Reason for Visit Admit Date Chest pain November 28, 2024 10 :42am Heart palpitations November 28, 2024 10 :42am Shortness of breath November 28, 2024 10 :42am Chest pain January 08, 2025 2:35pm Heart palpitations January 08, 2025 2:35pm Shortness of breath January 08, 2025 2:35pm HTN (hypertension) January 08, 2025 2:35pm Chief Complaint Admit Date Prolapse Mitral Valve/Restlessness (Self ) November 28, 2024 10:42am Palpitations November 28, 2024 11 :08am Palpitations November 28, 2024 11 :53am Shortness of breath December 30, 2024 12:38pm UPDATE H & P January 08, 2025 2:35pm PAIN- COPY PCP January 13, 2025 3:03pm ABN STESS SOB CHEST PAIN January 26, 2 025 7:31am Additional Source Comments INFORMATION SOURCE (unrecogn ized section and content) DATE CREATED AUTHOR 01/27/2020 [facility] DATE CREATED AUTHOR AUTHOR'S ORGANIZ ATION 01/25/2023 [facility] ([place]) DATE CREATED AUTHOR AUTHOR'S ORGANIZ ATION 12/27/2024 [facility] DATE CREATED AUTHOR AUTHOR'S ORGANIZ ATION 02/13/2025 [facility] DATE CREATED AUTHOR AUTHOR'S ORGANIZ ATION 02/19/2025 [facility] Care Teams (unrecognized sec tion and content) Team Status: Active Member Role/Relationship Status Dates Dr. Adali Alvarez MD Family Provider Active July Otilia , [employer] Primary Care Provider Active Team Status: Inactive Member Role/Relationship Status Dates Dr. Adali Alvarez MD Referring Provider Active Start: November 28, 2024 End: November 28, 2024 Dr. Ronak Cortes MD Attending Provider Active Start: November 28, 2024 End: November 28, 2024July Otilia , [employer] Primary Care Provider Active Start: November 28, 2024 End: November 28, 2024 Team Status: Active Member Role/Relationship Status Dates Amber Bingham [employer] Primary Care Provider Active Team Status: Inactive Member Role/Relationship Status Dates Amber Otilia [employer] Primary Care Provider Active Start: November 28, 2024 End: November 28, 2024 Dr. Ronak Cortes MD Attending Provider Active Start: November 28, 2024 End: November 28, 2024 Dr. Ronak Cortes MD Referring Provider Active Start: November 28, 2024 End: November 28, 2024 Team Status: Active Member Role/Relationship Status Dates Amber Bingham [employer] Primary care physician Active Team Status: Inactive Member Role/Relationship Status Dates Dr. Adali Alvarez MD Referring Provider Active Start: November 28, 2024 End: November 28, 2024 Dr. Ronak Cortes MD Attending physician Active Start: November 28, 2024 End: November 28, 2024 Amber Bingham [employer] Primary care physician Active Start: November 28, 2024 End: November 28, 2024 Team Status: Active Member Role/Relationship Status Dates Amber Otilia [employer] Primary care physician Active Start: November 28, 2024 Dr. Ronak Cortes MD Attending physician Active Start: November 28, 2024 Dr. Ronak Cortes MD Referring Provider Active Start: November 28, 2024 Team Status: Inactive Member Role/Relationship Status Dates Amber Bingham [employer] Primary care physician Active Start: November 28, 2024 End: November 28, 2024 Dr. Ronak Cortes MD Attending physician Active Start: November 28, 2024 End: November 28, 2024 Dr. Ronak Cortes MD Referring Provider Active Start: November 28, 2024 End: November 28, 2024 Team Status: Active Member Role/Relationship Status Dates July Otilia [employer] Primary care physician Active Start: December 30, 2024 Dr. Ronak Cortes MD Attending physician Active Start: December 30, 2024 Dr. Ronak Cortes MD Referring Provider Active Start: December 30, 2024 Team Status: Active Member Role/Relationship Status Dates July Otilia [employer] Primary care physician Active Start: December 30, 2024 Dr. Praful De León MD Attending physician Active Start: December 30, 2024 Team Status: Inactive Member Role/Relationship Status Dates July Dresden , [employer] Primary care physician Active Start: January 08, 2025 End: January 08, 2025 Amber Bingham [employer] Referring Provider Active St art: January 08, 2025 End: January 08, 2025 Zayda Stewart NP, [employer] Attending physician Active Start: January 08, 2025 End: January 08, 2025 Team Status: Active Member Role/Relationship Status Dates July Otilia [employer] Primary care physician Active Start: January 13, 2025 Dr. Jes Chapa MD Attending physician Active Start: January 13, 2025 Dr. Jes Chapa MD Referring Provider Active Start: January 13, 2025 Team Status: Inactive Member Role/Relationship Status Dates July Otilia [employer] Primary care physician Active Start: December 30, 2024 End: December 30, 2024 Dr. Ronak Cortes MD Attending physician Active Start: December 30, 2024 End: December 30, 2024 Dr. Ronak Cortes MD Referring Provider Active Start: December 30, 2024 End: December 30, 2024 Team Status: Inactive Member Role/Relationship Status Dates July Otilia [employer] Primary care physician Active Start: January 13, 2025 End: January 13, 2025 Dr. Jes Chapa MD Attending physician Active Start: January 13, 2025 End: January 13, 2025 Dr. Jes Chapa MD Referring Provider Active Start: January 13, 2025 End: January 13, 2025 Team Status: Inactive Member Role/Relationship Status Dates July Otilia [employer] Primary care physician Active Start: January 26, 2025 End: January 26, 2025 Dr. Praful De León MD Attending physician Active Start: January 26, 2025 End: January 26, 2025 Dr. Praful De León MD Referring Provider Active S tart: January 26, 2025 End: January 26, 2025 Goals (unrecognized section and content) Goals may be documented in a n alternate sectionGoals may be documented in an alternate sectionGoals may be documented in an alternate sectionGoals may be documented in an alternate sectionGoals may be documented in an alternate section FOR RECORDS PERTAINING TO PATIENTS WHO ARE OR HAVE BEEN ENROLLED IN A CHEMICAL DEPENDENCY/SUBSTANCEABUSE PROGRAM, SOME INFORMATION MAY BE OMITTED. This clinical summary was aggregated from multiple sources. Caution should be exercised in using it in the provision of clinical care. This summary normalizes information from multiple sources, and as a consequence, information in this document may materially change the coding, format and clinical context of patient data. In addition, data may be omitted in some cases. CLINICAL DECISIONS SHOULD BE BASED ON THE PRIMARY CLINICAL RECORDS. [employer] provides no warranty or guarantee of the accuracy or completeness of information in this document.
[2025-03-25 15:23] LABS: Hematocrit 41.0 % (37-47); Hemoglobin 13.6 g/dL (12.0-15.0); Immature Granulocytes Count 0.030 X10^3/uL (0.0-0.0); Mean Corp Hgb Conc 33.2 g/dL (32-36); Mean Corpuscular Volume 96.5 fL (81-99); Mean Platelet Vol. 12.0 fl (6.2-12.0); NRBC Flagged by Analyzer 0 % (0-5); Platelet Count 165 K/mm3 (150-450); RBC Distribution Width CV 12.8 % (11.6-14.6); RBC Distribution Width SD 45.2 fl (35.1-43.9); Red Blood Count 4.25 M/mm3 (4.2-5.4); White Blood Count 9.9 K/mm3 (4.4-11.0)
[2025-03-25 15:47] LABS: AST(SGOT) 27 U/L (<=31); Alanine Aminotransfer ALT/SGPT 21 U/L (<=34); Albumin, Serum 4.5 g/dL (3.4-4.8); Alkaline Phosphatase 59 U/L (35-104); Anion Gap 13 (5-15); BUN 20 mg/dL (4-19); BUN/Creat Ratio 20.0 RATIO (10-20); Calcium,Total 9.7 mg/dL (7.6-11.0); Carbon Dioxide 26.3 mmol/L (21.0-32.0); Chloride 105 mmol/L (98-108); Globulin 2.9 g/dL (2.2-4.2); Glucose 87 mg/dL (70-99); Potassium 3.8 mmol/L (3.3-5.1)
== END | disposition home or self-care (01) ==
LOC: MTLAB 12:32
PROVIDERS: PCP Nurse Practitioner Acute Care; Referring Provider Internal Medicine Rheumatology; Visit Provider Internal Medicine Rheumatology
DX: M06.09 Rheumatoid arthritis without rheumatoid factor, multiple sites (principal); Z79.899 Other long term (current) drug therapy
CPT/HCPCS: 36415; 80053; 85025